=== PATIENT | female | born 1980 | race Caucasian/White ===

== ENCOUNTER 2023-05-19 18:49 | Emergency (ER) | payer MEDICAID, SELFPAY ==
[2023-05-19 18:58] VITALS: BP 104/52; BP 113/70; PULSE 90; PULSE 98; RESP 18; TEMP 37.2; O2SAT 94; O2SAT 97; BMI 34.1
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
--- OUTSIDE RECORDS SUMMARY | 2023-05-19 19:58 | XMS_ITS | Continuity of Care Document ---
Author Name Unknown Organization [facility] Address [address] [address]- Care Team Providers Care New Autos Delivery Driver Name Role Phone Valarie Cheung MD Primary Care Physician [place] [facility] [place] [facility] [address] [address]- Attending Physician: Valarie Cheung MD Admitting Physician: Valarie Cheung MD Referring Physician: Valarie Cheung MD Allergies, Adverse Reactions, Alerts Substance Reaction Severity Status Cipro Active Medications No Known Medications Vital Signs Most recent to oldest [Reference Range]: 1 Height 175 cm (03/12/21 2:15 PM) Weight 62 kg (03/12/21 2:15 PM) Oxygen Saturation [94-100 %] 98 % (03/12/21 2:15 PM) Pulse Rate [55-90 bpm] 111 bpm *H* (03/12/21 2:15 PM) Body Mass Index [18.5-24.99] 20.24 (03/12/21 2:15 PM) Blood Pressure [90-138/55-84 mm Hg] 102/ 70mm Hg (03/12/21 2:15 PM) Blood pressure sites Arm, left (03/12/21 2:15 PM) Weight Obtained Via Standing scale (03/12/21 2:15 PM)
--- OUTSIDE RECORDS SUMMARY | 2023-05-19 19:58 | XMS_ITS | Continuity of Care Document ---
Author Name Unknown Organization [facility] Address [address] [place] [address]- Care Team Providers Care Medical Insurance Clerk Name Role Phone Valarie Cheung MD Primary Care Physician Encounter [facility] [place] Date(s): 09/27/21 - 10/04/21 [facility] [address] [place] [address]- Encounter Diagnosis Migraine(Discharge Diagnosis) - 09/27/21 Attending Physician: Gil Garcia Referring Physician: Not on Staff, Referring MD Allergies, Adverse Reactions, Alerts Substance Reaction Severity Status Cipro Active Medications SUMAtriptan 100 mg oral tablet 1 tablet = 100 mg, By Mouth, Daily, PRN for migraine headache, may repeat dose after 2 hours up to a maximum of 2, # 9 tablet, 0 Refills, Acute 10/11/21 10:57:00 EST, 09/27/21 10:57:00 EST, Tablet, [id number], Partial fill upon patient requ... Start Date: 09/27/21 Stop Date: 10/11/21 Status: Ordered Problem List Diagnosis Diagnosis Type Effective Dates Health Status Clini scottie Service Informant Migraine Discharge Diagnosis 09/27/21
--- OUTSIDE RECORDS SUMMARY | 2023-05-19 19:58 | XMS_ITS | Continuity of Care Document ---
Author Name Unknown Organization [facility] Address [address] [place] [id number]- Care Team Providers Care Technical Services Specialist Name Role Phone Valarie Cheung MD Primary Care Physician Encounter [facility] [place] Date(s): 04/22/21 - 05/22/21 [facility] [address] [address] [place] Allergies, Adverse Reactions, Alerts Substance Reaction Severity Status Cipro Active
--- OUTSIDE RECORDS SUMMARY | 2023-05-19 19:58 | XMS_ITS | Continuity of Care Document ---
Author Name Unknown Organization [facility] Address [address] [place] [address]- Care Team Providers Care Automatic Thread Winder Name Role Phone Valarie Cheung MD Primary Care Physician [phone] Encounter [facility] [place] Date(s): 03/07/21 - 04/06/21 [facility] [address] [place] [address]- Attending Physician: AdmtrKathleen Admitting Physician: Admtr, Ar8 Referring Physician: Admtr, Ar8 Allergies, Adverse Reactions, Alerts Substance Reaction Severity Status Cipro Active
--- OUTSIDE RECORDS SUMMARY | 2023-05-19 19:58 | XMS_ITS | Continuity of Care Document ---
Author Name Unknown Organization [facility] Address [address] [phone]- Care Team Providers Care Spray Worker Name Role Phone Valarie Cheung MD Primary Care Physician [place] [facility] [place] 05/19/21 [facility] [address] [address]- Attending Physician: Lana Santoyo MD Admitting Physician: Lana Santoyo MD Referring Physician: Valarie Cheung MD Allergies, Adverse Reactions, Alerts Substance Reaction Severity Status Cipro Active
--- OUTSIDE RECORDS SUMMARY | 2023-05-19 19:58 | XMS_ITS | Continuity of Care Document ---
Author Name Unknown Organization [facility] Address [address] [address]- Care Team Providers Care Distribution Center Administrator Name Role Phone Valarie Cheung MD Primary Care Physician Encounter [facility] Date(s): 04/09/21 - 05/09/21 [facility] [address] [address]- [place] Allergies, Adverse Reactions, Alerts Substance Reaction Severity Status Cipro Active
--- OUTSIDE RECORDS SUMMARY | 2023-05-19 19:58 | XMS_ITS | Continuity of Care Document ---
Author Name Unknown Organization [facility] Address [address] [place] [id number]- Care Team Providers Care Wharf Attendant Name Role Phone Valarie Cheung MD Primary Care Physician [place] [facility] [place](s[place] 04/03/21 - 04/10/21 [place] [id number] [address]- Attending Physician: Laan Santoyo MD Admitting Physician: Lana Santoyo MD Referring Physician: Lana Santoyo MD Allergies, Adverse Reactions, Alerts Substance Reaction Severity Status Cipro Active
--- OUTSIDE RECORDS SUMMARY | 2023-05-19 19:59 | XMS_ITS | Continuity of Care Document ---
Author Name Unknown Organization [facility] Address [address] [id number]- Care Team Providers Care Microbiology Lab Analyst Name Role Phone Valarie Cheung MD Primary Care Physician Encounter [facility] [place] Date(s): 04/03/21 - 05/03/21 [place] [id number] [address]- Attending Physician: Admtr, Ar8 Admitting Physician: Admtr, Ar8 Referring Physician: Admtr, Ar8 Allergies, Adverse Reactions, Alerts Substance Reaction Severity Status Cipro Active
--- OUTSIDE RECORDS SUMMARY | 2023-05-19 19:59 | XMS_ITS | Continuity of Care Document ---
Author Name Unknown Organization [facility] Address [address] [id number]- Care Team Providers Care Compensation Manager Name Role Phone Valarie Cheung MD Primary Care Physician [phone] Encounter [facility] [place] Date(s): 05/12/21 - 06/11/21 [place] [id number], [place] [address]- Attending Physician: Admtr, Ar8 Admitting Physician: Admtr, Ar8 Referring Physician: Admtr, Ar8 Allergies, Adverse Reactions, Alerts Substance Reaction Severity Status Cipro Active
--- OUTSIDE RECORDS SUMMARY | 2023-05-19 19:59 | XMS_ITS | Continuity of Care Document ---
Author Name Unknown Organization [facility] Address [address] [place] [address]- Care Team Providers Care Mortician Supplies Sales Representative Name Role Phone Valarie Cheung MD Primary Care Physician [place] [facility] [place]): [place] - 10/27/21 [facility] [address] [place] [address]- Attending Physician: Admtr, Ar8 Admitting Physician: Admtr, Ar8 Referring Physician: Admtr, Ar8 Allergies, Adverse Reactions, Alerts Substance Reaction Severity Status Cipro Active
[2023-05-19] MEDS: Erythromycin Base 0.5% Oph Oin 1 GM TUBE 1 CM EYE-LEFT (20:13)
[2023-05-19] MEDS: Diphth,Pertus(ACell),Tet Adult 0.5 ML SYRINGE IM (20:13)
[2023-05-19] MEDS: Bacitracin Oint 0.9 GM PACKET 4 APPL TOPICAL (20:13)
[2023-05-19 20:34] LABS: MANUAL DIFF FLAG NO
[2023-05-19 20:42] LABS: Basophils Absolute Auto 0.1 X10*3/uL (0.0-0.2); Basophils Percent Auto 0.6 % (0-2); Eosinophils Absolute Auto 0.2 X10*3/uL (0.0-0.4); Eosinophils Percent Auto 1.6 % (0-4); Hematocrit 34.4 % (37.0-47.0); Hemoglobin 11.8 g/dl (12.0-16.0); Imm Gran Abs Auto 0.06 X10*3/uL (0.00-0.03); Imm Gran Pct Auto 0.6 % (0.0-0.4); Lymphocytes Absolute Auto 1.5 X10*3/uL (1.2-4.9); Lymphocytes Percent Auto 15.5 % (20-40); Mean Corpuscular HGB Conc 34.3 g/dl (31.0-35.0); Mean Corpuscular Hemoglobin 32.2 pg (27.0-33.0); Mean Platelet Volume 10.7 fL (9.4-12.3); Monocytes Absolute Auto 0.9 X10*3/uL (0.1-1.2); Monocytes Percent Auto 8.7 % (2-11); Neutrophils Absolute Auto 7.1 x10*3/uL (2.0-8.3); Platelet Count 239 X10*3/uL (160-400); Red Blood Count 3.66 X10*6/uL (4.20-5.50); Red Cell Distribution Width 13.2 % (11.0-16.0); White Blood Count 9.8 X10*3/uL (4.8-10.8)
[2023-05-19 20:50] LABS: Lactic Acid 1.2 mmol/L (0.5-2.0)
[2023-05-19 21:03] LABS: Alanine Aminotransferase 24 U/L (0-31); Albumin Level 3.5 g/dL (3.5-5.0); Alkaline Phosphatase 79 U/L (39-117); Anion Gap 12 (12-20); Aspartate Amino Transferase 16 U/L (5-31); Bilirubin Direct 0.1 mg/dL (0.0-0.5); Blood Urea Nitrogen 16 mg/dL (9-16); Calcium 9.2 mg/dL (8.4-10.2); Carbon Dioxide 27 mmol/L (22-29); Chloride 102 mmol/L (96-108); Creatinine Clr Calc Pharmacy 134.6; Estimated Glomerular Filt Rate > 60; Glucose Random 105 mg/dL (60-115); Potassium 4.1 mmol/L (3.3-5.1); Sodium 137 mmol/L (135-145); Total Protein 6.1 g/dL (6.5-8.0)
[2023-05-19 21:07] LABS: Bilirubin Total < 0.5 mg/dL (0.0-1.0)
== END 2023-05-19 22:21 | disposition home or self-care (01) ==
PROVIDERS: Emergency Provider Emergency Medicine; PCP Physician Assistant
DX: S00.81XA Abrasion of other part of head, initial encounter (principal); T22.242A Burn of second degree of left axilla, initial encounter; T20.26XA Burn of second degree of forehead and cheek, initial encounter; T31.0 Burns involving less than 10% of body surface; H10.9 Unspecified conjunctivitis; X08.8XXA Exposure to other specified smoke, fire and flames, initial encounter; Y93.9 Activity, unspecified; Y92.9 Unspecified place or not applicable; Y99.9 Unspecified external cause status; Z23 Encounter for immunization; Z79.899 Other long term (current) drug therapy
CPT/HCPCS: 16025; 36415; 80048; 80076; 83605; 85025; 87040; 90471; 90715; 99282; 99284

== ENCOUNTER 2024-06-14 07:08 | Emergency (ER) | payer OTHER, SELFPAY ==
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
[2024-06-14 07:30] VITALS: BP 127/83; PULSE 81; RESP 18; TEMP 36.9; O2SAT 94; BMI 40.7
[2024-06-14 07:33] VITALS: BP 127/83; PULSE 81; RESP 18; TEMP 36.9; O2SAT 94
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
--- OUTSIDE RECORDS SUMMARY | 2024-06-14 07:58 | XMS_ITS | Patient Health Record ---
Author Organization [facility] Address [address] [place], [place] [id number] Support Name Relationship Address Phone Rita Begum Emergency Contact [address] [place] [address] Charline Hernandez Guarantor Unknown Allergies Allergen (clinical drug ingredient) Drug/Non Drug Allergy documented on EMR Reaction Allergy Type Onset Date Status ciprofloxacin Cipro Unknown Drug Allergy Act negar penicillin rash Drug Allergy Active Reason For Referral No Information Medications Medication SIG (Take, Route, Frequency, Duration) Notes Start Date End Date Status Valium 10 mg 1 tab(s) orally 3 times a day for 30 days Active cyclobenzaprine 5 mg 1 tab(s) orally qid for 30 day(s) 4 times a day Active metoclopramide 5 mg 1 tab(s) orally 4 times a day (before meals and at bedtime) for 12 week(s) as needed Not-Taking Social History Tobacco Use: Social History Observation Description Date Details (start date - stop date) Never Smoker NA - NA Smoking: Question Answer Notes Are you a: Never Smoker Problems Problem Type SNOMED Code ICD Code Onset Dates Problem Status W/U Status Risk Notes Problem Vitamin D deficiency (38911632) Vitamin D deficiency, unspecified (E55.9) Active confirmed Problem Anxiety disorder (988857250) Anxiety disorder, unspecified (F41.9) Active confirmed Problem Cramp in lower leg associated with rest (002943638) Sleep related leg cramps (G47.62) Active confirmed Problem Atherosclerosis of renal artery (41937463) Atherosclerosis of renal artery (I70.1) Active confirmed Problem Fibromyalgia (531981359) Fibromyalgia (M79.7) Active confirmed Problem 

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
--- NOTE | 2024-06-14 10:27 | PHA.MEDREC ---
Addendum entered by Freda Sanabria RPh 06/14/24 13:07: Med rec was reviewed by [facility]. Original Note: Pharmacy Consult ? Medication Reconciliation Pharmacy has completed the medication reconciliation. Spoke to patient to confirm med list patient states she is not taking any antibiotics, she takes Vitamin D2 1,250 on Mondays, she is now on Bupropion 300 mg daily. Patient says she is still taking Duloxetine 20 mg, however last fill date was 04-06 for 30 days. Patient has not started started taking Wegovy 0.25 every week .
[2024-06-14 16:18] VITALS: BP 142/91; PULSE 83; RESP 16; TEMP 36.9; O2SAT 94
--- NOTE | 2024-06-14 17:12 | PC.NURSE ---
Pt seen by Case Management and ready for D/C. Pt in need of ambulance for transportation home--Stefan expected around 5:30-6P. Pt will be sent to overflow unit while awaiting transportation. RN report given to JI Potts.
[2024-06-14 17:47] VITALS: BP 142/91; PULSE 83; RESP 16; TEMP 36.9; O2SAT 94
== END 2024-06-14 17:47 | disposition home or self-care (01) ==
PROVIDERS: Emergency Provider Emergency Medicine; PCP Pediatrics
DX: R39.89 Other symptoms and signs involving the genitourinary system (principal); E11.9 Type 2 diabetes mellitus without complications; Z79.84 Long term (current) use of oral hypoglycemic drugs; Z79.899 Other long term (current) drug therapy; Z79.85 Long-term (current) use of injectable non-insulin antidiabetic drugs
CPT/HCPCS: 99283; 99284

== ENCOUNTER 2024-08-10 12:03 | Inpatient (IN) | payer OTHER, SELFPAY ==
--- NOTE | ~2024-08-10 | XR_ITS ---
EXAMINATION: XR CERVICAL SPINE CLINICAL INFORMATION: Neck pain COMPARISON: None available. TECHNIQUE: AP and lateral views FINDINGS: Examination is nondiagnostic base and the inability to position patient in lateral projection. AP view revealed no abnormal findings in the visualized cervical spine and soft tissues. XR/XR cervical spine 2V IMPRESSION: Nondiagnostic study Electronically signed by: Manish Buckner MD 08/11/2024 04:02 PM EST
--- NOTE | ~2024-08-10 | CT_ITS ---
EXAMINATION: CT ANGIOGRAM OF THE CHEST WITH AND WITHOUT CONTRAST (CT PULMONARY ANGIOGRAM FOR PE) CLINICAL INFORMATION: sob, new hypoxia COMPARISON: No pertinent prior studies are available for comparison. TECHNIQUE: Prior to contrast administration, noncontrast localization images were obtained. Subsequently, multidetector volumetric imaging was performed from the thoracic inlet to the pubic symphysis through the chest, abdomen, and pelvis following the administration of 85 mL Omnipaque 350 intravenous contrast. No contrast reaction reported Sagittal, coronal, and MIP oblique sagittal (through the chest only) reformatted images were obtained on the CT workstation, uploaded to PACS, and reviewed. This CT examination was performed using dose optimization techniques as appropriate, variously including the following: *Automated exposure control *Adjustment of mA and/or kV according to patient size (this includes techniques or standardized protocols for targeted exams where dose is matched to indication/reason for exam; i.e. extremities or head) *Use of iterative reconstruction technique Total exam dose-length product: 869 mGy-cm FINDINGS: QUALITY OF STUDY/CONTRAST BOLUS: Markedly suboptimal. Attenuation of the pulmonary arteries 60 Hounsfield units. Over 250 Hounsfield units would be considered diagnostic. PULMONARY ARTERIES: There are no central pulmonary emboli detected. The presence or absence of pulmonary emboli beyond this cannot be commented upon with any degree of accuracy. There is a hypoattenuating area in the right lower lobe pulmonary artery that could represent an embolus (see brar image) but based upon this exam I cannot state this with any degree of certainty. Would recommend a repeat study. CORONARY ARTERY CALCIUM: None THORACIC AORTA: No aneurysm. LUNG: No focal consolidation, nodules or masses. Left basilar atelectasis is seen. PLEURA: No pleural effusion or pneumothorax. MEDIASTINUM: Normal heart size. No pericardial effusion. No hilar or mediastinal lymphadenopathy. No evidence of septal bowing or right heart strain. CHEST WALL/AXILLA: No axillary or internal mammary lymphadenopathy. OSSEOUS STRUCTURES: No acute or suspicious osseous abnormality. VISUALIZED ABDOMEN: The liver is markedly enlarged and low attenuation consistent with hepatic steatosis. The spleen is enlarged at 14 cm in greatest length. The visualized pancreas, adrenal glands and kidneys are unremarkable. CT/CT chest w IV con IMPRESSION: 1. Markedly suboptimal study. No central pulmonary emboli are seen. The presence or absence of pulmonary emboli beyond this cannot be commented upon with any degree of certainty. There is a question of a defect in a right lower lobe vessel. I would highly recommend a repeat study or VQ scan. 2. Incidental note made of enlarged fatty liver and splenomegaly. 3. VTE: indeterminate. Fleischner guidelines were followed. Electronically signed by: Vidal Mcdaniel MD 08/10/2024 08:48 PM [facility]
--- NOTE | ~2024-08-10 | XR_ITS ---
EXAMINATION: XR CHEST CLINICAL INFORMATION: Shortness of breath. COMPARISON: None available. TECHNIQUE: Frontal view of the chest was obtained. FINDINGS: Rotated patient positioning limits evaluation. No large, confluent airspace consolidation. No pleural effusion or pneumothorax. Limited evaluation of the cardiomediastinal silhouette. No acute osseous abnormality. XR/XR chest 1V IMPRESSION: Rotated patient positioning limits evaluation. No large, confluent airspace consolidation. Electronically signed by: Celestine Michele MD 08/10/2024 05:51 PM [facility]
[2024-08-10 12:21] VITALS: BP 100/84; BP 119/74; PULSE 88; RESP 16; TEMP 36.7; O2SAT 95; O2SAT 98; BMI 42.2
--- NOTE | 2024-08-10 12:25 | ECG_ITS ---
Test Reason : SOB Blood Pressure : / mmHG Vent. Rate : 083 BPM Atrial Rate : 083 BPM P-R Int : 170 ms QRS Dur : 080 ms QT Int : 362 ms P-R-T Axes : 024 012 -11 degrees QTc Int : 425 ms Normal sinus rhythm Normal ECG No previous ECGs available Referred By: Generic ED Physician Electronically Signed By:Lit Velez
[2024-08-10 13:30] LABS: MANUAL DIFF FLAG NO
[2024-08-10 13:32] LABS: Basophils Absolute Auto 0.1 X10*3/uL (0.0-0.2); Basophils Percent Auto 0.9 % (0-2); Eosinophils Absolute Auto 0.2 X10*3/uL (0.0-0.4); Eosinophils Percent Auto 2.6 % (0-4); Hemoglobin 13.7 g/dl (12.0-16.0); Imm Gran Abs Auto 0.07 X10*3/uL (0.00-0.03); Imm Gran Pct Auto 0.8 % (0.0-0.4); Lymphocytes Absolute Auto 1.4 X10*3/uL (1.2-4.9); Lymphocytes Percent Auto 15.5 % (20-40); Mean Corpuscular HGB Conc 32.6 g/dl (31.0-35.0); Mean Corpuscular Hemoglobin 30.4 pg (27.0-33.0); Mean Corpuscular Volume 93.3 fL (80.0-98.0); Mean Platelet Volume 11.3 fL (9.4-12.3); Monocytes Absolute Auto 0.7 X10*3/uL (0.1-1.2); Monocytes Percent Auto 8.2 % (2-11); Neutrophils Absolute Auto 6.4 x10*3/uL (2.0-8.3); Platelet Count 208 X10*3/uL (160-400); Red Cell Distribution Width 15.3 % (11.0-16.0); White Blood Count 8.9 X10*3/uL (4.8-10.8)
[2024-08-10 13:47] LABS: Alanine Aminotransferase 54 U/L (0-31); Albumin Level 4.1 g/dL (3.5-5.0); Alkaline Phosphatase 127 U/L (39-117); Anion Gap 13 (12-20); Aspartate Amino Transferase 67 U/L (5-31); Bilirubin Total 0.4 mg/dL (0.0-1.0); Blood Urea Nitrogen 10 mg/dL (9-16); Calcium 9.2 mg/dL (8.4-10.2); Carbon Dioxide 30 mmol/L (22-29); Chloride 99 mmol/L (96-108); Creatinine Clr Calc Pharmacy 117.4; Estimated Glomerular Filt Rate > 60; Glucose Random 183 mg/dL (60-115); Potassium 4.1 mmol/L (3.3-5.1); Sodium 138 mmol/L (135-145); Total Protein 7.1 g/dL (6.5-8.0)
[2024-08-10 14:56] VITALS: BP 111/78; PULSE 83; RESP 19; TEMP 36.7; O2SAT 93
[2024-08-10 16:29] LABS: Ethanol < 10 mg/dL
[2024-08-10 16:39] LABS: HCG Quantitative < 2 mIU/mL
[2024-08-10 17:28] VITALS: BP 178/73; PULSE 78; RESP 17; TEMP 36.9; O2SAT 95
[2024-08-10 17:37] LABS: D Dimer High Sensitivity < 150 NG/ML
[2024-08-10 18:03] LABS: Influenza A PCR NEGATIVE (Negative); Influenza B PCR NEGATIVE (Negative); Resp Syncy Virus RNA Qual PCR NEGATIVE (Negative); SARS COV2 PCR INHOUSE NEGATIVE (Negative)
--- NOTE | 2024-08-10 18:42 | PC.NURSE ---
patient straight cathed, tolerated well. patient has 600 cc yellow urine output
[2024-08-10 18:46] LABS: Appearance Urine Clear; Color Urine Yellow; Glucose Urine UA 250 mg/dL (Negative); Leukocyte Esterase Urine Negative (Negative); Nitrite Urine Negative (Negative); PH 5.5 (5.0-9.0); Specific Gravity - Urine 1.025 (1.005-1.025); Urine Blood Negative (Negative); Urine Ketones Negative (Negative); Urine Protein Trace mg/dL (Neg-Trace)
[2024-08-10 19:00] LABS: Amphetamine Screen Urine Not Detected (Not Detect); Barbiturates, Urine Not Detected (Not Detect); Benzodiazepines Screen Urine POSITIVE (Not Detect); Buprenorphine Scr Not Detected (Not Detect); Cannabinoid Screen Urine POSITIVE (Not Detect); Cocaine Screen Urine Not Detected (Not Detect); Fentanyl, urine Not Detected (Not Detect); Methadone Screen, Urine Not Detected (Not Detect); Opiate Screen Urine Not Detected (Not Detect); Oxycodone Screen Urine Not Detected (Not Detect); Phencyclidine Screen Urine Not Detected (Not Detect)
[2024-08-10 19:12] LABS: B Type Natriuretic Peptide 23 pg/mL (<100)
--- NOTE | 2024-08-10 19:23 | ED.GENADULT ---
HPI - General Adult General Chief complaint: Altered Mental Status Stated complaint: fam sts off ,recurr mouth inf,conf x2d,95% 2lpm Time Seen by Provider: 08/10/24 14:38 Source: patient Limitations: no limitations History of Present Illness ED Provider: Stefani Calderon PA-C HPI narrative: 44 y/o F with hx of morbid obesity, GERD, chronic illness, PTSD, somatoform disorder, borderline personality disorder, migraines, DM2, bedbound presents with confusion x 2 days. Per the patient's PCI, the patient seems ?foggy? from her baseline. Apparently the patient has not been sleeping well over the past few days secondary to ?stress?. Denies recent cough or cold symptoms, fever, chest pain. Denies new unilateral calf pain or swelling. Denies hemoptysis. Related Data Home Medications ?Medication ?Instructions ?Recorded ?Confirmed baclofen 20 mg tablet 20 mg PO QID 06/14/24 06/14/24 bupropion HCl 300 mg 24 hr tablet, 300 mg PO DAILY 06/14/24 06/14/24 extended release calcium carbonate 600 mg PO BID PRN indigestion 06/14/24 06/14/24 clonazepam 0.5 mg tablet 0.5 mg PO BID 06/14/24 06/14/24 duloxetine 20 mg capsule,delayed 60 mg PO DAILY 06/14/24 06/14/24 release ergocalciferol (vitamin D2) 1,250 1,250 mcg PO MO 06/14/24 06/14/24 mcg (50,000 unit) capsule famotidine 10 mg tablet (Pepcid AC) 10 mg PO DAILY PRN Acid Reflux 06/14/24 06/14/24 gabapentin 600 mg tablet 600 mg PO QID 06/14/24 06/14/24 magnesium citrate 83.3 mg chewable 83.3 mg PO DAILY 06/14/24 06/14/24 tablet metformin 500 mg tablet,extended 500 mg PO BID 06/14/24 06/14/24 release 24 hr multivitamin with minerals-folic 1 tab PO DAILY 06/14/24 06/14/24 acid 200 mcg chewable tablet (Multivitamin Gummies) olanzapine 20 mg tablet 20 mg PO BEDTIME 06/14/24 06/14/24 pantoprazole 40 mg tablet,delayed 40 mg PO DAILY@0630 06/14/24 06/14/24 release propranolol 20 mg tablet 20 mg PO QID 06/14/24 06/14/24 semaglutide (weight loss) 0.25 0.25 mg subcut QWEEK 06/14/24 mg/0.5 mL subcutaneous pen injector (Wegovy) sumatriptan succinate 100 mg tablet 100 mg PO NEEDED migraine 06/14/24 06/14/24 Allergies Allergy/AdvReac Type Severity Reaction Status Date / Time Penicillins Allergy Swelling Verified 08/10/24 12:24 Review of Systems Review of Systems: Yes all other systems are reviewed and are negative Constitutional: Constitutional: Denies fatigue and Denies fever(s) Cardiovascular: Cardiovascular: Denies chest pain and Denies dyspnea Respiratory: Respiratory: Denies cough, Denies dyspnea and Denies wheezing Gastrointestinal: Gastrointestinal: Denies abdominal pain, Denies nausea and Denies vomiting Endocrine: Endocrine: Denies fatigue Allergic/Immunologic: Allergic/Immunologic: Denies wheezing PMFSH Past Medical History Attestation statement: The following information was validated with the patient. Medical History (Updated 08/10/24 @ 20:02 by BRENDA Cottrell) Somatoform disorder Migraines Depression Borderline personality disorder DM2 (diabetes mellitus, type 2) PTSD (post-traumatic stress disorder) Bedbound Social History Social History (Updated 06/14/24 @ 07:21 by Destinee Hernandez DO) Patient Tobacco Use Status: Never used Tobacco Advance Directives: No Advance Directives Information Provided: Yes Do you have a plan to hurt others: No Plan Physical Exam ED Vital Signs: Vital Signs - 24 hr 08/10/24 12:21 08/10/24 14:56 08/10/24 17:28 Temperature 98.1 F 98.1 F 98.4 F Pulse Rate 88 83 78 Respiratory Rate 16 19 17 Blood Pressure 119/74 111/78 178/73 H Pulse Oximetry 98 93 95 Oxygen Delivery Method Nasal Cannula Nasal Cannula Nasal Cannula Oxygen Flow Rate 2 2 BMI result Body Mass Index 42.2 Const Other: Alert, appears older than stated age, lying flat in bed Orientation/consciousness: oriented to person, oriented to place and patient oriented x3 Resp Other: Lungs clear to auscultation, poor inspiratory effort noted Cardio Other: Normal peripheral perfusion Skin Other: Warm dry no rash Neuro Other: Can not give me the complete accurate date General: oriented to person, oriented to place, patient oriented x3, no focal motor deficits and CN's II-XI intact bilaterally Psych Other: Calm cooperative Medications Administered Discontinued Medications Generic Name Dose Route Start Last Admin Trade Name Tyson PRN Reason Stop Dose Admin Iohexol 85 ml 08/10/24 19:42 08/10/24 19:42 Iohexol 350 Mg/Ml 100 Ml Infus..Btl IV 08/10/24 19:43 85 ml ONCE ONE Administration Medical Decision Making Medical Decision Making MDM Narrative: 44 y/o F with hx of morbid obesity, GERD, chronic illness, PTSD, somatoform disorder, borderline personality disorder, migraines, DM2, bedbound presents with confusion x 2 days. Per the patient's PCI, the patient seems ?foggy? from her baseline. Apparently the patient has not been sleeping well over the past few days secondary to ?stress?. Denies recent cough or cold symptoms, fever, chest pain. Denies new unilateral calf pain or swelling. Denies hemoptysis Problem: Morbid obesity, psychiatric illness, diabetes, bed-bound History: Per patient and caregiver I have considered the following differential diagnoses: Anoxic brain injury, UTI, pneumonia, PE, new heart failure Plan: The patient is somewhat confused, it is subtle, she can not give me a complete accurate date. Who knows how long she has been hypoxic for, we will add an ABG. Given her habitus and the fact that she is bed-bound, I am concerned for PE, we will add a D-dimer. This could be new heart failure, however she is lying flat comfortably, speaking in full sentences, not complaining of orthopnea, she is not overtly hypertensive. We will add troponin and BNP, and a chest x-ray. The new hypoxic the could be viral related, we will add a viral panel, however she has not had recent cough or cold symptoms and is afebrile. Thus far, screening labs, and an EKG were obtained. I have independently reviewed the following tests: Labs: No leukocytosis, not anemic, no electrolyte abnormality, troponin negative, BNP 23, viral panel negative, D-dimer less than 150 EKG: Normal sinus rhythm, rate 83, no ischemic changes no ectopy Chest x-ray: XR/XR chest 1V IMPRESSION: Rotated patient positioning limits evaluation. No large, confluent airspace consolidation. Electronically signed by: Celestine Michele MD 08/10/2024 05:51 PM [facility] Workstation: [id number] the chest x-rays of no value, obtaining a CT of the chest with IV contrast. CT chest: Lab Data 08/10/24 13:18 08/10/24 13:18 Labs: Lab Results 08/10/24 08/10/24 08/10/24 Range/Units 13:18 16:09 17:13 WBC 8.9 (4.8-10.8) X10*3/uL RBC 4.50 D (4.20-5.50) X10*6/uL Hgb 13.7 (12.0-16.0) g/dl Hct 42.0 D (37.0-47.0) % MCV 93.3 (80.0-98.0) fL MCH 30.4 (27.0-33.0) pg MCHC 32.6 (31.0-35.0) g/dl RDW 15.3 (11.0-16.0) % Plt Count 208 (160-400) X10*3/uL MPV 11.3 (9.4-12.3) fL Immature Gran % (Auto) 0.8 H (0.0-0.4) % Neut % (Auto) 72.0 (45-73) % Lymph % (Auto) 15.5 L (20-40) % [place] % (Auto) 8.2 (2-11) % Eos % (Auto) 2.6 (0-4) % Baso % (Auto) 0.9 (0-2) % Lymph # (Auto) 1.4 (1.2-4.9) X10*3/uL [place] # (Auto) 0.7 (0.1-1.2) X10*3/uL Eos # (Auto) 0.2 (0.0-0.4) X10*3/uL Baso # (Auto) 0.1 (0.0-0.2) X10*3/uL Abs Immat Gran (auto) 0.07 H (0.00-0.03) X10*3/uL Absolute Neuts (auto) 6.4 (2.0-8.3) x10*3/uL Absolute Nucleated RBC 0.000 (0.0-0.012) X10*3/uL Nucleated RBC % (auto) 0.0 (0.0-0.2) /100WBC D-Dimer High Sensitivty < 150 NG/ML Sodium 138 (135-145) mmol/L Potassium 4.1 (3.3-5.1) mmol/L Chloride 99 (96-108) mmol/L Carbon Dioxide 30 H (22-29) mmol/L Anion Gap 13 (12-20) BUN 10 (9-16) mg/dL Creatinine 0.82 (0.5-1.4) mg/dL Estim Creat Clear Calc 117.4 Estimated GFR > 60 Random Glucose 183 H (60-115) mg/dL Calcium 9.2 (8.4-10.2) mg/dL Total Bilirubin 0.4 (0.0-1.0) mg/dL AST 67 H (5-31) U/L ALT 54 H (0-31) U/L Alkaline Phosphatase 127 H (39-117) U/L Troponin I High Sens (<3.5-17.0) ng/L B-Natriuretic Peptide (<100) pg/mL Total Protein 7.1 (6.5-8.0) g/dL Albumin 4.1 (3.5-5.0) g/dL Beta HCG, Quant < 2 mIU/mL Urine Color Urine Appearance Urine pH (5.0-9.0) Ur Specific [place] (1.005-1.025) Urine Protein (Neg-Trace) mg/dL Urine Glucose (UA) (Negative) mg/dL Urine Ketones (Negative) mg/dL Urine Blood (Negative) Urine Nitrite (Negative) Ur Leukocyte Esterase (Negative) Urine Opiates Screen (Not Detect) Ur Buprenorphine Scrn (Not Detect) ng/mL Ur Oxycodone Screen (Not Detect) ng/mL Urine Methadone Screen (Not Detect) ng/mL Urine Fentanyl Screen (Not Detect) Ur Barbiturates Screen (Not Detect) Ur Phencyclidine Scrn (Not Detect) Ur Amphetamines Screen (Not Detect) U Benzodiazepines Scrn (Not Detect) Urine Cocaine Screen (Not Detect) U Marijuana (THC) Screen (Not Detect) Ethyl Alcohol < 10 mg/dL Influenza Type A (PCR) NEGATIVE (Negative) Influenza Type B (PCR) NEGATIVE (Negative) RSV RNA Qual (PCR) NEGATIVE (Negative) SARS-CoV-2 RNA (RT-PCR) NEGATIVE (Negative) 08/10/24 Range/Units 18:35 WBC (4.8-10.8) X10*3/uL RBC (4.20-5.50) X10*6/uL Hgb (12.0-16.0) g/dl Hct (37.0-47.0) % MCV (80.0-98.0) fL MCH (27.0-33.0) pg MCHC (31.0-35.0) g/dl RDW (11.0-16.0) % Plt Count (160-400) X10*3/uL MPV (9.4-12.3) fL Immature Gran % (Auto) (0.0-0.4) % Neut % (Auto) (45-73) % Lymph % (Auto) (20-40) % [place] % (Auto) (2-11) % Eos % (Auto) (0-4) % Baso % (Auto) (0-2) % Lymph # (Auto) (1.2-4.9) X10*3/uL [place] # (Auto) (0.1-1.2) X10*3/uL Eos # (Auto) (0.0-0.4) X10*3/uL Baso # (Auto) (0.0-0.2) X10*3/uL Abs Immat Gran (auto) (0.00-0.03) X10*3/uL Absolute Neuts (auto) (2.0-8.3) x10*3/uL Absolute Nucleated RBC (0.0-0.012) X10*3/uL Nucleated RBC % (auto) (0.0-0.2) /100WBC D-Dimer High Sensitivty NG/ML Sodium (135-145) mmol/L Potassium (3.3-5.1) mmol/L Chloride (96-108) mmol/L Carbon Dioxide (22-29) mmol/L Anion Gap (12-20) BUN (9-16) mg/dL Creatinine (0.5-1.4) mg/dL Estim Creat Clear Calc Estimated GFR Random Glucose (60-115) mg/dL Calcium (8.4-10.2) mg/dL Total Bilirubin (0.0-1.0) mg/dL AST (5-31) U/L ALT (0-31) U/L Alkaline Phosphatase (39-117) U/L Troponin I High Sens < 2.7 (<3.5-17.0) ng/L B-Natriuretic Peptide 23 (<100) pg/mL Total Protein (6.5-8.0) g/dL Albumin (3.5-5.0) g/dL Beta HCG, Quant mIU/mL Urine Color Yellow Urine Appearance Clear Urine pH 5.5 (5.0-9.0) Ur Specific [place] 1.025 (1.005-1.025) Urine Protein Trace (Neg-Trace) mg/dL Urine Glucose (UA) 250 H (Negative) mg/dL Urine Ketones Negative (Negative) mg/dL Urine Blood Negative (Negative) Urine Nitrite Negative (Negative) Ur Leukocyte Esterase Negative (Negative) Urine Opiates Screen Not Detected (Not Detect) Ur Buprenorphine Scrn Not Detected (Not Detect) ng/mL Ur Oxycodone Screen Not Detected (Not Detect) ng/mL Urine Methadone Screen Not Detected (Not Detect) ng/mL Urine Fentanyl Screen Not Detected (Not Detect) Ur Barbiturates Screen Not Detected (Not Detect) Ur Phencyclidine Scrn Not Detected (Not Detect) Ur Amphetamines Screen Not Detected (Not Detect) U Benzodiazepines Scrn POSITIVE H (Not Detect) Urine Cocaine Screen Not Detected (Not Detect) U Marijuana (THC) Screen POSITIVE H (Not Detect) Ethyl Alcohol mg/dL Influenza Type A (PCR) (Negative) Influenza Type B (PCR) (Negative) RSV RNA Qual (PCR) (Negative) SARS-CoV-2 RNA (RT-PCR) (Negative) Discharge Plan Discharge Clinical Impression: Confusion, Hypoxia Patient Disposition: Admitted As Inpatient Prescriptions: No Action gabapentin 600 mg tablet 600 mg PO QID sumatriptan succinate 100 mg tablet 100 mg PO NEEDED clonazepam 0.5 mg tablet 0.5 mg PO BID baclofen 20 mg tablet 20 mg PO QID calcium carbonate 600 mg calcium (1,500 mg) tablet 600 mg PO BID PRN (Reason: indigestion) pantoprazole 40 mg tablet,delayed release (DR/EC) 40 mg PO DAILY@0630 ergocalciferol (vitamin D2) 1,250 mcg (50,000 unit) capsule 1,250 mcg PO MO propranolol 20 mg tablet 20 mg PO QID metformin 500 mg tablet extended release 24 hr 500 mg PO BID olanzapine 20 mg tablet 20 mg PO BEDTIME bupropion HCl 300 mg tablet extended release 24 hr 300 mg PO DAILY Wegovy 0.25 mg/0.5 mL pen injector 0.25 mg subcut QWEEK duloxetine 20 mg capsule,delayed release(DR/EC) 60 mg PO DAILY famotidine [Pepcid AC] 10 mg Tablet 10 mg PO DAILY PRN (Reason: Acid Reflux) multivit with min-folic acid [Multivitamin Gummies] 200 mcg Tablet,Chewable 1 tab PO DAILY magnesium citrate 83.3 mg Tablet,Chewable 83.3 mg PO DAILY Print Language: Gambian
[2024-08-10 19:39] LABS: Troponin-I High Sensitivity < 2.7 ng/L (<3.5-17.0)
[2024-08-10] MEDS: iohexoL 350 MG/ML 100 ML INFUS..BTL 85 ML IV (19:42)
--- NOTE | 2024-08-10 20:16 | PHA.MEDREC ---
Addendum entered by Freda Sanabria RPh 08/10/24 20:55: Med rec was reviewed by [facility]. Original Note: Pharmacy Consult ? Medication Reconciliation Pharmacy has completed the medication reconciliation. Spoke with patient and patient family friend at bedside and patient mostly was able to confirm the name of her medications but confirming dosing of some of her meds the patient was confused about. She confirmed she is taking her Duloxetine 20mg tab and states it was recently changed but couldn't remember how it is taken now and stated I think its 4 times a day and the person at pt beside confirmed that it had recently changed but was not sure to what, but since the change the patient is taking it how it is written now, they were not sure if it is BID like we have in claims or QID like the patient says. Since the person at bedside confirmed the patient is taking it as written per the new directions I confirmed 1 tab BID as written the first time 07/06/24. The patient also confirmed she is now taking Metformin 500mg tabs but could not remember if she was taking it BID or once daily, patient was very confused when we got to this medication. I asked if there was someone at home we might be able to call and confirm, patient stated there are so many people helping me with my medications right now, it will be hard to find the person taking care of certain medications . The patient was able to confirm the rest of her medications and how she takes them. She confirmed her Vitamin D2 and Wegovy once a week on Wednesday and she confirmed she took them both this past Wednesday. She confirmed she took her medications this morning before coming in.
[2024-08-10 20:24] VITALS: O2SAT 95
[2024-08-10 20:33] LABS: ABG Refer to POC result
[2024-08-10 20:34] LABS: ABG Base Excess 5.2 mmol/L; ABG HCO3 31 mmol/L (22-26); ABG pCO2 53 mmHg (32-45); ABG pH 7.37 (7.35-7.45); ABG pO2 93 mmHg (83-108)
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
[2024-08-10] MEDS: Enoxaparin Sodium 120 MG/0.8 ML SYRINGE SUBCUT (21:57)
--- NOTE | 2024-08-10 22:08 | PC.NURSE ---
medicated per nov and notified JI Regalado
--- NOTE | 2024-08-10 22:20 | PC.NURSE ---
pt given drink snack and crispin kentrell per request. eating while laying down. pt states this is how she always does it. pt educated on aspiration risk
[2024-08-10] MEDS: Baclofen 20 MG TABLET PO (22:59)
[2024-08-10] MEDS: DULoxetine HCl 20 MG CAPSULE.DR PO (22:59)
[2024-08-10] MEDS: Multivitamin TABLET 2 TAB PO (22:59)
[2024-08-10] MEDS: OLANZapine 10 MG TABLET 20 MG PO (22:59)
[2024-08-10] MEDS: Gabapentin 600 MG TABLET PO (22:59)
[2024-08-10] MEDS: clonazePAM 0.5 MG TABLET PO (22:59)
[2024-08-10] MEDS: Propranolol HCL 10 MG TABLET PO (22:59)
[2024-08-10 23:33] VITALS: BP 117/75; PULSE 84; RESP 20; TEMP 36.8; O2SAT 94
[2024-08-11 00:29] VITALS: BMI 41.5
[2024-08-11 00:34] VITALS: BP 113/71; PULSE 85; RESP 18; TEMP 36.4; O2SAT 94
[2024-08-11] MEDS: 0.9 % Sodium Chloride Flush 3 ML SYRINGE IVFLUSH ×4 (00:52→21:07)
--- NOTE | 2024-08-11 01:06 | PC.NURSE ---
Airloss bed ordered but pt refused.
[2024-08-11 04:00] VITALS: BP 121/59; PULSE 86; RESP 18; TEMP 36.6; O2SAT 92
[2024-08-11 07:28] LABS: Basophils Absolute Auto 0.1 X10*3/uL (0.0-0.2); Eosinophils Absolute Auto 0.2 X10*3/uL (0.0-0.4); Eosinophils Percent Auto 3.1 % (0-4); Hematocrit 40.2 % (37.0-47.0); Hemoglobin 12.9 g/dl (12.0-16.0); Imm Gran Abs Auto 0.04 X10*3/uL (0.00-0.03); Imm Gran Pct Auto 0.6 % (0.0-0.4); Lymphocytes Absolute Auto 1.9 X10*3/uL (1.2-4.9); Lymphocytes Percent Auto 26.2 % (20-40); MANUAL DIFF FLAG NO; Mean Corpuscular HGB Conc 32.1 g/dl (31.0-35.0); Mean Corpuscular Hemoglobin 30.1 pg (27.0-33.0); Mean Corpuscular Volume 93.9 fL (80.0-98.0); Mean Platelet Volume 11.9 fL (9.4-12.3); Monocytes Absolute Auto 0.6 X10*3/uL (0.1-1.2); Monocytes Percent Auto 8.1 % (2-11); Neutrophils Absolute Auto 4.4 x10*3/uL (2.0-8.3); Platelet Count 205 X10*3/uL (160-400); Red Blood Count 4.28 X10*6/uL (4.20-5.50); Red Cell Distribution Width 15.4 % (11.0-16.0); White Blood Count 7.1 X10*3/uL (4.8-10.8)
[2024-08-11 07:42] VITALS: BP 118/69; PULSE 92; RESP 18; TEMP 36.4; O2SAT 93
[2024-08-11 07:58] LABS: Anion Gap 14 (12-20); Blood Urea Nitrogen 10 mg/dL (9-16); Calcium 9.5 mg/dL (8.4-10.2); Carbon Dioxide 28 mmol/L (22-29); Chloride 98 mmol/L (96-108); Creatinine Clr Calc Pharmacy 125.4; Estimated Glomerular Filt Rate > 60; Glucose Random 172 mg/dL (60-115); Potassium 3.6 mmol/L (3.3-5.1); Sodium 136 mmol/L (135-145)
[2024-08-11] MEDS: Propranolol HCL 10 MG TABLET PO ×3 (08:04→21:08)
[2024-08-11] MEDS: Gabapentin 600 MG TABLET PO ×4 (08:04→21:08)
[2024-08-11] MEDS: Baclofen 20 MG TABLET PO ×2 (08:04→13:22)
[2024-08-11] MEDS: DULoxetine HCl 20 MG CAPSULE.DR PO ×2 (08:04→21:08)
[2024-08-11] MEDS: buPROPion HCl XL 300 MG TAB.ER.24H PO (08:04)
[2024-08-11] MEDS: clonazePAM 0.5 MG TABLET PO ×2 (08:12→21:08)
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
--- NOTE | 2024-08-11 14:56 | HO.PM.IMPN ---
Subjective Subjective Date of Service: 08/11/24 Interval History: seen and evaluated feels better, no more confusion No reported hypoxia no other events Review of Systems Review of Systems: Yes all other systems are reviewed and are negative Physical Exam Vital Signs: Vital Signs: Last Vital Signs Temp 97.5 F 08/11/24 07:42 Pulse 92 08/11/24 07:42 Resp 18 08/11/24 07:42 BP 118/69 08/11/24 07:42 Pulse Ox 93 08/11/24 07:42 O2 Del Method Room Air 08/11/24 07:42 O2 Flow Rate 2 08/10/24 17:28 Oxygen Flow Rate 2 08/10/24 12:21 BMI result Body Mass Index 41.5 Const: Other: Constitutional : Awake, interactive, morbidly obese, not in distress Neck : Normal inspection, Supple Cardiovascular : RRR, no JVP, no lower extremity edema Respiratory : good bilateral air entry, no crackles, wheezes or rhonchi Gastrointestinal: soft, lax, Normal bowel sounds, Non tender Skin : Warm, Dry Neurological : Alert & oriented x3, No focal deficit Objective Data Active Medications Acetaminophen (Acetaminophen 325 Mg Tablet) 650 mg PO Q6H PRN PRN Reason: Pain, Mild (Pain Scale 1-3), fever or headache Baclofen (Baclofen 20 Mg Tablet) 20 mg PO QID [facility] Last Admin: 08/11/24 13:22 Dose: 20 mg Documented By: SAMANTA Bupropion HCl (Bupropion Hcl Xl 300 Mg Tab.Er.24h) 300 mg PO DAILY [facility] Last Admin: 08/11/24 08:04 Dose: 300 mg Documented By: PAPI Calcium Carbonate (Calcium Carbonate 750 Mg Tab.Chew) 750 mg PO Q4H PRN PRN Reason: Heartburn Clonazepam (Clonazepam 0.5 Mg Tablet) 0.5 mg PO BID [facility] Last Admin: 08/11/24 08:12 Dose: 0.5 mg Documented By: PAPI Duloxetine HCl (Duloxetine Hcl 20 Mg Capsule.Dr) 20 mg PO BID [facility] Last Admin: 08/11/24 08:04 Dose: 20 mg Documented By: PAPI Ergocalciferol (Ergocalciferol (Vitamin D2) 1,250 Mcg Capsule) 1,250 mcg PO MO [facility] Gabapentin (Gabapentin 600 Mg Tablet) 600 mg PO QID [facility] Last Admin: 08/11/24 13:22 Dose: 600 mg Documented By: SAMANTA Insulin Human Lispro (Insulin Lispro 100 Unit/Ml 3 Ml Vial) 0 unit SUBCUT QIDACHS [facility]; Protocol Magnesium Hydroxide (Milk Of Magnesia 30 Ml Oral.Susp) 30 ml PO DAILY PRN PRN Reason: Constipation Melatonin (Melatonin 3 Mg Tablet) 6 mg PO BEDTIME PRN PRN Reason: Insomnia Multivitamins/Vitamin C (Multivitamin Tablet) 2 tab PO BEDTIME [facility] Last Admin: 08/10/24 22:59 Dose: 2 tab Documented By: TERE Olanzapine (Olanzapine 10 Mg Tablet) 20 mg PO BEDTIME [facility] Last Admin: 08/10/24 22:59 Dose: 20 mg Documented By: TERE Omeprazole (Omeprazole 20 Mg Capsule.Dr) 20 mg PO DAILY@0630 [facility] Last Admin: 08/11/24 05:55 Dose: Not Given Documented By: JOSE Non-Admin Reason: Patient Refused Ondansetron HCl (Ondansetron Hcl 4 Mg/2 Ml Vial) 4 mg IVPUSH Q8H PRN PRN Reason: Nausea and Vomiting Propranolol HCl (Propranolol Hcl 10 Mg Tablet) 10 mg PO TID [facility]; Protocol Last Admin: 08/11/24 08:04 Dose: 10 mg Documented By: PAPI Sodium Chloride (0.9 % Sodium Chloride Flush 3 Ml Syringe) 3 ml IVFLUSH QSHIFT [facility] Last Admin: 08/11/24 08:04 Dose: 3 ml Documented By: PAPI Sumatriptan Succinate (Sumatriptan Succinate 100 Mg Tablet) 100 mg PO Q24H PRN PRN Reason: Migraine Headache Labs 08/11/24 05:44 08/11/24 05:44 Labs: Laboratory Results - last 24 hr 08/10/24 08/10/24 08/10/24 16:09 17:13 18:35 MCV MCH MCHC RDW Plt Count MPV Immature Gran % (Auto) Neut % (Auto) Lymph % (Auto) [place] % (Auto) Eos % (Auto) Baso % (Auto) Lymph # (Auto) [place] # (Auto) Eos # (Auto) Baso # (Auto) Abs Immat Gran (auto) Absolute Neuts (auto) Absolute Nucleated RBC Nucleated RBC % (auto) D-Dimer High Sensitivty < 150 O2 Saturation ABG pH at Pt Temp ABG pCO2 at Pt Temp ABG pO2 at Pt Temp ABG HCO3 ABG Base Excess (Actual) Anion Gap Estim Creat Clear Calc Estimated GFR Random Glucose Calcium Troponin I High Sens < 2.7 B-Natriuretic Peptide 23 Beta HCG, Quant < 2 Urine Color Yellow Urine Appearance Clear Urine pH 5.5 Ur Specific [place] 1.025 Urine Protein Trace Urine Glucose (UA) 250 H Urine Ketones Negative Urine Blood Negative Urine Nitrite Negative Ur Leukocyte Esterase Negative Urine Opiates Screen Not Detected Ur Buprenorphine Scrn Not Detected Ur Oxycodone Screen Not Detected Urine Methadone Screen Not Detected Urine Fentanyl Screen Not Detected Ur Barbiturates Screen Not Detected Ur Phencyclidine Scrn Not Detected Ur Amphetamines Screen Not Detected U Benzodiazepines Scrn POSITIVE H Urine Cocaine Screen Not Detected U Marijuana (THC) Screen POSITIVE H Ethyl Alcohol < 10 Influenza Type A (PCR) NEGATIVE Influenza Type B (PCR) NEGATIVE RSV RNA Qual (PCR) NEGATIVE SARS-CoV-2 RNA (RT-PCR) NEGATIVE 08/10/24 08/11/24 20:29 05:44 MCV 93.9 MCH 30.1 MCHC 32.1 RDW 15.4 Plt Count 205 MPV 11.9 Immature Gran % (Auto) 0.6 H Neut % (Auto) 61.0 Lymph % (Auto) 26.2 [place] % (Auto) 8.1 Eos % (Auto) 3.1 Baso % (Auto) 1.0 Lymph # (Auto) 1.9 [place] # (Auto) 0.6 Eos # (Auto) 0.2 Baso # (Auto) 0.1 Abs Immat Gran (auto) 0.04 H Absolute Neuts (auto) 4.4 Absolute Nucleated RBC 0.000 Nucleated RBC % (auto) 0.0 D-Dimer High Sensitivty O2 Saturation 97.0 ABG pH at Pt Temp 7.37 ABG pCO2 at Pt Temp 53 H ABG pO2 at Pt Temp 93 ABG HCO3 31 H ABG Base Excess (Actual) 5.2 Anion Gap 14 Estim Creat Clear Calc 125.4 Estimated GFR > 60 Random Glucose 172 H Calcium 9.5 Troponin I High Sens B-Natriuretic Peptide Beta HCG, Quant Urine Color Urine Appearance Urine pH Ur Specific [place] Urine Protein Urine Glucose (UA) Urine Ketones Urine Blood Urine Nitrite Ur Leukocyte Esterase Urine Opiates Screen Ur Buprenorphine Scrn Ur Oxycodone Screen Urine Methadone Screen Urine Fentanyl Screen Ur Barbiturates Screen Ur Phencyclidine Scrn Ur Amphetamines Screen U Benzodiazepines Scrn Urine Cocaine Screen U Marijuana (THC) Screen Ethyl Alcohol Influenza Type A (PCR) Influenza Type B (PCR) RSV RNA Qual (PCR) SARS-CoV-2 RNA (RT-PCR) Assessment and Plan (1) Hypoxia: Status: Acute (2) Confusion: Status: Acute (3) Physical deconditioning: Status: Acute (4) Morbid obesity: Status: Acute Plan Pt is a 44-year-old female with a PMH significant for?HTN, [id number]-[id number] type 2 diabetes, peripheral neuropathy, migraines, GERD, morbid obesity, somatoform disorder, PTSD, borderline personality disorder, and chronically bed-bound who presents to the ED with?confusion and hypoxia. Pt will be admitted to the hospital for treatment and further evaluation of acute encephalopathy and acute hypoxia of unclear etiology: Obesity hypoventilation syndrome vs pulmonary embolism. EPisode of Hypoxia likely related to OHS vs OSBALDO CXR, BNP, troponin, CTA of chest negative along w negative D-dimer Monitor respiratory status to do overnight sleep study Acute Toxic encephalopathy likely related to polypharmacy, THC abuse, CO2 retention? agrees to quit THC products to get psychiatry to evaluate her medications Transaminitis CT of chest incidentally noted enlarged fatty liver with splenomegaly Follow up outpatient, likely fatty liver physical deconditioning PT eval Peripheral neuropathy Continue gabapentin Omm-pfblpap-tucdamnik type 2 diabetes Hold metformin Sliding-scale insulin, diabetic diet HTN Continue propranolol Migraines Continue sumatriptan GERD Continue PPI Full Code DVT Prophylaxis: Lovenox Pt will require a hospitalization overnight for evaluation of hypoxia pending sleep study, waiting Psychiatry evaluation Quality Stroke Does the patient have a stroke diagnosis?: No VTE Prior VTE?: No VTE Risk Level:: Medical - moderate - high VTE Device Contraindication: Treatment Not Indicated VTE Drug Contraindication: N/A - Med Ordered
[2024-08-11 15:19] VITALS: BP 121/73; PULSE 98; RESP 20; TEMP 36.6; O2SAT 92
[2024-08-11 16:07] LABS: Glucose, Whole Blood 361 mg/dL (60-115)
[2024-08-11] MEDS: Insulin Lispro 100 UNIT/ML 3 ML VIAL SUBCUT ×2 (16:53→21:08)
--- NOTE | 2024-08-11 16:54 | P.CNPS_ITS ---
History of Present Illness Date of Service: 08/11/2024 Chief Complaint: AMS Reason for Consult: psychosis Requesting physician: Beronica Powers Discussed with referring provider: Yes Sources of Information: patient interviewed, chart reviewed and crisis/core team assessment reviewed HPI Narrative: Ms. Hernandez is a 44 year-old woman admitted fo hypoxia. She has been reporting episodes where she sees change of scenery which she describes as someone pulling out curtain with a landscape like in a movie theater. She reports this landscape sometimes can look like a fire station, other times like other familiar places. She reports she has some awareness that what she is seeing others can't see. She also reports awareness that she is not in a fire station or the place in the curtain. She reports this has been going on for some months. She reports is not distressing. She denies any associated distortion of the thought or delusional content. She denies changes in her vision (significant changes in vision causing near blindness). In terms of history of psychosis, pt denies prior psychosis. She is on olanzapine which pt reports has been prescribed by her PCP. [facility] Medical History Somatoform disorder Migraines Depression Borderline personality disorder DM2 (diabetes mellitus, type 2) PTSD (post-traumatic stress disorder) Bedbound Diagnostics Vital Signs (24Hr): Vital Signs - 24 hr 08/10/24 17:28 08/10/24 23:33 08/11/24 00:34 Temperature 98.4 F 98.2 F 97.5 F Pulse Rate 78 84 85 Respiratory Rate 17 20 18 Blood Pressure 178/73 H 117/75 113/71 Pulse Oximetry 95 94 94 Oxygen Delivery Method Nasal Cannula Room Air Room Air Oxygen Flow Rate 2 08/11/24 04:00 08/11/24 07:42 08/11/24 15:19 Temperature 97.9 F 97.5 F 97.9 F Pulse Rate 86 92 98 Respiratory Rate 18 18 20 Blood Pressure 121/59 L 118/69 121/73 Pulse Oximetry 92 93 92 Oxygen Delivery Method Room Air Room Air Room Air Oxygen Flow Rate BMI result Body Mass Index 41.5 Labs 08/11/24 05:44 08/11/24 05:44 Labs: Laboratory Results - last 48 hr 08/10/24 08/10/24 08/10/24 13:18 16:09 17:13 WBC 8.9 RBC 4.50 D Hgb 13.7 Hct 42.0 D MCV 93.3 MCH 30.4 MCHC 32.6 RDW 15.3 Plt Count 208 MPV 11.3 Immature Gran % (Auto) 0.8 H Neut % (Auto) 72.0 Lymph % (Auto) 15.5 L [place] % (Auto) 8.2 Eos % (Auto) 2.6 Baso % (Auto) 0.9 Lymph # (Auto) 1.4 [place] # (Auto) 0.7 Eos # (Auto) 0.2 Baso # (Auto) 0.1 Abs Immat Gran (auto) 0.07 H Absolute Neuts (auto) 6.4 Absolute Nucleated RBC 0.000 Nucleated RBC % (auto) 0.0 D-Dimer High Sensitivty < 150 O2 Saturation ABG pH at Pt Temp ABG pCO2 at Pt Temp ABG pO2 at Pt Temp ABG HCO3 ABG Base Excess (Actual) Sodium 138 Potassium 4.1 Chloride 99 Carbon Dioxide 30 H Anion Gap 13 BUN 10 Creatinine 0.82 Estim Creat Clear Calc 117.4 Estimated GFR > 60 POC Glucose Random Glucose 183 H Calcium 9.2 Total Bilirubin 0.4 AST 67 H ALT 54 H Alkaline Phosphatase 127 H Troponin I High Sens B-Natriuretic Peptide Total Protein 7.1 Albumin 4.1 Beta HCG, Quant < 2 Urine Color Urine Appearance Urine pH Ur Specific [place] Urine Protein Urine Glucose (UA) Urine Ketones Urine Blood Urine Nitrite Ur Leukocyte Esterase Urine Opiates Screen Ur Buprenorphine Scrn Ur Oxycodone Screen Urine Methadone Screen Urine Fentanyl Screen Ur Barbiturates Screen Ur Phencyclidine Scrn Ur Amphetamines Screen U Benzodiazepines Scrn Urine Cocaine Screen U Marijuana (THC) Screen Ethyl Alcohol < 10 Influenza Type A (PCR) NEGATIVE Influenza Type B (PCR) NEGATIVE RSV RNA Qual (PCR) NEGATIVE SARS-CoV-2 RNA (RT-PCR) NEGATIVE 08/10/24 08/10/24 08/11/24 18:35 20:29 05:44 WBC 7.1 RBC 4.28 Hgb 12.9 Hct 40.2 MCV 93.9 MCH 30.1 MCHC 32.1 RDW 15.4 Plt Count 205 MPV 11.9 Immature Gran % (Auto) 0.6 H Neut % (Auto) 61.0 Lymph % (Auto) 26.2 [place] % (Auto) 8.1 Eos % (Auto) 3.1 Baso % (Auto) 1.0 Lymph # (Auto) 1.9 [place] # (Auto) 0.6 Eos # (Auto) 0.2 Baso # (Auto) 0.1 Abs Immat Gran (auto) 0.04 H Absolute Neuts (auto) 4.4 Absolute Nucleated RBC 0.000 Nucleated RBC % (auto) 0.0 D-Dimer High Sensitivty O2 Saturation 97.0 ABG pH at Pt Temp 7.37 ABG pCO2 at Pt Temp 53 H ABG pO2 at Pt Temp 93 ABG HCO3 31 H ABG Base Excess (Actual) 5.2 Sodium 136 Potassium 3.6 Chloride 98 Carbon Dioxide 28 Anion Gap 14 BUN 10 Creatinine 0.76 Estim Creat Clear Calc 125.4 Estimated GFR > 60 POC Glucose Random Glucose 172 H Calcium 9.5 Total Bilirubin AST ALT Alkaline Phosphatase Troponin I High Sens < 2.7 B-Natriuretic Peptide 23 Total Protein Albumin Beta HCG, Quant Urine Color Yellow Urine Appearance Clear Urine pH 5.5 Ur Specific [place] 1.025 Urine Protein Trace Urine Glucose (UA) 250 H Urine Ketones Negative Urine Blood Negative Urine Nitrite Negative Ur Leukocyte Esterase Negative Urine Opiates Screen Not Detected Ur Buprenorphine Scrn Not Detected Ur Oxycodone Screen Not Detected Urine Methadone Screen Not Detected Urine Fentanyl Screen Not Detected Ur Barbiturates Screen Not Detected Ur Phencyclidine Scrn Not Detected Ur Amphetamines Screen Not Detected U Benzodiazepines Scrn POSITIVE H Urine Cocaine Screen Not Detected U Marijuana (THC) Screen POSITIVE H Ethyl Alcohol Influenza Type A (PCR) Influenza Type B (PCR) RSV RNA Qual (PCR) SARS-CoV-2 RNA (RT-PCR) 08/11/24 16:01 WBC RBC Hgb Hct MCV MCH MCHC RDW Plt Count MPV Immature Gran % (Auto) Neut % (Auto) Lymph % (Auto) [place] % (Auto) Eos % (Auto) Baso % (Auto) Lymph # (Auto) [place] # (Auto) Eos # (Auto) Baso # (Auto) Abs Immat Gran (auto) Absolute Neuts (auto) Absolute Nucleated RBC Nucleated RBC % (auto) D-Dimer High Sensitivty O2 Saturation ABG pH at Pt Temp ABG pCO2 at Pt Temp ABG pO2 at Pt Temp ABG HCO3 ABG Base Excess (Actual) Sodium Potassium Chloride Carbon Dioxide Anion Gap BUN Creatinine Estim Creat Clear Calc Estimated GFR POC Glucose 361 H* Random Glucose Calcium Total Bilirubin AST ALT Alkaline Phosphatase Troponin I High Sens B-Natriuretic Peptide Total Protein Albumin Beta HCG, Quant Urine Color Urine Appearance Urine pH Ur Specific [place] Urine Protein Urine Glucose (UA) Urine Ketones Urine Blood Urine Nitrite Ur Leukocyte Esterase Urine Opiates Screen Ur Buprenorphine Scrn Ur Oxycodone Screen Urine Methadone Screen Urine Fentanyl Screen Ur Barbiturates Screen Ur Phencyclidine Scrn Ur Amphetamines Screen U Benzodiazepines Scrn Urine Cocaine Screen U Marijuana (THC) Screen Ethyl Alcohol Influenza Type A (PCR) Influenza Type B (PCR) RSV RNA Qual (PCR) SARS-CoV-2 RNA (RT-PCR) Imaging Radiology Impressions: ITS Impressions Chest X-Ray 08/10/24 16:18 IMPRESSION: Rotated patient positioning limits evaluation. No large, confluent airspace consolidation. Electronically signed by: Celestine Michele MD 08/10/2024 05:51 PM EST RP Chest CT 08/10/24 18:07 IMPRESSION: 1. Markedly suboptimal study. No central pulmonary emboli are seen. The presence or absence of pulmonary emboli beyond this cannot be commented upon with any degree of certainty. There is a question of a defect in a right lower lobe vessel. I would highly recommend a repeat study or VQ scan. 2. Incidental note made of enlarged fatty liver and splenomegaly. 3. VTE: indeterminate. Fleischner guidelines were followed. Electronically signed by: Vidal Mcdaniel MD 08/10/2024 08:48 PM EST RP Cervical Spine X-Ray 08/11/24 14:15 IMPRESSION: Nondiagnostic study Electronically signed by: Manish Buckner MD 08/11/2024 04:02 PM EST RP Mental Status Exam Mental Status Exam Narrative: Appearance: MO, in bed, in NAD Behavior: cooperative Psychomotor: no agitation or retardation noted Speech:clear, regular rate/rhythm/volume, spontaneous TP: mostly linear TC: feeling tired Mood: okay' Affect: somewhat constricted SI: denies HI: denies VH/AH: not sure I would call what she is seeing a hallucination, some description of it appears to be more illusion or distortion of her vision- given degree of awareness of what she is seeing, that others can't see, no associated delusional content nor distress related, not fully affecting her orientation. Delusions: none Insight/judgment: limited x 2. Memory/cog: alert, oriented to place, month and year but not to situation in that she is not able to tell this engineering writer why she was admitted medically (hypoxia). May benefit from MOCA Medications Medications Current Medications Acetaminophen (Acetaminophen 325 Mg Tablet) 650 mg PO Q6H PRN PRN Reason: Pain, Mild (Pain Scale 1-3), fever or headache Baclofen (Baclofen 20 Mg Tablet) 20 mg PO QID PRN PRN Reason: Muscle Spasm Bupropion HCl (Bupropion Hcl Xl 300 Mg Tab.Er.24h) 300 mg PO DAILY [facility] Last Admin: 08/11/24 08:04 Dose: 300 mg Calcium Carbonate (Calcium Carbonate 750 Mg Tab.Chew) 750 mg PO Q4H PRN PRN Reason: Heartburn Clonazepam (Clonazepam 0.5 Mg Tablet) 0.5 mg PO BID [facility] Last Admin: 08/11/24 08:12 Dose: 0.5 mg Duloxetine HCl (Duloxetine Hcl 20 Mg Capsule.Dr) 20 mg PO BID [facility] Last Admin: 08/11/24 08:04 Dose: 20 mg Enoxaparin Sodium (Enoxaparin Sodium 40 Mg/0.4 Ml Syringe) 40 mg SUBCUT Q24H [facility] Ergocalciferol (Ergocalciferol (Vitamin D2) 1,250 Mcg Capsule) 1,250 mcg PO MO ANÍBAL Gabapentin (Gabapentin 600 Mg Tablet) 600 mg PO QID [facility] Last Admin: 08/11/24 16:48 Dose: 600 mg Insulin Human Lispro (Insulin Lispro 100 Unit/Ml 3 Ml Vial) 0 unit SUBCUT QIDACHS [facility]; Protocol Magnesium Hydroxide (Milk Of Magnesia 30 Ml Oral.Susp) 30 ml PO DAILY PRN PRN Reason: Constipation Melatonin (Melatonin 3 Mg Tablet) 6 mg PO BEDTIME PRN PRN Reason: Insomnia Multivitamins/Vitamin C (Multivitamin Tablet) 2 tab PO BEDTIME [facility] Last Admin: 08/10/24 22:59 Dose: 2 tab Olanzapine (Olanzapine 10 Mg Tablet) 20 mg PO BEDTIME [facility] Last Admin: 08/10/24 22:59 Dose: 20 mg Omeprazole (Omeprazole 20 Mg Capsule.Dr) 20 mg PO DAILY@0630 [facility] Last Admin: 08/11/24 05:55 Dose: Not Given Ondansetron HCl (Ondansetron Hcl 4 Mg/2 Ml Vial) 4 mg IVPUSH Q8H PRN PRN Reason: Nausea and Vomiting Propranolol HCl (Propranolol Hcl 10 Mg Tablet) 10 mg PO TID [facility]; Protocol Last Admin: 08/11/24 15:51 Dose: 10 mg Sodium Chloride (0.9 % Sodium Chloride Flush 3 Ml Syringe) 3 ml IVFLUSH QSHIFT [facility] Last Admin: 08/11/24 15:51 Dose: 3 ml Sumatriptan Succinate (Sumatriptan Succinate 100 Mg Tablet) 100 mg PO Q24H PRN PRN Reason: Migraine Headache Allergies Allergies Allergy/AdvReac Type Severity Reaction Status Date / Time Penicillins Allergy Swelling Verified 08/10/24 12:24 Assessment & Plan Assessment & Plan (1) Psychosis: Status: Acute Code(s): F29 - Unspecified psychosis not due to a substance or known physiological condition Plan Ms. Hernandez is a 44 year-old woman admitted due to hypoxia. there has been some concern in terms of pt seeing change in scenery like someone pulling a curtain at movie theater and showing places like fire station. She does have awareness that others can't see it, does not always affect her own orientation to place. No associated delusional content noted. Not certain this is psychiatric in nature. Other possibilities include changes in vision creating some degree of illusion. If pt not already assessed by ophthalmology may recommend her doing so. Otherwise, will defer for OP providers to follow up with pt. No medication changes recommended at this time. May also consider head CT, injuries to occipital lobe. Total time managing care of this patient today ____ minutes.
[2024-08-11 19:21] VITALS: BP 119/74; PULSE 89; RESP 20; TEMP 36.2; O2SAT 93
[2024-08-11 20:13] LABS: Glucose, Whole Blood 247 mg/dL (60-115)
[2024-08-11] MEDS: Melatonin 3 MG TABLET 6 MG PO (21:08)
[2024-08-11] MEDS: Multivitamin TABLET 2 TAB PO (21:08)
[2024-08-11] MEDS: Enoxaparin Sodium 40 MG/0.4 ML SYRINGE SUBCUT (21:08)
[2024-08-11] MEDS: OLANZapine 10 MG TABLET 20 MG PO (21:08)
[2024-08-11] MEDS: metFORMIN HCl ER 500 MG TAB.ER.24H PO (21:09)
[2024-08-12 03:50] VITALS: BP 127/78; PULSE 95; RESP 18; TEMP 36.4; O2SAT 94
[2024-08-12] MEDS: Baclofen 20 MG TABLET PO (04:01)
[2024-08-12 07:37] VITALS: BP 120/76; PULSE 87; RESP 18; TEMP 36.3; O2SAT 95
[2024-08-12 07:43] LABS: Glucose, Whole Blood 207 mg/dL (60-115)
[2024-08-12] MEDS: Insulin Lispro 100 UNIT/ML 3 ML VIAL SUBCUT ×2 (07:59→12:13)
[2024-08-12] MEDS: 0.9 % Sodium Chloride Flush 3 ML SYRINGE IVFLUSH (08:00)
[2024-08-12] MEDS: clonazePAM 0.5 MG TABLET PO (08:01)
[2024-08-12] MEDS: Gabapentin 600 MG TABLET PO ×2 (08:01→12:14)
[2024-08-12] MEDS: DULoxetine HCl 20 MG CAPSULE.DR PO (08:01)
[2024-08-12] MEDS: buPROPion HCl XL 300 MG TAB.ER.24H PO (08:01)
[2024-08-12] MEDS: Propranolol HCL 10 MG TABLET PO ×2 (08:01→15:32)
[2024-08-12] MEDS: Omeprazole 20 MG CAPSULE.DR PO (08:04)
[2024-08-12] MEDS: metFORMIN HCl ER 500 MG TAB.ER.24H PO (08:27)
[2024-08-12] MEDS: Acetaminophen 325 MG TABLET 650 MG PO (09:50)
--- NOTE | 2024-08-12 11:43 | P.F2F_ITS ---
Service Date Service Date: 08/12/24 Encounter Date of encounter: 08/12/24 Reasons for Services Signs and symptoms assessed: Physical deconditioning Reason for physical therapy: home safety and mobility and therapeutic exercises Homebound: Leaving the home is medically contraindicated at this time without the asist of a device and/or another person due th the listed conditions above and below. Reason homebound: unsteady gait / fall risk, leg weakness and unable to drive Certification: Based on the above findings, I certify that this patient is confined to the home and needs intermittent custodial care, physical therapy and/or speech therapy, or continues to need occupational therapy. The patient is under my care, and I have initiated the establishment of the plan of care. The patient will be followed by a physician who will periodically review the plan of care. Time Spent With Patient Time: Total time managing care of this patient today ____ minutes.
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
[2024-08-12 11:59] LABS: Glucose, Whole Blood 284 mg/dL (60-115)
[2024-08-12] MEDS: SUMAtriptan succinate 100 MG TABLET PO (12:13)
--- NOTE | 2024-08-12 13:19 | MHC.CM.PN ---
Addendum entered by Alejandra Calderon 08/12/24 14:32: BLS TRANSPORT BOOKED [facility]IA [facility] FOR 1600 HOURS Addendum entered by Alejandra Calderon 08/12/24 14:31: REPEAT PT EVAL ATTEMPTED, PT AGAIN DECLINES TO PARTICIPATE NO PT BEING RECOMMENDED AT THIS TIME PT WILL DC HOME WITH RESUMPTION OF 24/7 FAMILY DAY CARE PROVIDER CARE Original Note: PT WILL BE CLEARED TO DC TODAY, HOME PT WAS RECOMMENDED, HOWEVER CM HAS BEEN UNABLE TO SECURE ONE DUE TO PTS INSURANCE AND MENTAL HEALTH NEEDS [facility] WAS THE LAST VNA CONSIDERING, HOWEVER, THEY FEEL PT REQUIRES A VNA WITH MENTAL HEALTH PROVIDERS, HOWEVER THOSE VNAS HAVE ALREADY DECLINED REFERRAL PT WILL DC HOME WITH RESUMPTION OF HER 24/7 FAMILY DAY CARE PROVIDER CARE BLS TRANSPORT
[2024-08-12 15:33] VITALS: BP 135/79; PULSE 85; RESP 18; TEMP 36.3; O2SAT 92
== END 2024-08-12 16:41 | disposition home health service (06) | DRG 421 ==
LOC: HO.ED 20:02 → HO.EDOVER 21:26 → HO.S3 23:19
PROVIDERS: Physician Assistant Medical; Admitting Provider Student in an Organized Health Care Education/Training Program; Emergency Provider Student in an Organized Health Care Education/Training Program; PCP Pediatrics; Visit Provider Student in an Organized Health Care Education/Training Program
DX: E66.2 Morbid (severe) obesity with alveolar hypoventilation (principal); G92.8 Other toxic encephalopathy; E11.42 Type 2 diabetes mellitus with diabetic polyneuropathy; K76.0 Fatty (change of) liver, not elsewhere classified; F43.10 Post-traumatic stress disorder, unspecified; I10 Essential (primary) hypertension; K21.9 Gastro-esophageal reflux disease without esophagitis; G43.909 Migraine, unspecified, not intractable, without status migrainosus; F12.10 Cannabis abuse, uncomplicated; T50.915A Adverse effect of multiple unspecified drugs, medicaments and biological substances, initial encounter; Z68.41 Body mass index [BMI] 40.0-44.9, adult; Z71.3 Dietary counseling and surveillance; F60.3 Borderline personality disorder; Z20.822 Contact with and (suspected) exposure to COVID-19; Z74.01 Bed confinement status; Z87.891 Personal history of nicotine dependence; Z79.84 Long term (current) use of oral hypoglycemic drugs; Z79.899 Other long term (current) drug therapy
CPT/HCPCS: 0241U; 36415; 71045; 71260; 72040; 80048; 80053; 80307; 81003; 82803; 82947; 83880; 84484; 84702; 85025; 85379; 93005; 97162; 99285; J1650; Q9967

== ENCOUNTER → 2024-08-10 12:25 | Outpatient (BNV) | payer OTHER, SELFPAY | PROVIDERS: Admitting Provider Student in an Organized Health Care Education/Training Program; Emergency Provider Student in an Organized Health Care Education/Training Program; PCP Pediatrics; Visit Provider Internal Medicine Cardiovascular Disease | DX: R06.02 Shortness of breath (principal) | CPT/HCPCS: 93010 ==

== ENCOUNTER → 2024-08-10 21:21 | Outpatient (BNV) | payer OTHER, SELFPAY | PROVIDERS: Admitting Provider Student in an Organized Health Care Education/Training Program; Emergency Provider Student in an Organized Health Care Education/Training Program; PCP Pediatrics; Visit Provider Student in an Organized Health Care Education/Training Program | DX: R53.81 Other malaise (principal) | CPT/HCPCS: 99222; 99232; 99239; G0180 ==

== ENCOUNTER → 2024-08-10 21:21 | Outpatient (BNV) | payer OTHER, SELFPAY | PROVIDERS: Admitting Provider Student in an Organized Health Care Education/Training Program; Emergency Provider Student in an Organized Health Care Education/Training Program; PCP Pediatrics; Visit Provider Social Worker | DX: F29 Unspecified psychosis not due to a substance or known physiological condition (principal) | CPT/HCPCS: 99232 ==

== ENCOUNTER 2024-08-17 12:55 | Emergency (ER) | payer OTHER, SELFPAY ==
--- NOTE | ~2024-08-17 | XR_ITS ---
EXAMINATION: XR CHEST CLINICAL INFORMATION: hypoxia COMPARISON: 08/10/2024 chest x-ray and 08/14/2024 TECHNIQUE: Frontal view of the chest was obtained. FINDINGS: Evaluation is limited by the AP supine rotated position. Relative lucency of the left lung as compared to the wrist is unchanged in appearance and based on CT to be artifactual and related to positioning and technique. The visualized lungs are grossly clear. The cardiomediastinal silhouette is stable. XR/XR chest 1V IMPRESSION: No significant change since 08/10/2024 on this limited AP portable rotated radiograph. Electronically signed by: Mikey Jack MD 08/17/2024 06:43 PM [facility]
[2024-08-17 13:06] VITALS: BP 106/72; BP 130/86; PULSE 71; PULSE 78; RESP 14; TEMP 36.6; O2SAT 94; O2SAT 97; BMI 40.3
--- NOTE | 2024-08-17 13:07 | ECG_ITS ---
Test Reason : SOB Blood Pressure : / mmHG Vent. Rate : 075 BPM Atrial Rate : 075 BPM P-R Int : 174 ms QRS Dur : 074 ms QT Int : 370 ms P-R-T Axes : 027 010 -05 degrees QTc Int : 413 ms Normal sinus rhythm Normal ECG When compared with ECG of 10-AUG-2024 12:48, Nonspecific T wave abnormality now evident in Anterior leads Referred By: Destinee Hernandez Electronically Signed By:ARIEL GANN MD
--- NOTE | 2024-08-17 13:17 | ED_ITS ---
HPI - General Adult General Chief complaint: Dyspnea Stated complaint: LOW O2, NOT ON O2 AT BASELINE PER EMS Time Seen by Provider: 08/17/24 13:16 Source: patient, EMS, RN notes reviewed and old records reviewed Mode of arrival: EMS Limitations: no limitations History of Present Illness ED Provider: Morelia Moses PA-C HPI narrative: 44 yo bed-bound female (4.5 years) with a history of DM 2, HTN, GERD, migraines, morbid obesity, somatoform disorder, PTSD, borderline personality disorder who presents to the ER from her PCP office for evaluation of asymptomatic hypoxia. Patient was recently admitted to the hospital 08/10-08/12 for encephalopathy related to polypharmacy, episodes of hypoxia that were likely related to OSBALDO verses OHS. She had a negative CTA of the chest, negative D-dimer. She remained on room air during her admission and was discharged home. She was at her PCP office today for follow up after admission and they found her to be hypoxic to 87% on RA. She was placed on 2L NC when she didnt improve with deep breaths. SpO2 97% on 2L. She denies any associated SOB or chest pain. No lightheadedness or dizziness. She has been having burning at the end of urination since having a catheter while in the hospital. No abdominal pain, N/V/D or fevers. She reports she is supposed to have a sleep study but when they tried she did not tolerate it. complaint: hypoxia Onset (ago): unknown Relieving factors: none Exacerbating factors: none Associated symptoms: denies other symptoms Treatments prior to arrival: other (oxygen) Related Data Home Medications ?Medication ?Instructions ?Recorded ?Confirmed baclofen 20 mg tablet 20 mg PO QID 06/14/24 08/17/24 bupropion HCl 300 mg 24 hr tablet, 300 mg PO DAILY 06/14/24 08/17/24 extended release calcium carbonate 600 mg PO BID PRN indigestion 06/14/24 08/17/24 clonazepam 0.5 mg tablet 0.5 mg PO BID 06/14/24 08/17/24 duloxetine 20 mg capsule,delayed 20 mg PO BID 06/14/24 08/17/24 release ergocalciferol (vitamin D2) 1,250 1,250 mcg PO MO 06/14/24 08/17/24 mcg (50,000 unit) capsule gabapentin 600 mg tablet 600 mg PO QID 06/14/24 08/17/24 magnesium citrate 83.3 mg chewable 83.3 mg PO DAILY 06/14/24 08/17/24 tablet metformin 500 mg tablet,extended 500 mg PO BID 06/14/24 08/17/24 release 24 hr multivitamin with minerals-folic 2 tab PO BEDTIME 06/14/24 08/17/24 acid 200 mcg chewable tablet (Multivitamin Gummies) olanzapine 20 mg tablet 20 mg PO BEDTIME 06/14/24 08/17/24 pantoprazole 40 mg tablet,delayed 40 mg PO DAILY@0630 06/14/24 08/17/24 release propranolol 20 mg tablet 10 mg PO TID 06/14/24 08/17/24 semaglutide (weight loss) 0.25 0.25 mg subcut MO 06/14/24 08/17/24 mg/0.5 mL subcutaneous pen injector (Wegovy) sumatriptan succinate 100 mg tablet 100 mg PO NEEDED migraine 06/14/24 08/17/24 Previous Rx's ?Medication ?Instructions ?Recorded cefuroxime axetil 250 mg tablet 250 mg PO BID 7 days #14 tabs 08/17/24 Allergies Allergy/AdvReac Type Severity Reaction Status Date / Time Penicillins Allergy Swelling Verified 08/17/24 13:10 Review of Systems Review of Systems: Yes all other systems are reviewed and are negative FOR[facility]LY [facility] Past Medical History Medical History Somatoform disorder Migraines Depression Borderline personality disorder DM2 (diabetes mellitus, type 2) PTSD (post-traumatic stress disorder) Bedbound Social History Social History Household Members: None Housing: House Do you presently have visiting nurse or other home services: Yes ([employer] 19/04.) Patient Tobacco Use Status: Former Tobacco user Tobacco use type: Cigarette Smoked in Last 30 Days: No Second Hand Smoke Exposure: No Advance Directives: No Advance Directives Information Provided: Yes Patient : No service: No Physical Exam ED Vital Signs: Vital Signs - 24 hr 08/17/24 13:06 08/17/24 13:59 Temperature 97.9 F 98.2 F Pulse Rate 78 74 Respiratory Rate 14 16 Blood Pressure 130/86 111/70 Pulse Oximetry 97 94 Oxygen Delivery Method Room Air Room Air BMI result Body Mass Index 40.3 Appearance: Alert. Oriented X3. No acute distress. Head: normocephalic, atraumatic. Eyes: Pupils equal, round and reactive to light. ENT: Pharynx normal. No tonsillar swelling or exudate. Neck: Normal inspection. Neck supple. CVS: Normal heart rate and rhythm. Pulses normal. Respiratory: No respiratory distress. Breath sounds normal. Abdomen: Soft, obese, and nontender. +BS x4 Skin: Skin warm and dry. Normal skin color. Normal skin turgor. No rashes. Extremities: No lower extremity edema. No joint swelling. Contracted LE Neuro/psych: Oriented X 3. CN II-XII intact. Normal speech and cognition. Equal strength in UE. Medications Administered Discontinued Medications Generic Name Dose Route Start Last Admin Trade Name Freq PRN Reason Stop Dose Admin Cefuroxime Axetil 250 mg 08/17/24 15:18 08/17/24 15:25 Cefuroxime Axetil 250 Mg Tablet PO 08/17/24 15:19 250 mg ONCE ONE Administration Medical Decision Making Medical Decision Making MDM Narrative: 44 yo female presenting with asymptomatic hypoxia. Recently admitted for the same with unremarkable workup. Did not tolerate sleep study per her report. Not on home O2 and not on NIV at home. Her PCP ordered home O2 for her today but it will take a while to set it up. Spo2 87-95% in the ER. no SOB. may need to be admitted to obtain home O2. case d/w family independence case manager. Resp therapy evaluated the patient at the bedside. home oxygen being arranged. given recent hypoxia workup patient does not require this again - high suspicion for OHS along with OSBALDO and restrictive lung disease would benefit from formal sleep study and likely nocturnal NIV. comfortable with discharge home and outpatient follow up UA + will treat with po ceftin Differential Diagnosis Differential Diagnoses: The differential diagnosis associated with the presentation includes OSBALDO, OHS, restrictive lung disease, low suspicion for PE or any acute pulmonary process Admission/Observation Consideration of admission/observation: Escalation of care including admission/observation considered Lab Data [facility] Lab Attestation statement: I reviewed the patient's lab results. Labs: Lab Results 08/17/24 Range/Units 14:34 Urine Color Yellow Urine Appearance Cloudy Urine pH 6.5 (5.0-9.0) Ur Specific Mcwilliams 1.020 (1.005-1.025) Urine Protein 30 (1+) H (Neg-Trace) mg/dL Urine Glucose (UA) Negative (Negative) mg/dL Urine Ketones Negative (Negative) mg/dL Urine Blood Negative (Negative) Urine Nitrite Negative (Negative) Ur Leukocyte Esterase Moderate (2+) H (Negative) Urine RBC 0-2 (0-2) /HPF Urine WBC >50 H (0-5) /HPF Ur Squamous Epith Cells 6-10 (0-2) /HPF Urine Bacteria 4+ (None Seen) Hyaline Casts 0-2 (0-2) /LPF Independent Interpretation I performed an independent interpretation of an: Plain X-Ray Radiology Impression Discussion of test interpretation with radiology: I have reviewed the radiologist's reading. Independent Historian Clinical information obtained from an independent historian. History obtained from or confirmed by: EMS and Other (CHINESE INSTRUCTOR) External Record Review External record reviewed: Inpatient record, Prior outpatient labs and Prior outpatient radiology Tests considered The following testing was considered but not selected: repeat CTA considered - low suspicion for PE Prescription Management I considered prescription management with: Antibiotic and Other (O2) Chronic Conditions Patient?s care impacted by: Other (obesity) Critical Care Time Critical Care Time Critical Care Time: No Discharge Plan Discharge Clinical Impression: Hypoxia Patient Disposition: Home, Self-Care Instructions: Hypoxia (ED) Additional Instructions: you have acute hypoxia. you require supplemental oxygen. wear 2L via nasal cannula at all times for now recommend an outpatient sleep study as you would most likely benefit from CPAP for sleep apnea. you can follow up with Pulmonary to help arrange a sleep study as well you have a urinary tract infection Take the prescribed antibiotics as directed, complete the entire course and do not miss any doses next dose is due tomorrow morning follow up with your PCP as soon as possible Prescriptions: New cefuroxime axetil 250 mg tablet 250 mg PO BID 7 Days Qty: 14 0RF No Action gabapentin 600 mg tablet 600 mg PO QID sumatriptan succinate 100 mg tablet 100 mg PO NEEDED clonazepam 0.5 mg tablet 0.5 mg PO BID baclofen 20 mg tablet 20 mg PO QID calcium carbonate 600 mg calcium (1,500 mg) tablet 600 mg PO BID PRN (Reason: indigestion) pantoprazole 40 mg tablet,delayed release (DR/EC) 40 mg PO DAILY@0630 ergocalciferol (vitamin D2) 1,250 mcg (50,000 unit) capsule 1,250 mcg PO MO propranolol 20 mg tablet 10 mg PO TID metformin 500 mg tablet extended release 24 hr 500 mg PO BID olanzapine 20 mg tablet 20 mg PO BEDTIME bupropion HCl 300 mg tablet extended release 24 hr 300 mg PO DAILY Wegovy 0.25 mg/0.5 mL pen injector 0.25 mg subcut MO duloxetine 20 mg capsule,delayed release(DR/EC) 20 mg PO BID multivit with min-folic acid [Multivitamin Gummies] 200 mcg Tablet,Chewable 2 tab PO BEDTIME magnesium citrate 83.3 mg Tablet,Chewable 83.3 mg PO DAILY Referrals: [facility] [place] Pulmonology Services [Provider Group] Print Language: Sami
[2024-08-17 13:59] VITALS: BP 111/70; PULSE 74; RESP 16; TEMP 36.8; O2SAT 94
--- NOTE | 2024-08-17 14:12 | MHC.CM.ED ---
Received consult for assessment of d/c needs: pt recently d/c'd from [facility] on 08/12. Pt went to follow up at PCP today and had periods of low O2. Per pt and WINERY WORKER accompanying her, PCP said she would start the Home O2 process but that pt should go to the ED for evaluation of hypoxia and home O2. Pt has 24/7 WINERY WORKER care at home, is bedbound and transports via BLS. Discussed with ED provider who notes pt was experiencing intermittent drops in O2 sats into the 80's but recovered quickly. Per provider, pt could not tolerate a home sleep study in the past. Referred ED provider to [facility] Respiratory for assistance with home O2 evaluation. ED CM will follow for assistance if needed.
[2024-08-17 14:44] LABS: Appearance Urine Cloudy; Color Urine Yellow; Glucose Urine UA Negative (Negative); Leukocyte Esterase Urine Moderate (2+) (Negative); Nitrite Urine Negative (Negative); PH 6.5 (5.0-9.0); UMIC TRIGGER UACC YES; Urine Blood Negative (Negative); Urine Ketones Negative (Negative); Urine Protein 30 (1+) mg/dL (Neg-Trace)
[2024-08-17 14:49] LABS: Bacteria Urine 4+ (None Seen); Hyaline Casts Urine 0-2 /LPF (0-2); RBC Urine 0-2 /HPF (0-2); UACC Culture Trigger YES; WBC Urine >50 /HPF (0-5)
[2024-08-17] MEDS: cefuroxime axetiL 250 MG TABLET PO (15:25)
--- NOTE | 2024-08-17 15:25 | PC.NURSE ---
pt medicated per MAR
--- NOTE | 2024-08-17 15:32 | PC.NURSE ---
pt medicated per MAR
[2024-08-17 15:57] VITALS: PULSE 70; O2SAT 85; O2SAT 87; O2SAT 94
--- NOTE | 2024-08-17 16:01 | PHA.MEDREC ---
Addendum entered by Jil Scherer RPh 08/17/24 16:08: reviewed by [facility]. Original Note: Pharmacy Consult ? Medication Reconciliation Pharmacy has completed the medication reconciliation. Spoke with patient and she confirmed no changed has been made to her medications since her discharge from 08/12, I utilized discharge packet to confirm med rec. She confirmed she is taking the Wegovy 0.25 mg/0.5 mL injection and Vitamin D2 tab once a week on Mondays and took it this past Tuesday 08/14. Patient confirmed she took her morning medications this morning.
--- NOTE | 2024-08-17 16:23 | MHC.CM.ED ---
Per provider, Shyanne GUTIERREZ, RT has arranged [employer] for home oxygen. Will deliver tomorrow in the morning. Pt will discharge home with oxygen tank. RT in agreement. CM suggested patient be discharged in the am, when oxygen at home. Per provider, this in not an acute problem. Pt does not meet criteria for admission -per hospitalist. Pt will be discharged home.
[2024-08-17 16:24] VITALS: BP 138/84; PULSE 78; RESP 16; TEMP 36.6; O2SAT 95
[2024-08-17] MEDS: Ondansetron ODT 4 MG TAB.RAPDIS TRANSLINGU (19:36)
--- NOTE | 2024-08-17 19:37 | PC.NURSE ---
pt medicated with zofran for dry heaving
[2024-08-17 20:24] VITALS: BP 138/84; PULSE 78; RESP 16; TEMP 36.6; O2SAT 95
== END 2024-08-17 20:26 | disposition home or self-care (01) ==
PROVIDERS: Physician Assistant; Emergency Provider Emergency Medicine
DX: R09.02 Hypoxemia (principal); R06.02 Shortness of breath; R30.0 Dysuria; E11.9 Type 2 diabetes mellitus without complications; I10 Essential (primary) hypertension; Z87.891 Personal history of nicotine dependence; Z79.899 Other long term (current) drug therapy; Z79.84 Long term (current) use of oral hypoglycemic drugs
CPT/HCPCS: 71045; 81001; 87086; 93005; 99284

== ENCOUNTER → 2024-08-17 13:07 | Outpatient (BNV) | payer OTHER, SELFPAY | PROVIDERS: Emergency Provider Emergency Medicine; Visit Provider Internal Medicine Cardiovascular Disease | DX: R06.02 Shortness of breath (principal) | CPT/HCPCS: 93010 ==

== ENCOUNTER 2024-10-01 07:36 | Emergency (ER) | payer OTHER, SELFPAY ==
--- NOTE | ~2024-10-01 | CT_ITS ---
CLINICAL HISTORY: fall and facial trauma CT maxillofacial without contrast Comparison: None Findings: No acute fractures. Temporomandibular joints are intact. Paranasal sinuses and mastoid air cells clear. Orbital contents within normal limits. Visualized intracranial contents are within normal limits. No foreign bodies. IMPRESSION: Unremarkable maxillofacial CT. This document has been electronically signed by: Mikey Bernard MD on 10/01/2024 10:30:13
--- NOTE | ~2024-10-01 | CT_ITS ---
CLINICAL HISTORY: fall CT head without contrast Comparison: None Findings: No intra-axial mass, midline shift, hydrocephalus, or acute hemorrhage. No significant atrophy-like change or white matter disease. There is no sinus or mastoid fluid. The orbits are within normal limits. No skull fracture. IMPRESSION: 1. No acute intracranial findings This document has been electronically signed by: Mikey Bernard MD on 10/01/2024 10:30:15
--- NOTE | ~2024-10-01 | CT_ITS ---
CLINICAL HISTORY: fall CT cervical spine without contrast Comparison: None Findings: Normal vertebral body alignment. No significant degenerative change. No acute fractures or dislocations. No acute findings on limited view of the intracranial contents. Soft tissues of the neck are normal. No consolidation or effusion at the lung apices. IMPRESSION: No acute findings. This document has been electronically signed by: Mikey Bernard MD on 10/01/2024 10:30:12
[2024-10-01 07:50] VITALS: BP 119/72; BP 119/77; PULSE 80; PULSE 84; RESP 16; TEMP 36.6; O2SAT 97; BMI 38.7
[2024-10-01 07:59] VITALS: BP 119/77; PULSE 80; RESP 16; TEMP 36.6; O2SAT 97
--- NOTE | 2024-10-01 08:47 | ED.FALL ---
HPI - Fall General Chief Complaint: Fall Stated Complaint: FALL H/X PARALYZED AND BED BOUND -THINNERS PER EMS Time Seen by Provider: 10/01/24 08:18 Source: patient, EMS and RN notes reviewed Mode of arrival: EMS Limitations: no limitations History of Present Illness ED Provider: DR. Bennett HPI Narrative: 44-year-old female with PMH significant for HTN, dm, peripheral neuropathy, migraine, GERD, morbid obesity, somatoform disorder, PTSD, borderline personality, chronically bed-bound came in by ambulance for evaluation after she fell from a bed landing on her face, no LOC, no headache, not using anticoagulation. Related Data Home Medications ?Medication ?Instructions ?Recorded ?Confirmed baclofen 20 mg tablet 20 mg PO QID 06/14/24 08/17/24 bupropion HCl 300 mg 24 hr tablet, 300 mg PO DAILY 06/14/24 08/17/24 extended release calcium carbonate 600 mg PO BID PRN indigestion 06/14/24 08/17/24 clonazepam 0.5 mg tablet 0.5 mg PO BID 06/14/24 08/17/24 duloxetine 20 mg capsule,delayed 20 mg PO BID 06/14/24 08/17/24 release ergocalciferol (vitamin D2) 1,250 1,250 mcg PO MO 06/14/24 08/17/24 mcg (50,000 unit) capsule gabapentin 600 mg tablet 600 mg PO QID 06/14/24 08/17/24 magnesium citrate 83.3 mg chewable 83.3 mg PO DAILY 06/14/24 08/17/24 tablet metformin 500 mg tablet,extended 500 mg PO BID 06/14/24 08/17/24 release 24 hr multivitamin with minerals-folic 2 tab PO BEDTIME 06/14/24 08/17/24 acid 200 mcg chewable tablet (Multivitamin Gummies) olanzapine 20 mg tablet 20 mg PO BEDTIME 06/14/24 08/17/24 pantoprazole 40 mg tablet,delayed 40 mg PO DAILY@0630 06/14/24 08/17/24 release propranolol 20 mg tablet 10 mg PO TID 06/14/24 08/17/24 semaglutide (weight loss) 0.25 0.25 mg subcut MO 06/14/24 08/17/24 mg/0.5 mL subcutaneous pen injector (Wegovy) sumatriptan succinate 100 mg tablet 100 mg PO NEEDED migraine 06/14/24 08/17/24 Previous Rx's ?Medication ?Instructions ?Recorded cefuroxime axetil 250 mg tablet 250 mg PO BID 7 days #14 tabs 08/17/24 Allergies Allergy/AdvReac Type Severity Reaction Status Date / Time Penicillins Allergy Swelling Verified 10/01/24 07:55 Review of Systems Review of Systems: All other systems are reviewed and are negative Constitutional: Reports as per HPI and Reports no additional constitutional complaints Eyes: Reports as per HPI and Reports no additional eye complaints Reports system reviewed and no additional complaints, except as documented Cardiovascular: Reports as per HPI and Reports no additional cardiovascular complaints Respiratory: Reports as per HPI and Reports no additional respiratory complaints Gastrointestinal: Reports as per HPI and Reports no additional gastrointestinal complaints Genitourinary: Reports no additional female genitourinary complaints Musculoskeletal: Reports no additional musculoskeletal complaints Skin/Breast: Reports system reviewed and no additional complaints, except as docu Psychiatric: Reports no additional psychiatric complaints Endocrine: Reports no additional endocrine complaints Hematologic/Lymphatic: Reports no additional hematologic/lymphatic complaints Allergic/Immunologic: Reports no additional allergic/immunologic complaints Reports system reviewed and no additional complaints, except as documented and Reports Abnormal speech present [facility] Past Medical History Medical History Somatoform disorder Migraines Depression Borderline personality disorder DM2 (diabetes mellitus, type 2) PTSD (post-traumatic stress disorder) Bedbound Social History Social History Household Members: None Housing: House Do you presently have visiting nurse or other home services: Yes ([facility] services 19/04.) Patient Tobacco Use Status: Former Tobacco user Tobacco use type: Cigarette Smoked in Last 30 Days: No Second Hand Smoke Exposure: No Use of substances other than those prescribed or required for medical reasons: No Advance Directives: No Advance Directives Information Provided: No service: No Physical Exam Vital Signs: Vital Signs: Last Vital Signs Temp 97.9 F 10/01/24 07:59 Pulse 80 10/01/24 07:59 Resp 16 10/01/24 07:59 BP 119/77 10/01/24 07:59 Pulse Ox 97 10/01/24 07:59 O2 Del Method Nasal Cannula 10/01/24 07:50 Oxygen Flow Rate 2 10/01/24 07:50 BMI result Body Mass Index 38.7 Vital signs have been reviewed and appear to be correct. Blood pressure elevated. Heart rate normal. Respiratory rate normal. Temperature normal. Oxygen saturation normal. Appearance: Alert. Oriented X3. No acute distress. Head: Normal external exam. Normocephalic. Atraumatic. No Girno signs noted. No raccoon eyes noted Eyes: PERRLA. EOMI. Conjunctiva and sclera normal. Eyelids normal. ENT: TM's Normal. Pharynx normal. Uvula midline. Moist mucous membranes. No trismus noted. No drooling noted. No muffled voice noted. Neck: Normal inspection. Neck supple. FROM. No adenopathy. Thyroid Normal. No meningeal signs. No neck mass noted. CVS: Normal heart rate and rhythm. Heart sound normal. No murmurs noted. Pulses normal throughout. Respiratory: No respiratory distress. Painless inspiration. Breath sounds normal. No wheezes/rales/rhonchi noted. Chest nontender. No accessory muscle usage noted or decreased air movement noted. Abdomen: Soft and nontender. Bowel sounds normal in all 4 quadrants. No distention noted. No organomegaly noted. No visible injury noted. Back: No CVA tenderness. Full range of motion noted. Skin: Skin warm and dry. Normal skin color. Normal skin turgor. No rashes/lesions/lacerations noted. Extremities: No lower extremity edema. Extremities exhibit normal range of motion. Left shoulder tenderness, full range of motion, no deformity. Neuro: Oriented X 3. Cranial nerve exam: II-XII are grossly intact No motor deficit. No sensory deficit. Reflexes normal. Course Reevaluation(s) Reevaluation #1: S/p mechanical fall from bed, GCS of 15, neuro exam is at baseline, unremarkable head/facial/C-spine CT. Left shoulder x-ray shows no acute pathology. Time: 10:38 Medical Decision Making Differential Diagnosis Differential Diagnoses: The differential diagnosis associated with the presentation includes (Intracranial bleed, cervical spine injury, facial fracture, left shoulder fracture, chest injury, abdominal injury.) Admission/Observation Consideration of admission/observation: Escalation of care including admission/observation considered Independent Interpretation I performed an independent interpretation of an: CT Scan (Head/face/C-spine: No acute traumatic injury.) Radiology Impression Discussion of test interpretation with radiology: I have reviewed the radiologist's reading. Discharge Plan Discharge Clinical Impression: Accidental fall, Closed head injury, Contusion of left shoulder Patient Disposition: Home, Self-Care Instructions: Head Injury (ED) Prescriptions: No Action gabapentin 600 mg tablet 600 mg PO QID sumatriptan succinate 100 mg tablet 100 mg PO NEEDED clonazepam 0.5 mg tablet 0.5 mg PO BID baclofen 20 mg tablet 20 mg PO QID calcium carbonate 600 mg calcium (1,500 mg) tablet 600 mg PO BID PRN (Reason: indigestion) pantoprazole 40 mg tablet,delayed release (DR/EC) 40 mg PO DAILY@0630 ergocalciferol (vitamin D2) 1,250 mcg (50,000 unit) capsule 1,250 mcg PO MO propranolol 20 mg tablet 10 mg PO TID metformin 500 mg tablet extended release 24 hr 500 mg PO BID olanzapine 20 mg tablet 20 mg PO BEDTIME bupropion HCl 300 mg tablet extended release 24 hr 300 mg PO DAILY Wegovy 0.25 mg/0.5 mL pen injector 0.25 mg subcut MO duloxetine 20 mg capsule,delayed release(DR/EC) 20 mg PO BID multivit with min-folic acid [Multivitamin Gummies] 200 mcg Tablet,Chewable 2 tab PO BEDTIME magnesium citrate 83.3 mg Tablet,Chewable 83.3 mg PO DAILY cefuroxime axetil 250 mg tablet 250 mg PO BID 7 Days Qty: 14 0RF Referrals: Maisha Rowland MD [Primary Care Provider] - Print Language: Yakut
[2024-10-01 10:45] VITALS: BP 99/64; PULSE 86; RESP 21; TEMP 36.8; O2SAT 95
[2024-10-01 10:48] VITALS: BP 99/64; PULSE 86; RESP 21; TEMP 36.8; O2SAT 95
--- NOTE | 2024-10-01 12:09 | PC.NURSE ---
pt bedbound at baseline with significant weakness throughout body and all four extremities. pt up for d/c awaiting EMS transport at 12:30 to bring her home
== END 2024-10-01 12:30 | disposition home or self-care (01) ==
PROVIDERS: Emergency Provider Emergency Medicine; PCP Pediatrics
DX: S40.012A Contusion of left shoulder, initial encounter (principal); S09.90XA Unspecified injury of head, initial encounter; R51.9 Headache, unspecified; M54.2 Cervicalgia; W06.XXXA Fall from bed, initial encounter; Y93.89 Activity, other specified; Y92.89 Other specified places as the place of occurrence of the external cause; Y99.8 Other external cause status; I10 Essential (primary) hypertension; E11.9 Type 2 diabetes mellitus without complications; Z79.84 Long term (current) use of oral hypoglycemic drugs; Z79.3 Long term (current) use of hormonal contraceptives; Z79.899 Other long term (current) drug therapy
CPT/HCPCS: 70450; 70486; 72125; 99284

== ENCOUNTER → 2024-10-01 08:45 | Outpatient (BNV) | payer OTHER, SELFPAY | PROVIDERS: Emergency Provider Emergency Medicine; PCP Pediatrics; Visit Provider Specialist | DX: S09.90XA Unspecified injury of head, initial encounter (principal); W06.XXXA Fall from bed, initial encounter | CPT/HCPCS: 70450; 70486; 72125 ==

== ENCOUNTER 2024-11-08 12:59 | Outpatient (AMB) | payer OTHER, SELFPAY ==
[2024-11-08 13:09] VITALS: BP 110/72; PULSE 71; O2SAT 98
--- NOTE | 2024-11-08 13:09 | A.OFFVIS_ITS ---
Vital Signs 11/08/24 13:09 Height 5 ft 9 in BMI Reason not done Patient refused/unable BP 110/72 Blood Pressure Location Lt radial Position Sitting Pulse 71 Pulse Source Pulse Oximeter Pulse Oximetry (%) 98 Oxygen Delivery Method Nasal Cannula Oxygen Flow Rate 2 Intake Visit Reasons: Hypoxia Intake Note: pt is here as a new patient, for er follow up, mostly on oxygen 24 hours a day, she does have a cough with some production sometimes without. [employer] Compliance Coordinator Required: No Allergies Penicillins Allergy (Verified 11/08/24 14:01) Swelling Medication List - Last Reconciled 11/08/24 by Priya Uribe MD baclofen 20 mg PO QID bupropion HCl XL 300 mg PO DAILY calcium carbonate 600 mg PO BID PRN clonazepam 0.5 mg PO BID duloxetine 20 mg PO BID ergocalciferol (vitamin D2) 1,250 mcg PO MO gabapentin 600 mg PO QID magnesium citrate 83.3 mg PO DAILY metformin ER 500 mg PO BID multivit with min-folic acid 200 mcg (Multivitamin Gummies) 2 tabs PO BEDTIME olanzapine 20 mg PO BEDTIME pantoprazole 40 mg PO DAILY@0630 propranolol 10 mg PO TID semaglutide (weight loss) (Wegovy) 1 mg subcut 2XW sumatriptan succinate 100 mg PO NEEDED Do you need a note to return to daycare/school/sports/work: No HPI HPI Hypoxia: Details: THIS 44 YEARS OLD FEMALE, A CASE OF MORBID OBESITY, POSSIBLE OSBALDO/ OHS, BED BOUND FOR THE LAST 4-5 YEARS, WITH MULTIPLE MEDICAL PROBLEMS INCLUDING DIABETES MELLITUS, PERIPHERAL NEUROPATHY, PARAPARESIS, INABILITY TO GET OUT OF BED AND WALK, BORDERLINE PERSONALITY DISORDER, HYPERTENSION, GERD AND SOME MED TO FORM DISORDER. I NOTICED THAT SHE WAS IN [facility] DUE TO ENCEPHALOPATHY CAUSED BY POLYPHARMACY. SHE WAS NOTED TO HAVE FEATURES OF OSBALDO/OHS, SHE COULD NOT HAVE SLEEP STUDY DONE, WHICH WAS PLANNED TO BE OUTPATIENT. HER O2 SATS WERE ABOVE 90% MOST OF THE TIME AND SO SHE WAS NOT SENT HOME ON OXYGEN. SUBSEQUENTLY SHE HAD AN ER VISIT IN JULY 2024 AFTER , SHE WAS FOUND TO BE HYPOXEMIC IN HER PCPS OFFICE. IN THE EMERGENCY ROOM SHE WAS CHECKED, THOROUGHLY CTA OF THE CHEST WAS NEGATIVE FOR PULMONARY EMBOLISM OR PNEUMONIA, SHE WAS STARTED ON OXYGEN THERAPY AT 2 L/MINUTE AND HOME O2 WAS ARRANGED. THE PATIENT STATES THAT SHE DOES USE OXYGEN 2 L/MINUTE 24 HOURS A DAY. EXCEPT THAT DURING THE DAYTIME SHE MAY TAKE HERSELF OFF OXYGEN FOR ABOUT 1-2 HOURS AT A TIME. THIS WAS CONFIRMED BY THE ORE MINER BLASTING WHO TAKES CARE OF HER. AT HOME SHE HAS [employer] COVERAGE IS 24 HOURS A DAY. SHE DENIES COUGH OR WHEEZING OR SHORTNESS. OF BREATH AT REST SHE IS MOSTLY BED CONFINED, AND HAS NOT BEEN ABLE TO GET OUT OF THE BED. SHE IS GOING TO BE STARTED ON PHYSICAL THERAPY PROGRAM. THE PATIENT CLAIMS THAT SHE DOES USE O2 2 L/MINUTE AT NIGHT. WHILE IN THE HOSPITAL A SLEEP STUDY WAS ATTEMPTED BUT SHE COULD NOT SLEEP. SHE IS BROUGHT IN TO SEE ME TODAY FOR PULMONARY EVALUATION, AND TO MAKE ARRANGEMENT FOR POLYSOMNOGRAM STUDY IN THE SLEEP LAB, FOR ONGOING TREATMENT. HOWEVER AFTER CONVERSATION WITH THE PATIENT I FEEL THAT IT WILL BE DIFFICULT FOR HER TO HAVE THE SLEEP STUDY AT THIS TIME. I AM CHECKING PCO2 LEVEL TO SEE IF SHE HAS ONGOING HYPOVENTILATION DISORDER. [facility] Medical History Hypoventilation associated with obesity syndrome Restrictive lung disease Somatoform disorder Migraines Depression Borderline personality disorder DM2 (diabetes mellitus, type 2) PTSD (post-traumatic stress disorder) Bedbound Social History Household Members: None Housing: House Do you presently have visiting nurse or other home services: Yes ([employer] services 19/04.) Patient Tobacco Use Status: Former Tobacco user Tobacco use type: Cigarette Second Hand Smoke Exposure: No service: No Review of Systems Const All systems reviewed & are unremarkable except as noted in HPI and below Eyes Reports no additional complaints ENT Reports no additional complaints (THE PATIENT HAS NARROW OROPHARYNX), Denies nasal congestion and Denies nasal discharge Card Denies chest pain and Denies irregular heart rhythm Resp Reports as per HPI GI Reports no additional complaints Reports no additional complaints Musc Reports abnormal gait (PATIENT IS NON AMBULATORY, DUE TO PERIPHERAL NEUROPATHY), Reports myalgias and Reports muscle weakness Skin/Breast Reports system reviewed and no additional complaints, except as documented Neuro Reports abnormal gait (PATIENT IS NON AMBULATORY, DUE TO PERIPHERAL NEUROPATHY) Psych Reports no additional complaints Endo Reports no additional complaints Physical Exam Vital Signs: Last Vital Signs Pulse 71 11/08/24 13:09 BP 110/72 02/12/25 13:09 Pulse Ox 98 11/08/24 13:09 Oxygen Delivery Method Nasal Cannula 11/08/24 13:09 Oxygen Flow Rate 2 11/08/24 13:09 THIS PATIENT IS GROSSLY OBESE, CONFINED TO THE BED, .NON AMBULATORY Const General: comfortable, no acute distress, alert and awake Orientation/consciousness: patient oriented x3 HEENT Head: Yes normal to inspection General nose exam: No nasal polyps present and No nasal discharge present Face and sinus: Yes sinuses nontender Mouth: oropharynx abnormals (OROPHARYNX IS NARROW AND CROWDED MALLAMPATI SCALE 3) Throat: Yes posterior oropharynx normal Eyes General: appearance normal, both eyes and all related structures Neck Other: NECK IS GROSSLY OBESE Neck: Yes normal visual inspection, Yes no lymphadenopathy, Yes trachea midline and Yes no JVD Thyroid: Thyroid normal Chest Chest palpation & inspection: normal inspection of the chest, normal palpation of entire chest wall and no tenderness Resp Other: PERCUSSION NOTE IS NOT PERCEPTIBLE. BREATH SOUNDS ARE VERY DISTANT, . ESPECIALLY OVER THE BASILAR AREAS NO WHEEZES RHONCHI OR CREPITATIONS ARE HEARD. Cardio Palpation: normal PMI Rate: regular rate Rhythm: regular rhythm Heart sounds: no gallops and no murmurs GI Palpation (GI): Soft to palpation, nontender, No hepatosplenomegaly present, no masses and Other GI palpation findings present (ABDOMEN GROSSLY OBESE AND PROTUBERANT) Auscultation: normal bowel sounds Back/Spine/Pelvis Other: CAN NOT BE EXAMINED Skin General skin exam: no rashes or lesions noted Neuro Other: PATIENT HAS GENERALIZED WEAKNESS OF LOWER EXTREMITIES, DUE TO PERIPHERAL NEUROPATHY. PATIENT IS BED CONFINED AND NON AMBULATORY General: patient oriented x3 Extrem General: Yes normal to inspection, Yes no clubbing, cyanosis or edema, Yes no calf tenderness and Yes edema (NO DEFINITE PITTING EDEMA IS NOTED) Psych Appearance: grossly normal Speech and movement: Normal speech and movement present Assessment & Plan Assessment & Plan (1) Morbid obesity: Comment: PATIENT COULD NOT BE WEIGHED BUT SHE IS GROSSLY OBESE. Code(s): E66.01 - Morbid (severe) obesity due to excess calories Category: Medical Plan: PRACTICALLY SHE IS NOT CANDIDATE TO LOSE MUCH WEIGHT AT THIS TIME. (2) Restrictive lung disease: Comment: BECAUSE OF MORBID OBESITY SHE IS EXPECTED TO HAVE SIGNIFICANT RESTRICTIVE PULMONARY DISORDER Code(s): J98.4 - Other disorders of lung Category: Medical Plan: NOT ABLE TO DO PULMONARY FUNCTION TEST AT THIS TIME. ADVISED TO DO DEEP BREATHING EXERCISES 2 TO 3 TIMES A DAY (3) Hypoventilation associated with obesity syndrome: Comment: BECAUSE OF MORBID OBESITY AND BEING CONFINED TO BED SHE IS EXPECTED TO HAVE OBESITY RELATED HYPOVENTILATION SYNDROME. VENOUS BLOOD GASES TO BE CHECKED, Code(s): E66.2 - Morbid (severe) obesity with alveolar hypoventilation Category: Medical Plan: IF SHE IS A CO2 RETAINER THEN WILL MAKE ARRANGEMENT FOR HER TO HAVE BIPAP , VENTILATORY SUPPORT AT HOME. OTHER BELLA SHE NEEDS A SLEEP STUDY, , WHICH MAY BE DONE AT HOME. IN THE MEANTIME SHE IS USING O2 2 L/MINUTE CONTINUOUSLY. SHE IS ADVISED TO CONTINUE USING THIS AT NIGHT AND ALSO P.R.N. DURING. THE DAYTIME (4) Bedbound: Comment: BECAUSE OF MORBID OBESITY AND ALSO WEAKNESS OF LOWER EXTREMITIES SHE REMAINS BED CONFINED. Code(s): Z74.01 - Bed confinement status Category: Medical Plan: I TALKED TO THE PATIENT AND ALSO TO HER ORE MINER BLASTING, THAT ATTEMPT SHOULD BE MADE TO GET HER OUT OF BED AND SIT IN THE RECLINER DURING THE DAYTIME, . FOR MANY HOURS POSSIBLE Orders: Orders Venous Blood Gas Today E66.01 - Morbid (severe) obesity due to excess calories, E66.2 - Morbid (severe) obesity with alveolar hypoventilation, J98.4 - Other disorders of lung, Z74.01 - Bed confinement status Medications: Discontinued cefuroxime axetil Discontinued Reason: Patient Completed Course 250 mg PO BID 7 days 14 tabs 0RF Coding Level of Care Code New Pt Level 4 (77664) Diagnoses Morbid obesity E66.01 Restrictive lung disease J98.4 Hypoventilation associated with obesity syndrome E66.2 Bedbound Z74.01
--- OUTSIDE RECORDS SUMMARY | 2024-11-08 14:19 | XMS_ITS | Patient Health Record ---
Author Organization [facility] Address [address] [place], [place] [id number] Support Name Relationship Address Phone Rita Begum Emergency Contact [address] [place] [address] Charline Hernandez Guarantor Unknown Allergies Allergen (clinical [...] bedtime) for 12 week(s) as needed Not-Taking Problems Problem Type SNOMED Code ICD Code Onset Dates Problem Status W/U Status Risk Notes Problem Vitamin D deficiency (36453521) Vitamin D deficiency, unspecified (E55.9) Active confirmed Problem Anxiety disorder (288247967) Anxiety disorder, unspecified (F41.9) Active confirmed Problem Cramp in lower leg associated with rest (113506354) Sleep related leg cramps (G47.62) Active confirmed Problem Atherosclerosis of renal artery (06776286) Atherosclerosis of renal artery (I70.1) Active confirmed Problem Fibromyalgia (782993333) Fibromyalgia (M79.7) Active confirmed Problem 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
--- OUTSIDE RECORDS SUMMARY | 2024-11-08 14:19 | XMS_ITS | Patient Health Record ---
Author Organization [facility] Address [address] [place] [address] [address] [place] [address] Support Name Relationship Address Phone Charline Hernandez Guarantor Unknown Allergies Allergen (clinical drug ingredient) Drug/Non Drug Allergy documented on EMR Reaction Allergy Type Onset Date Status penicillin V Penicillin V Potassium Unknown Drug Allergy Active Reason For Referral No Information Medications Medication SIG (Take, Route, Frequency, Duration) Notes Start Date End Date Status Valium 5 MG 1 tablet as needed O rally TID PRN for 14 days 08/10/2019 Active Valium 5 MG 1/2 tab po PRN Twice a day for 30 days 07/27/2019 Active Social History Tobacco Use: Social History Observation Description Date Details (start date - stop date) Never Smoker NA - NA Alcohol Screen Form C Question Answer Notes Did you have a drink containing alcohol in the p ast year? 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) Active confirmed Plan Of Treatment Pending Test Test Name Order Date Potassium, Serum 05/24/2018 Magnesium, Serum 08/10/2019 Fibrinogen Activity 04/21/2019 Aldolase 04/21/2019 TSH 04/21/2019 TSH 05/17/2018 TSH 08/10/2019 Sedimentation Rate-Westergren 05/17/2018 ELIAS Comprehensive Panel 08/10/2019 ELIAS Comprehensive Panel 04/21/2019 Hepatitis BsAb 08/10/2019 Hepatitis BsAb 04/21/2019 Hepatitis BsAg 04/21/2019 Hepatitis BsAg 08/10/2019 Chem-Comprehensive 05/17/2018 Chem-Comprehensive 08/10/2019 Chem-Comprehensive 04/21/2019 Chem-Comprehensive 12/09/2018 TSH 12/09/2018 HEPATITIS C AB 04/21/2019 HEPATITIS C AB 08/10/2019 CPK Creatine Kinase,Total,Serum 04/21/20 19 *CBC With Differential/Platelet 12/10/19 19 *CBC With Differential/Platelet 04/21/20 19 PT and PTT 04/21/2019 Lyme Ab/Western Blot Reflex 12/09/2018 Lyme Ab/Western Blot Reflex 04/21/2019 Lyme Ab/Western Blot Reflex 08/10/2019 CBC (INCLUDES DIFF/PLT) 08/10/2019 Insurance Providers Payer Name Payer Address Payer Phone Subscriber Number Group Number Insured Name Patient Relationship to Insured Coverage Start Date Coverage End Date [facility] [address] [place], [place] [phone] [id number] Charline Osorio Self - patient is the insured Medical (General) History Medical History History ICD Code hx of muscle stiffness and joint stiffne ss of undetermined cause Surgical History Surgery Date(Month/Year) jaw surgery 2003 Hospitalization History Reason Date(Month/Year) stiffness, in hospital several times for this 06/2019
--- OUTSIDE RECORDS SUMMARY | 2024-11-08 14:20 | XMS_ITS | Patient Health Record ---
Author Organization [facility] Network Address [address] Floor 1 [place] [address] Care Team Providers Care Coiled Tubing Operator Name Role Phone ClovistravisBeronica Primary Care Provider B[place] denis HANCOCKLINDSEY Unavailable [phone] Allergies Allergen (clinical drug ingredient) Drug/Non Drug Allergy documented on EMR Reaction Allergy Type Onset Date Status ciprofloxacin Ciprofloxacin Unknown Drug Allergy Active Penicillin Unknown Drug Allergy Active Reason For Referral No Information Medications Medication SIG (Take, Route, Frequency, Duration) Notes Start Date End Date Status Reglan PRN Active diazePAM Muscle relaxant Active Advil prn Active Simethicone Active Excedrin PM Not-Taki ng Gabapentin 600 mg Active Pepto-Bismol Not-Moose ing Propranolol HCl Acti ve Tums Not-Taking Savella Active Pepcid Not-Taking Baclofen 10 MG/5ML as directed Intrathecal 20 mg Active Mylanta Not-Taking Cyclobenzaprine HCl Muscle relaxant Not-Taking Carafate 1 GM 1 tablet on an empty stomach Orally QID for 30 day(s) 10/03/2021 Active Ondansetron [address] 1 TABLET UNDER TONGUE EVERY 4-6HR NEEDED FOR NAUSEA QID for 30 days Active Pantoprazole Sodium 40 MG TAKE 1 TABLET BY MOUTH TWICE DAILY for 30 Active Problems Problem Type SNOMED Code ICD Code Onset Dates Problem Status W/U Status Risk Notes Problem Gastroesophageal reflux disease (572282349) GERD (K21.9) Active confirmed Plan Of Treatment Pending Test Test Name Order Date CREATININE 02/11/2021 HELICOBACTER PYLORI AG, EIA, STOOL 02/11 Insurance Providers Payer Name Payer Address Payer Phone Subscriber Number Group Number Insured Name Patient Relationship to Insured Coverage Start Date Coverage End Date [facility] [address] [place] [address] [id number] nikita Charline rogers Self - patient is the insured [facility] DIRECT PLAN [address] 

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
== END 2024-11-08 13:59 | disposition home or self-care (01) ==
PROVIDERS: PCP Pediatrics; Visit Provider Internal Medicine
DX: J98.4 Other disorders of lung (principal); E66.2 Morbid (severe) obesity with alveolar hypoventilation; Z74.01 Bed confinement status
CPT/HCPCS: 99204

== ENCOUNTER → 2024-11-08 12:59 | Outpatient (BNVA) | payer OTHER, SELFPAY | PROVIDERS: PCP Pediatrics; Visit Provider Internal Medicine | DX: J98.4 Other disorders of lung (principal); E66.01 Morbid (severe) obesity due to excess calories; E66.2 Morbid (severe) obesity with alveolar hypoventilation; Z74.01 Bed confinement status | CPT/HCPCS: 99202 ==

== ENCOUNTER 2024-11-08 14:00 | Outpatient (REF) | payer OTHER, SELFPAY ==
[2024-11-08 14:17] LABS: Venous Blood Gas Refer to POC result
[2024-11-08 14:23] LABS: VBG Base Excess 7.1 mmol/L; VBG HCO3 30 mmol/L (22-26); VBG pCO2 39 mmHg; VBG pO2 163 mmHg
== END 2024-11-08 14:01 | disposition home or self-care (01) ==
LOC: HO.LAB 14:00
PROVIDERS: PCP Pediatrics; Visit Provider Internal Medicine
DX: E66.2 Morbid (severe) obesity with alveolar hypoventilation (principal); J98.4 Other disorders of lung; Z74.01 Bed confinement status
CPT/HCPCS: 36415; 82803

== ENCOUNTER 2024-12-26 10:10 | Outpatient (AMB) | payer OTHER, SELFPAY ==
--- NOTE | 2024-12-26 10:49 | A.OFFVIS_ITS ---
Vital Signs 12/26/24 10:54 Pulse 80 Pulse Source Pulse Oximeter Pulse Oximetry (%) 97 Oxygen Delivery Method Nasal Cannula Oxygen Flow Rate 2 Intake Visit Reasons: Dyspnea Mender Knit Goods Required: No Poultry Process Worker: Poultry Process Worker offered & declined Accompanied by: command and control officer Allergies Penicillins Allergy (Verified 12/26/24 10:56) Swelling Medication List - Last Reconciled 12/26/24 by Liz Josue LPN baclofen 20 mg PO QID bupropion HCl XL 300 mg PO DAILY calcium carbonate 600 mg PO BID PRN clonazepam 0.5 mg PO BID duloxetine 20 mg PO BID ergocalciferol (vitamin D2) 1,250 mcg PO MO gabapentin 600 mg PO QID magnesium citrate 83.3 mg PO DAILY metformin ER 500 mg PO BID multivit with min-folic acid 200 mcg (Multivitamin Gummies) 2 tabs PO BEDTIME olanzapine 20 mg PO BEDTIME pantoprazole 40 mg PO DAILY@0630 propranolol 10 mg PO TID semaglutide (weight loss) (Wegovy) 1 mg subcut 2XW sumatriptan succinate 100 mg PO NEEDED tirzepatide (weight loss) (Zepbound) 2.5 mg subcut QWEEK HPI HPI Dyspnea: Details: Charline is a pleasant 44 year old female, former 25 pack year smoker, with underlying HTN, DMII, peripheral neuropathy, migraine, GERD, morbid obesity, somatoform disorder, PTSD, borderline personality, and chronically bed-bound came in by ambulance. She is on a stretcher and accompanied by SENIOR DEVOPS ENGINEER. She was initially referred by PCP for pulmonary evaluation and had established with Dr. Uribe however requested female provider. He had sent for venous blood gases which did not reveal significant CO2 retention. Unknown weight, as patient has not been weighed in quite some time. Appears morbidly obese. Previously on Ozempic, now on Zepbound with suboptimal effect. She was seen inpatient at [facility] and displayed symptoms suggestive of OSBALDO/OHS. She was also found to be hypoxic on July 2024 admission and has been using 2L supplemental oxygen continuously except 1-2 hours per day. She notes checking oxygen saturation at home, lowest 84% when using supplemental oxygen. She notes this occurs intermittently with minimal movement. CTA 08/20 negative for CTA however recommendations made for repeat CTA due to suboptimal study. She has been bedbound, mostly in a supine/lateral position rarely sitting upright. Reviewed prior records which document this back to 2021 in which she had a prolonged hospital stay at [facility]. Per report patient has been bedbound for many weeks secondary to weakness from gastritis causing her to have decreased PO intake and failure to thrive. At that time diagnosed with underlying somatoform disorder. She has multiple SENIOR DEVOPS ENGINEER who provide 24 hour care. She has been working closely with private pay PT one hour per week, awaiting insurance coverage for increased hours. At this time, she denies respiratory symptoms at baseline. She does endorse occasional cough which she attributes to recent cold and notes symptoms have been improving. She denies prior h/o asthma/COPD. Unable to perform PFT. She denies prior occupational exposures. She denies any pertinent family history. [facility] Medical History Hypoventilation associated with obesity syndrome Restrictive lung disease Somatoform disorder Migraines Depression Borderline personality disorder DM2 (diabetes mellitus, type 2) PTSD (post-traumatic stress disorder) Bedbound Social History (Updated 12/26/24 @ 11:00 by Liz Josue LPN) Household Members: None Housing: House Do you presently have visiting nurse or other home services: Yes (rn cardiac cath services 19/04.) Patient Tobacco Use Status: Former Tobacco user Tobacco use type: Cigarette Cigarette Packs Per Day: 1.0 Years Smoked: 25 years Second Hand Smoke Exposure: No service: No Review of Systems Const Denies chills, Reports daytime sleepiness, Denies excessive sweating, Reports fatigue, Denies fever(s), Reports lethargy, Denies night sweats and Reports weakness Eyes Denies dry eyes, Denies irritation and Denies itchy eyes ENT Reports Normal hearing present, Denies nasal congestion, Denies nasal discharge, Denies post nasal drip and Denies sore throat Card Denies chest pain, Denies chest pain at rest, Denies chest pain with activity, Denies claudication, Denies leg edema, Denies dyspnea, Denies dyspnea on exertion, Denies orthopnea and Denies paroxysmal nocturnal dyspnea Resp Denies chest congestion, Denies excessive phlegm production, Denies pain on inspiration, Denies pain with cough, Denies dyspnea, Denies dyspnea on exertion, Denies stridor and Denies wheezing Musc Denies myalgias Neuro Reports Normal hearing present and Reports weakness Endo Denies excessive sweating and Reports fatigue Freddie/Lymph Denies lymphadenopathy Aller/Immun Denies itchy eyes, Denies seasonal rhinorrhea and Denies wheezing Physical Exam Vital Signs: Last Vital Signs Pulse 80 12/26/24 10:54 Pulse Ox 97 12/26/24 10:54 Oxygen Delivery Method Nasal Cannula 12/26/24 10:54 Oxygen Flow Rate 2 12/26/24 10:54 Const Other: confined to stretcher in lateral position, obese abdomen General: cooperative, no acute distress and alert Nutritional Appearance: obese Orientation/consciousness: patient oriented x3 Limitations: physical limitations HEENT Head: Yes normal to inspection, Yes normocephalic and Yes atraumatic Ears: hearing grossly normal bilaterally and external ears normal Eyes Eyelids: Yes eyelids normal Sclerae: sclerae normal EOM: EOMs intact bilaterally Chest Chest palpation & inspection: normal inspection of the chest Resp Effort & Inspection: normal respiratory effort, able to speak in complete sentences, no audible wheezes, no cough, no stridor, not tachypneic, no tripod positioning and no use of accessory muscles Auscultation: diminished lung sounds Cardio Jugular venous distension: no JVD Rate: regular rate Rhythm: regular rhythm Skin Other: warm, dry General skin exam: no rashes or lesions noted Neuro General: patient oriented x3 Cranial nerves: Yes Normal hearing present Cognition (Neuro): normal cognition Extrem Other: contracted BLE General: Yes normal to inspection, Yes no clubbing, cyanosis or edema and Yes no pedal edema Psych Appearance: grossly normal and well kempt Speech and movement: Normal speech and movement present and Clear speech present Affect: normal affect Attitude: cooperative Thought process: Normal thought process present Thought content: Normal thought content present Results Reviewed Results Reviewed: [address] [address] [address] Scan Report Signed Patient: Charline Hernandez MR#: [id number] : 1980 Acct:[id number] Age/Sex: 44 / F ADM Date: 08/10/24 Loc: HO.ED Attending Dr: Ordering Physician: Stefani Calderon Date of Service: 08/10/24 Procedure(s): CT chest w IV con Accession Number(s): [id number] cc: Maisha Rowland MD; Stefani Calderon~ EXAMINATION: CT ANGIOGRAM OF THE CHEST WITH AND WITHOUT CONTRAST (CT PULMONARY ANGIOGRAM FOR PE) CLINICAL INFORMATION: sob, new hypoxia COMPARISON: No pertinent prior studies are available for comparison. TECHNIQUE: Prior to contrast administration, noncontrast localization images were obtained. Subsequently, multidetector volumetric imaging was performed from the thoracic inlet to the pubic symphysis through the chest, abdomen, and pelvis following the administration of 85 mL Omnipaque 350 intravenous contrast. No contrast reaction reported Sagittal, coronal, and MIP oblique sagittal (through the chest only) reformatted images were obtained on the CT workstation, uploaded to PACS, and reviewed. This CT examination was performed using dose optimization techniques as appropriate, variously including the following: *Automated exposure control *Adjustment of mA and/or kV according to patient size (this includes techniques or standardized protocols for targeted exams where dose is matched to indication/reason for exam; i.e. extremities or head) *Use of iterative reconstruction technique Total exam dose-length product: 869 mGy-cm FINDINGS: QUALITY OF STUDY/CONTRAST BOLUS: Markedly suboptimal. Attenuation of the pulmonary arteries 60 Hounsfield units. Over 250 Hounsfield units would be considered diagnostic. PULMONARY ARTERIES: There are no central pulmonary emboli detected. The presence or absence of pulmonary emboli beyond this cannot be commented upon with any degree of accuracy. There is a hypoattenuating area in the right lower lobe pulmonary artery that could represent an embolus (see brar image) but based upon this exam I cannot state this with any degree of certainty. Would recommend a repeat study. CORONARY ARTERY CALCIUM: None THORACIC AORTA: No aneurysm. LUNG: No focal consolidation, nodules or masses. Left basilar atelectasis is seen. PLEURA: No pleural effusion or pneumothorax. MEDIASTINUM: Normal heart size. No pericardial effusion. No hilar or mediastinal lymphadenopathy. No evidence of septal bowing or right heart strain. CHEST WALL/AXILLA: No axillary or internal mammary lymphadenopathy. OSSEOUS STRUCTURES: No acute or suspicious osseous abnormality. VISUALIZED ABDOMEN: The liver is markedly enlarged and low attenuation consistent with hepatic steatosis. The spleen is enlarged at 14 cm in greatest length. The visualized pancreas, adrenal glands and kidneys are unremarkable. CT/CT chest w IV con IMPRESSION: 1. Markedly suboptimal study. No central pulmonary emboli are seen. The presence or absence of pulmonary emboli beyond this cannot be commented upon with any degree of certainty. There is a question of a defect in a right lower lobe vessel. I would highly recommend a repeat study or VQ scan. 2. Incidental note made of enlarged fatty liver and splenomegaly. 3. VTE: indeterminate. Fleischner guidelines were followed. Electronically signed by: Vidal Mcdaniel MD 08/10/2024 08:48 PM EST Dictated By: Vidal Mcdaniel MD Signed By: <Electronically signed by Vidal Mcdaniel MD in OV> 08/10/242047 DD/ 06 TD/TT: 08/10/241941 Soup Person: ERLINDA Assessment & Plan Assessment & Plan (1) Restrictive lung disease: Code(s): J98.4 - Other disorders of lung Category: Medical (2) Morbid obesity: Code(s): E66.01 - Morbid (severe) obesity due to excess calories Category: Medical (3) Physical deconditioning: Code(s): R53.81 - Other malaise Category: Medical (4) Bedbound: Comment: BECAUSE OF MORBID OBESITY AND ALSO WEAKNESS OF LOWER EXTREMITIES SHE REMAINS BED CONFINED. Code(s): Z74.01 - Bed confinement status Category: Medical (5) Daytime somnolence: Code(s): R40.0 - Somnolence Category: Medical (6) Hypoxia: Code(s): R09.02 - Hypoxemia Category: Medical Plan Charline presents for pulmonary evaluation for hypoxia and question on OHS. Recent VBG did not reveal significant CO2 retention. Will send for home sleep study and may possibly need in lab titration study which may be difficult to arrange. Will also send for echo to assess for any cardiac component contributing to hypoxia. Will consider CT in the future. Discussed importance of weight loss as well as working with PT more frequently to be able to maintain an upright position for longer than the reported few minutes per day. All questions were answered and patient is in agreement of plan. Will follow up to review results or sooner if needed. Medications: New tirzepatide (weight loss) (Zepbound) for 4 weeks 2.5 mg subcut QWEEK Coding Level of Care Code Est Pt Level 4 (58008) Complex EM visit Add On G2211 Diagnoses Restrictive lung disease J98.4 Morbid obesity E66.01 Physical deconditioning R53.81 Bedbound Z74.01 Daytime somnolence R40.0 Hypoxia R09.02
[2024-12-26 10:54] VITALS: PULSE 80; O2SAT 97
--- OUTSIDE RECORDS SUMMARY | 2024-12-26 11:52 | XMS_ITS | Data Portability ---
Author Organization [place] - .[facility], [facility] Address [address] [place] [address] Care Team Providers Care Corn Grinder Name Role Phone RICK SCHILLING Neurologist [place] [...] not yet done to test her for Fauquier's disease and for stiff person syndrome although [...] to obtain a consultation at the [facility]. In the interim until she is [...] Medication Orders clonazepam 1 mg tablet [address] [place] [address], [address] [place] [address], [address], 13:59:30 Patient TargetsNo targets recorded. Patient InstructionsNo instructions recorded. Reason for Referral None Reported. 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 Medical Equipment None Reported. Allergies Allergen ID Allergen Name Allergen Category Reaction Reaction Severity Criticality Documentation Date Start Date Code Code System Note Provider Name and Address Organization Details Recorded Time 640082 Product containin g penicilli n (product) medicatio n Not available Not available Not available 09/11/2019 61806 8001 SNOMED Erika Pink [place], [place] - .[facility] 9 13:25:23 Medications Name Sig Start Date [...] 90 mm[Hg] Erika MENENDEZ - .[facility] 09/11/2019 13:27:47 Social History Question Answer Notes LastModified by Organizat ion Details LastModified Time Tobacco Smoking Status Never Smoker SHON Stewart - .[facility] 09/11/2019 13:25:31 RISK LEVEL - Segmentation Level [...] N Osteoporosis/Osteopenia N Anemia N Heart Attack (MT) N Ulcers N Diabetes N Bleeding Disorder [...] SNOMED-CT Code Diagnosis ICD10 Code Diagnosis Note [id number] Rick Schilling MD [facility] [address] [facility],[address] [place] [address] 09/11/2019 13:13:48 09/11/2019 14:02:30 Akathisia 119410697 G25.71 Psychologi c conversion disorder 43103732 F44.9 Health Concerns Section Related Observation LastModified by Organization Detai ls LastModified Time None Recorded Concern Status LastModified by Organization Details LastModified Time None Recorded Advance Directives Directive None Recorded Payers Encounter Date Sequence Insurance Name Policy Number Policy Hunter Covered Member ID Hunter Member ID Guarantor Name 09/11/2019 1 [place]: [facility] [place] - [place] - [place] [employer] (EPO) [id number] Charline Hernandez [id number] Charline Hernandez Notes Date Note Type Note [...] complete. The patient was then hospitalized at [facility] after she had consulted with a autonomic neurologist in [facility] would advise her to go to [...] became completely dysfunctional Rick Schilling MD [address] [place], [address], [facility] - .[facility] 09/11/2019 14:34:35 OBGyn Episode No OBEpisode recorded.
--- OUTSIDE RECORDS SUMMARY | 2024-12-26 11:52 | XMS_ITS | Patient Health Record ---
Author Organization [facility] Address [address] [facility] [place], [place] [id number] Support Name Relationship Address Phone Rita Begum Emergency Contact [address] [place] [address] Charline Hernandez Guarantor Unknown [phone] Allergies Allergen (clinical drug ingredient) Drug/Non Drug [...] Status Risk Notes Problem Vitamin D deficiency (53068776) Vitamin D deficiency, unspecified (E55.9) Active confirmed Problem Anxiety disorder (780979551) Anxiety disorder, unspecified (F41.9) Active confirmed Problem Cramp in lower leg associated with rest (526968252) Sleep related leg cramps (G47.62) Active confirmed Problem Atherosclerosis of renal artery (80639182) Atherosclerosis of renal artery (I70.1) Active confirmed Problem Fibromyalgia (093857137) Fibromyalgia (M79.7) Active confirmed Problem 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
--- OUTSIDE RECORDS SUMMARY | 2024-12-26 11:53 | XMS_ITS | Patient Health Record ---
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 Problem 71255644 Polymyalgia rheumatica syndrome (M35.3) Active confirmed Problem 868673707 Akathisia (G25.71) Active confirmed Plan Of Treatment Pending Test Test Name Order Date Potassium, Serum 05/24/2018 Magnesium, Serum 08/10/2019 Fibrinogen Activity 04/21/2019 Aldolase 04/21/2019 TSH 08/10/2019 TSH 04/21/2019 TSH 05/17/2018 Sedimentation Rate-Westergren 05/17/2018 ELIAS Comprehensive Panel 04/21/2019 ELIAS Comprehensive Panel 08/10/2019 Hepatitis BsAb 08/10/2019 Hepatitis BsAb 04/21/2019 Hepatitis BsAg 04/21/2019 Hepatitis BsAg 08/10/2019 Chem-Comprehensive 05/17/2018 Chem-Comprehensive 12/09/2018 Chem-Comprehensive 04/21/2019 Chem-Comprehensive 08/10/2019 TSH 12/09/2018 HEPATITIS C AB 04/21/2019 HEPATITIS C AB 08/10/2019 CPK Creatine Kinase,Total,Serum 04/21/20 19 *CBC With Differential/Platelet 04/21/20 19 *CBC With Differential/Platelet 12/10/19 19 PT and PTT 04/21/2019 Lyme Ab/Western Blot Reflex 12/09/2018 Lyme Ab/Western Blot Reflex 04/21/2019 Lyme Ab/Western Blot Reflex 08/10/2019 CBC (INCLUDES DIFF/PLT) 08/10/2019 Insurance Providers Payer Name Payer Address Payer Phone Subscriber Number Group Number Insured Name Patient Relationship to Insured Coverage Start Date Coverage End Date [facility] [address] [place], [place] [id number] Charline Osorio Self - patient is the insured Medical (General) History Medical History History ICD Code hx of muscle stiffness and joint stiffne ss of undetermined cause Surgical History Surgery Date(Month/Year) jaw surgery 2003 Hospitalization History Reason Date(Month/Year) stiffness, in hospital several times for this 06/2019
--- OUTSIDE RECORDS SUMMARY | 2024-12-26 11:53 | XMS_ITS | Data Portability ---
Author Organization [place] - [facility] Address [address] [place] [address] Care Team Providers Care Warp Bleaching Vat Tender Name Role Phone AMOR ROSARIO Primary Care Provider Assessment Encounter Date Assessment Date Assessment LastModified by Organization Details LastModified Time 07/04/2022 07/04/2022 INCOMPLETE DO NOT BILL RESCHEDULED [email or web address] Not available 07/04/2022 11:54:31 07/06/2022 07/06/2022 Overview/History : 42 YO F new to and new to provider She is being seen today as her MACHINE RIGGER aides and family are very concerned about patient well being. Addn patient is concerned as well as she has been unable to drink, eat, stand, get to bathroom, dress herself. She has 24/ MACHINE RIGGER care. Was recently in hospital, [facility], and was there for 17 days. Sister states that she was seen by psych while she was there. Was deemed competent by psych according to sister. Patient herself is now very anxious and knows she needs hospital care d/t all of her symptoms. She is anxious to go. In addn lights cause her migraines and she has severe neck and back pain w/ any movement or if people get too close w/o warning her . The patient was scheduled to be seen 2 days ago but wasn't ready that day so she was resheduled for today so she could prepare mentally . She can only drink a few sips of water in a day se states and she cannot eat food. She has had a pill of doxycyline stuck in her throat for 14 days and this has made it so she cannot take her pills. All of this has been ongoing for more than 2-3 weeks. We have been called in to help convince patient to seek hospital level care. Exam: Patient refuses examination or any sort of physical assessment. Addn she is laying in the position in a dark room under a blanket. She will not allow us to turn the lights on for they give her a headache. This makes physical exam impossible as she refuses all aspects. She does allow us to put O2 monitor on her and O2 is 97% and Hr is 125 bpm. PATIENT REFUSES EXAM SHE IS AFRAID IT WILL CAUSE HER INTENSE PAIN DDx considered, but not limited to: VAST AND NEEDS MORE ASSESSMENT; I SUSPECT ALOT PF PSYCH ISSUES IN THIS PATIENT A MAJOR CAUSE OF HER ISSUES Work up/Results: N/a -- > going to hospital needs stat more in depth workup Plan/Discussion: Failure to Thrive: -She is w/ tachycardia which could mean dehydration or a lot of other processes that I cannot evaluate since patient is refusing exam at this time d/t her anxiety. -movie editor and family )as well as pt herself) understands she needs hospital level care and that she is unsafe to stay at home -She is unable to dres herself, get out of bed, she reports intense pain, and she cannot eat or drink. She also poops and pees on a towel on the floor next to her bed. -SIGNIFICANT TIME spent talking patient into taking ambulance to hospital which she eventually fully agrees to and takes. -She is handed off to [facility] who knows her and she gets in the ambulance to go with them -Her college close friend chika is going to meet her at the hopsital to help her anxiety and she is going to [facility] whom I did call expect to I called and updated pt sister as pt would like us to do that and the patient, her movie editor, and pt herself thanks us for our visit today. Pt is on agreement and verbalizes understanding with the above plans at this time. Pt has no other questions or concerns at this time. All questiosn are answered to the best of my ability. Pt thanks us for our visit today. In order to obtain further information and compare any laboratory results/values, I have accessed patient records on the [employer]. This information was pertinent in my medical decision making today. [email or web address] Not available 07/06/2022 18:04:08 Plan of Treatment Reminders Order Date Submit Date Provider Last Modified By Organization Details Last Modified Time Details Appointments None record ed. Lab None record ed. Referral None record ed. Procedures None record ed. Surgeries None record ed. Imaging None record ed. Medication Orders None record ed. Patient TargetsNo targets recorded. Patient InstructionsNo instructions recorded. Reason for Referral None Reported. Medical Equipment None Reported. Allergies Allergen ID Allergen Name Allergen Category Reaction Reaction Severity Criticality Documentation Date Start Date Code Code System Note Provider Name and Address Organization Details Recorded Time 490309 Product containin g penicilli n (product) medicatio n Not available Not available Not available 07/04/2022 95148 8001 SNOMED Ada Shah, WELDER EXPERIMENTAL [address], [place], [address], [place] [facility] 2 10:55:43 320032 Cipro medicatio n Not available Not available Not available 07/04/202279792 3 RxNorm Ada Shah, WELDER EXPERIMENTAL [address], [place], [address], [place] [facility] 2 10:55:47 Medications Name Sig Start Date Stop Date Status Note LastModified by Organization Details LastModified Time gabapentin 600 mg tablet TAKE 1 TABLET BY MOUTH 4 TIMES DAILY active Not Available Not Available No t Available benztropine 0.5 mg tablet TAKE 1 TABLET BY MOUTH TWICE A DAY active Not Available Not Available No t Available trazodone 50 mg tablet SWALLOW HALF A TABLET BY MOUTH 1 HOUR BEFORE BEDTIME.D O NOT DRIVE AFTER USE.DO NOT USE WITH ALCOHOL. 07/04 completed Not Available Not Available Not Available sumatriptan 100 mg tablet TAKE 1 TABLET BY MOUTH ONCE DAILY NEEDED FOR MIGRAINE , MAY REPEAT DOSE AFTER 2 HOURS ,MAX OF 2 TABLETS active Not Available Not Available No t Available sucralfate 100 mg/mL oral suspension TAKE 10 ML BY MOUTH THREE TIMES A DAY BEFORE MEALS AND AT BEDTIME active Not Available Not Available No t Available sucralfate 1 gram tablet TAKE 1 TABLET BY MOUTH FOUR TIMES A DAY ON EMPTY STOMACH FOR 90 DAYS active Not Available Not Available No t Available phenazopyri dine 200 mg tablet TAKE 1 TABLET BY MOUTH EVERY 8 HOURS FOR 2 DAYS active Not Available Not Available No t Available ondansetron HCl 4 mg tablet TAKE 1 TABLET BY MOUTH 3 TIMES A DAY active Not Available Not Available No t Available baclofen 20 mg tablet TAKE 1 TABLET BY MOUTH EVERY DAY 07/04 completed Not Available Not Available Not Available potassium chloride 20 mEq/15 mL oral liquid TAKE 7.5 ML BY MOUTH EVERY DAY active Not Available Not Available No t Available propranolol 10 mg tablet TAKE 1 TABLET BY MOUTH THREE TIMES A DAY active Not Available Not Available No t Available propranolol 40 mg tablet TAKE 1 TABLET BY MOUTH TWICE DAILY DIRECTED active Not Available Not Available No t Available amitriptyli ne 25 mg tablet SWALLOW 1 TABLET AT BEDTIME FOR MIGRAINE AND FOR SLEEP. 07/04 completed Not Available Not Available Not Available magnesium oxide 400 mg (241.3 mg magnesium) tablet TAKE 1 TABLET BY MOUTH TWICE A DAY FOR 14 DAYS active Not Available Not Available No t Available metoclopram tracey 5 mg tablet TAKE 1/2 TO 1 TABLET BY MOUTH TWICE A DAY NEEDED FOR NAUSEA 07/04 completed Not Available Not Available Not Available baclofen 10 mg tablet TAKE 1 TABLET BY MOUTH 4 TIMES DAILY active Not Available Not Available No t Available pantoprazol e 40 mg tablet,kristie yed release TAKE 1 TABLET BY MOUTH EVERY DAY active Not Available Not Available No t Available Banophen 25 mg capsule TAKE 1 CAPSULE BY MOUTH EVERYDAY AT BEDTIME active Not Available Not Available No t Available diazepam 10 mg tablet TAKE 3 TABLETS BY MOUTH NEEDED FOR ANXIETY, MAXIMUM 3 TABLETS A DAY active Not Available Not Available No t Available propranolol 20 mg tablet TAKE 1 TABLET BY MOUTH THREE TIMES A DAY active Not Available Not Available No t Available hydroxyzine HCl 10 mg tablet TAKE 1 TO 2 TABLETS BY MOUTH AT BEDTIME active Not Available Not Available No t Available ondansetron 4 mg disintegrat ing tablet DISSOLVE 1 TABLET IN MOUTH EVERY 4 HOURS NEEDED FOR NAUSEA AND VOMITING FOR 15 DAYS active Not Available Not Available No t Available dicyclomine 10 mg capsule TAKE 1 CAPSULE BY MOUTH FOUR TIMES A DAY active Not Available Not Available No t Available diazepam 5 mg tablet TAKE 1 TABLET NEEDED FOR ANXIETY, MAXIMUM 1 TABLET IN 1 DAY active Not Available Not Available No t Available metoclopram tracey 10 mg tablet 07/04 completed Not Available Not Available Not Available eletriptan 40 mg tablet TAKE 1 TABLET BY MOUTH ONCE DAILY FOR MIGRAINE HEADACHE. MAY REPEAT DOSE ONCE IN 2 HOURS active Not Available Not Available No t Available cyclobenzap rine 5 mg tablet TAKE 2 TABS EVERY MORNING,T MINERVA 1 TAB MID-DAY, & TAKE 2 TABS EVERY EVENING. DO NOT DRIVE. 07/04 completed Not Available Not Available Not Available mirtazapine 7.5 mg tablet TAKE 1 TABLET BY MOUTH ONCE A DAY AT BEDTIME active Not Available Not Available No t Available nitrofurant oin monohydrate /macrocryst als 100 mg capsule TAKE 1 CAPSULE BY MOUTH TWICE DAILY FOR 5 DAYS 07/04 completed Not Available Not Available Not Available duloxetine 20 mg capsule,del ayed release TAKE 1 CAPSULE BY MOUTH ONCE DAILY DIRECTED 07/04 completed Not Available Not Available Not Available duloxetine 30 mg capsule,del ayed release TAKE 1 CAPSULE BY MOUTH EVERY DAY active Not Available Not Available No t Available duloxetine 60 mg capsule,del ayed release TAKE 2 CAPSULES BY MOUTH EVERY DAY active Not Available Not Available No t Available magnesium oxide 500 mg capsule TAKE 1 CAPSULE BY MOUTH EVERY DAY active Not Available Not Available No t Available Savella 25 mg tablet TAKE 1 TABLET BY MOUTH TWICE DAILY 07/04 completed Not Available Not Available Not Available Savella 100 mg tablet TAKE 1 TABLET BY MOUTH TWICE A DAY active Not Available Not Available No t Available TRUEplus Glucose 3.75 gram chewable tablet CHEW 4 TABLETS EVERY DAY NEEDED FOR LOW BLOOD SUGAR active Not Available Not Available No t Available Vitals Date Recorded Respiratory rate Heart rate Body temperature Oxygen saturation Oxygen saturation in Arterial blood by Pulse oximetry Provider Name and Address Organization Details Last Updated DateTime 2 18 /min 115 /min 98.7 [degF] 97 % 97 % Not Available [facility] 2 11:19:11 Social History Question Answer Notes LastModified by Organization D etails LastModified Time Does This Patient Have A PCP? Yes [email or web address] Information not available 07/03/2022 Has The Patient Seen Their PCP In The Past 6 Months? Yes [email or web address] Information not available 07/03/2022 Sex: Unknown Functional Status None recorded. Mental Status None recorded. Family History Nothing Reported. Medical History Condition Response Coronary Artery Disease N Depression N COPD N Hypothyroidism N A-fib N Cancer N Stroke N High Cholesterol N Rheumatoid Arthritis N Kidney Disease N Parkinson's Disease N Diabetes N CHF N Dementia N Asthma N Pulmonary Embolism N Hypertension N Osteoporosis N Gynecological HistoryNo gynecological history recorded. Obstetrics History GPAL:G 0 P 0 0 0 0 Past Encounters Encounter ID Performer Location Encounter Start Date Encounter Closed Date Diagnosis/Indication Diagnosis SNOMED-CT Code Diagnosis ICD10 Code Diagnosis Note [id number] Ada Shah NP [facility] [address] [place] [address] 07/04/2022 10:50:21 07/04/2022 11:34:19 [id number] BRENDA Holder [facility] [address] [place] [address] 07/06/2022 16:25:21 07/07/2022 12:43:22 Tachycardia 8198364 R00.0 Adult fail ure to thrive syndrome 806059806 R62.7 Health Concerns Section Related Observation LastModified by Organization Detai ls LastModified Time None Recorded Concern Status LastModified by Organization Details LastModified Time None Recorded Advance Directives Directive None Recorded Payers Encounter Date Sequence Insurance Name Policy Number Policy Hunter Covered Member ID Hunter Member ID Guarantor Name 07/04/2022 1 [place] [facility] [id number] Charline Rothmaneduarda 07/06/2022 1 [place] [facility] Charline Hernandez [id number] Charline Hernandez Notes Date Note Type Note Provider Name and Address Organization Details Recorded Time 07/04/2022 text/html 42 yo f who presents for possible UTI and wanting blood work. Ada Shah NP [address], [place], [address], [place] [facility] 07/04/2022 11:54:43 07/06/2022 text/html 42 YO F new to [facility] and new to providerShe is being seen today as her MACHINE RIGGER aides and family are very concerned about patient well being. Addn patient is concerned as well as she has been unable to drink, eat, stand, get to bathroom, dress herself. She has 24/7 MACHINE RIGGER care. Was recently in hospital, [facility], and was there for 17 days. Sister states that she was seen by psych while she was there. Was deemed competent by psych according to sister. Patient herself is now very anxious and knows she needs hospital care d/t all of her symptoms. She is anxious to go. In addn lights cause her migraines and she has severe neck and back pain w/ any movement or if people get too close w/o warning her . The patient was scheduled to be seen 2 days ago but wasn't ready that day so she was resheduled for today so she could prepare mentally . She can only drink a few sips of water in a day se states and she cannot eat food. She has had a pill of doxycyline stuck in her throat for 14 days and this has made it so she cannot take her pills. All of this has been ongoing for more than 2-3 weeks. We have been called in to help convince patient to seek hospital level care. BRENDA Bolton [address] [place], [address], [place] [facility] 07/06/2022 18:04:19 OBGyn Episode No OBEpisode recorded.
--- OUTSIDE RECORDS SUMMARY | 2024-12-26 11:53 | XMS_ITS | Patient Health Record ---
Author Organization [facility] Address [address] [place] [address] Care Team Providers Care Officer Captain Name Role Phone ClovistravisBeronica Primary Care Provider Benton denis HANCOCKLINDSEY Unavailable [phone] Allergies Allergen (clinical drug ingredient) Drug/Non Drug [...] Status Risk Notes Problem Gastroesophageal reflux disease (496952213) GERD (K21.9) Active confirmed Plan Of Treatment Pending Test Test Name Order Date CREATININE 02/11/2021 HELICOBACTER PYLORI AG, EIA, STOOL 02/11 Insurance Providers Payer Name Payer Address Payer Phone Subscriber Number Group Number Insured Name Patient Relationship to Insured Coverage Start Date Coverage End Date [facility] [address] [place] [address] [id number] nikita Charline rogers Self - patient is the insured [facility] DIRECT PLAN [address] [place] [phone] [id number] nikita Charline rogers Self - patient is the insured Medical (General) History Medical History History ICD Code 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
== END 2024-12-26 11:58 | disposition home or self-care (01) ==
LOC: HO.HPSW 10:11
PROVIDERS: PCP Pediatrics; Visit Provider Nurse Practitioner Family
DX: J98.4 Other disorders of lung (principal); E66.01 Morbid (severe) obesity due to excess calories; R53.81 Other malaise; Z74.01 Bed confinement status; R40.0 Somnolence; R09.02 Hypoxemia
CPT/HCPCS: 99214; G2211

== ENCOUNTER → 2024-12-26 10:10 | Outpatient (BNVA) | payer OTHER, SELFPAY | PROVIDERS: PCP Pediatrics; Visit Provider Nurse Practitioner Family | DX: J98.4 Other disorders of lung (principal); E66.01 Morbid (severe) obesity due to excess calories; R53.81 Other malaise; R40.0 Somnolence; R09.02 Hypoxemia; Z74.01 Bed confinement status; Z87.891 Personal history of nicotine dependence | CPT/HCPCS: 99212 ==

== ENCOUNTER → 2025-02-01 12:38 | Outpatient (REF) | payer OTHER, SELFPAY ==
--- NOTE | 2025-02-01 12:46 | CA_ITS ---
Transthoracic Echocardiogram Patient (Last, First, Middle): Charline Hernandez, Gender: Female Date of : 1980 Age: 44 Procedure Date: 02/01/2025 Procedure Type: Transthoracic Echocardiogram Location: OP Height: 175.26 cm Weight: 99.79 kg BSA: 2.15 m2 Heart Rate: 63 bpm BP: 125 / 85 mmHg Hand Slitter: WILLOW/NIC Referring MD: Myrtle Combs AIR BRAKE MECHANIC Symptoms: R09.02 - Hypoxemia Study Quality: Technically Difficult/Fair ECG Rhythm: Sinus Conclusions: - The left ventricular systolic function is normal. The calculated ejection fraction is 56% by biplane method. - No obvious valvular pathology seen on this study. Findings Left Ventricle Normal left ventricular cavity size. There is normal left ventricular wall thickness. The left ventricular systolic function is normal. The calculated ejection fraction is 56% by biplane method. There is no evidence of regional wall motion abnormalities. Diastolic function is normal for age. Right Ventricle Normal right ventricular cavity size. There is low normal right ventricular systolic function. Atria Both atria are normal in size. Aortic Valve There is a normal trileaflet aortic valve. There is no aortic valve stenosis. There is no aortic valve regurgitation. Mitral Valve The mitral valve appears normal. There is no mitral valve regurgitation. There is no mitral valve stenosis. Pulmonic Valve The pulmonic valve is likely normal. Tricuspid Valve There is trace tricuspid valve regurgitation. There is no evidence of pulmonary hypertension. Great Vessels The asc aorta is normal in size. Venous The inferior vena cava is normal in size and collapses greater than 50% with inspiration. Pericardium/Pleural There is a trivial pericardial effusion. Prior Study Comparison No prior study available for comparison. Recommendations, Care & Conclusions No obvious valvular pathology seen on this study. Measurements 2D Linear Measurements IVSd: 0.79 0.6-0.9/0.6-1.0 cm LVIDd: 4.45 3.9-5.3/4.2-5.9 cm LVIDd Index: 2.07 2.4-3.2/2.2-3.1 cm/m2 LVIDs: 2.73 2.0-3.6 cm LVPWd: 0.78 0.7-1.1 cm LA Diam: 3.40 2.7-3.8/3.0-4.0 cm LAIDs Index: 1.58 1.5-2.3 cm/m2 LV Mass: 135.36 67-162/88-224 g LV Mass Index: 62.96 43-95/49-115 g/m2 LVOT Diam: 1.80 3.0+(-)1.3 cm 2D Systolic Function EF 4C: 55.50 >55% EF 2C: 55.80 >55% EF BiP: 55.90 >55% Mitral Valve MV Pk E: 0.86 MV PK A: 0.58 MV Decel Time: 299.00 E/A: 1.50 E'Lateral: 8.73 E'Medial: 6.39 E/E' Med: 13.50 E/E' Lat: 9.90 PHT: 88.00 MVA PHT: 2.50 Decel [place]: 2.88 Aortic Valve AoV Pk Kael: 1.81 AoV Mn Kael: 1.23 AoV VTI: 0.33 AoV Pk Grad: 13.00 Aov Mn Grad: 7.00 ZENY Cont.VTI: 2.03 LVOT LVOT Pk Kael: 1.29 LVOT Mn Kael: 0.94 LVOT VTI: 0.27 LVOT Pk Grad: 7.00 LVOT Mn Grad: 4.00 LVOT Diam: 1.80 LVOT Area: 2.54 Diastolic Function MV Pk E: 0.86 MV Pk A: 0.58 E/A: 1.50 E'Medial: 6.39 E/E' Med: 13.50 E' Laterial: 8.73 E/E' Lat: 9.90 Right Ventricle TAPSE (mm): 21.90 TVS' Kael: 8.55 Tricuspid Valve TR Pk Kael: 1.56 TR Pk Grad: 10.00 Great Vessels Aorta Sinus of Valsalva: 3.30 2.0-3.5 cm Ao Asc: 2.90 2.1-3.4 cm Pulmonary Valve PV Pk Kael: 1.05 Peak PV Grad: 4.00 Updated in Other Vendor System with Status of Final Keenan Nieves MD electronically signed on 02/02/2025 3:45:36 PM with status of Final
--- OUTSIDE RECORDS SUMMARY | 2025-02-01 13:44 | XMS_ITS | Data Portability ---
Author Organization [place] - .[facility], [facility] Address [address] [place] [address] Care Team Providers Care Construction And Maintenance Inspector Name Role Phone RICK SCHILLING Neurologist [place] [...] not yet done to test her for Jad's disease and for stiff person syndrome although [...] to obtain a consultation at the [facility]. In the interim until she is [...] Medication Orders clonazepam 1 mg tablet [address] [place] [address], [address] [place] [address], [address], 13:59:30 Patient TargetsNo targets recorded. Patient InstructionsNo instructions recorded. Reason for Referral None Reported. 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 Medical Equipment None Reported. Allergies Allergen ID Allergen Name Allergen Category Reaction Reaction Severity Criticality Documentation Date Start Date Code Code System Note Provider Name and Address Organization Details Recorded Time 576289 Product containin g penicilli n (product) medicatio n Not available Not available Not available 09/11/2019 03204 8001 SNOMED Erika Pink [place], [place] - .[facility] 9 13:25:23 Medications Name Sig Start Date [...] 132 mm[Hg] 90 mm[Hg] Erika MENENDEZ - .[facility] 09/11/2019 13:27:47 Social History Question Answer Notes LastModified by Organizat ion Details LastModified Time Tobacco Smoking Status Never Smoker HSON Stewart - .[facility] 09/11/2019 13:25:31 RISK LEVEL - Segmentation Level [...] N Osteoporosis/Osteopenia N Anemia N Heart Attack ([place]) N Ulcers N Diabetes N Bleeding Disorder [...] SNOMED-CT Code Diagnosis ICD10 Code Diagnosis Note [id number] Rick Schilling MD [facility] [address] [facility] [address] [place] [address] 09/11/2019 13:13:48 09/11/2019 14:02:30 Akathisia 946863269 G25.71 Psychologi c conversion disorder 03587381 F44.9 Health Concerns Section Related Observation LastModified by Organization Detai ls LastModified Time None Recorded Concern Status LastModified by Organization Details LastModified Time None Recorded Advance Directives Directive None Recorded Payers Insurance Date Sequence Insurance Name Policy Number Policy Hunter Covered Member ID Hunter Member ID Guarantor Name 09/12/2019 1 [place] [facility] [place] (EPO) [id number] Charline Hernandez [id number] Charline Hernandez Notes Date Note Type Note [...] had consulted with a autonomic neurologist in [facility] would advise her to go [...] became completely dysfunctional Rick Schilling MD [address] [place], [address], [facility] - .[facility] 09/11/2019 14:34:35 OBGyn Episode No OBEpisode recorded.
--- OUTSIDE RECORDS SUMMARY | 2025-02-01 13:44 | XMS_ITS | Patient Health Record ---
Author Organization [facility] Address [address] [place], [place] [id number] Support Name Relationship Address Phone Rita Begum Emergency Contact [address] [place] [address] Charline Hernandez Guarantor Unknown [phone] Allergies Allergen (clinical drug ingredient) Drug/Non Drug [...] Status Risk Notes Problem Vitamin D deficiency (85304689) Vitamin D deficiency, unspecified (E55.9) Active confirmed Problem Anxiety disorder (216939877) Anxiety disorder, unspecified (F41.9) Active confirmed Problem Cramp in lower leg associated with rest (081346925) Sleep related leg cramps (G47.62) Active confirmed Problem Atherosclerosis of renal artery (67186774) Atherosclerosis of renal artery (I70.1) Active confirmed Problem Fibromyalgia (182392192) Fibromyalgia (M79.7) Active confirmed Problem 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
--- OUTSIDE RECORDS SUMMARY | 2025-02-01 13:45 | XMS_ITS | Patient Health Record ---
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 [address] [place], [place] [id number] Charline Osorio Self - patient is the insured Medical (General) History Medical History History ICD Code hx of muscle stiffness and joint stiffne ss of undetermined cause Surgical History Surgery Date(Month/Year) jaw surgery 2003 Hospitalization History Reason Date(Month/Year) stiffness, in hospital several times for this 06/2019
--- OUTSIDE RECORDS SUMMARY | 2025-02-01 13:45 | XMS_ITS | Patient Health Record ---
Author Organization [facility] Network Address [address] [place] [address] Care Team Providers Care Insulation Nozzleman Name Role Phone ClovistravisBeronica Primary Care Provider Benton denis HANCOCKLINDSEY Unavailable [phone] Allergies Allergen (clinical drug ingredient) Drug/Non Drug [...] Problem Status W/U Status Risk Notes Problem GERD (K21.9) Active confirmed Plan Of Treatment Pending Test Test Name Order Date CREATININE 02/11/2021 [employer], EIA, STOOL 02/11 Insurance Providers Payer Name Payer Address Payer Phone Subscriber Number Group Number Insured Name Patient Relationship to Insured Coverage Start Date Coverage End Date [facility] [address] [place] [address] [id number] Charline Osorio Self - patient is the insured [facility] [employer] [address] [place] [address] [phone] [id number] Charline Osoroi Self - patient is the insured Medical (General) History Medical History History ICD Code 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
== END ==
LOC: HO.CARD 12:38
PROVIDERS: PCP Pediatrics; Visit Provider Nurse Practitioner Family
DX: R09.02 Hypoxemia (principal)
CPT/HCPCS: 93306

== ENCOUNTER → 2025-02-01 12:46 | Outpatient (BNV) | payer OTHER, SELFPAY | PROVIDERS: PCP Pediatrics; Visit Provider Internal Medicine | DX: J96.91 Respiratory failure, unspecified with hypoxia (principal) | CPT/HCPCS: 93306 ==

== ENCOUNTER 2025-02-06 10:16 | Outpatient (AMB) | payer OTHER, SELFPAY ==
--- NOTE | 2025-02-06 10:41 | MHC.OFFVIS ---
Vital Signs 02/06/25 10:42 Height 5 ft 9 in BMI Reason not done Patient refused/unable BP 96/54 L Blood Pressure Location Rt brachial Position Supine Pulse 65 Pulse Source Pulse Oximeter Pulse Oximetry (%) 93 Oxygen Delivery Method Nasal Cannula Oxygen Flow Rate 2 Intake Visit Reasons: Dyspnea Allergies Penicillins Allergy (Verified 02/06/25 10:45) Swelling HPI HPI Dyspnea: Details: Charline is a pleasant 44 year old female, former 25 pack year smoker, with underlying HTN, DMII, peripheral neuropathy, migraine, GERD, morbid obesity, somatoform disorder, PTSD, borderline personality, and chronically bed-bound came in by ambulance. Reviewed prior records which document nonambulatory status back to 2021 in which she had a prolonged hospital stay at [facility]. Per report patient has been bedbound for many weeks secondary to weakness from gastritis causing her to have decreased PO intake and failure to thrive. At that time diagnosed with underlying somatoform disorder, previously under the care of neuropsychiatry. She has multiple MENTAL HEALTH ASSOCIATE who provide 24 hour care. Today she arrives via stretcher and accompanied by MENTAL HEALTH ASSOCIATE, Natalie. She was initially referred by PCP for pulmonary evaluation and had established with Dr. Uribe however requested female provider. He had sent for venous blood gases which did not reveal significant CO2 retention. Unknown weight, as patient has not been weighed in quite some time. Appears morbidly obese. Previously on Ozempic, now on Zepbound with suboptimal effect. She was seen inpatient at [facility] and displayed symptoms suggestive of OSBALDO/OHS. At the last visit, sent for in lab PSG which is scheduled for 03/20/25. She also had new onset hypoxia on July 2024 admission and has been using 2-3L supplemental oxygen continuously except 1-2 hours per day. She notes checking oxygen saturation at home, MENTAL HEALTH ASSOCIATE noted since the last visit, lowest 69% slow to recover otherwise lowest in mid 80s. When this occurs MENTAL HEALTH ASSOCIATE increases supplemental oxygen to 3L titrating to <92% and describes associated visual hallucinations however patient on multiple medications with this potential side effect, not under the care of psychiatry at this time. She notes this occurs intermittently with minimal movement and at rest. CTA 08/20 negative for CTA however recommendations made for repeat CTA due to suboptimal study, which we agreed upon today as patient reports ongoing pink tinged sputum, denies wheezing, dyspnea or chest tightness/pain. She has been bedbound, mostly in a supine/lateral position rarely sitting upright with contracted BLE. She does have home PT once per week which she pays out of pocket, continues to await insurance covered PT. Today she presents to review echo, as there was question of potential pulmonary hypertension contributing to hypoxia. [facility] Medical History Hypoventilation associated with obesity syndrome Restrictive lung disease Somatoform disorder Migraines Depression Borderline personality disorder DM2 (diabetes mellitus, type 2) PTSD (post-traumatic stress disorder) Bedbound Social History Household Members: None Housing: House Do you presently have visiting nurse or other home services: Yes (supervisor reclamation services 19/04.) Patient Tobacco Use Status: Former Tobacco user Tobacco use type: Cigarette Cigarette Packs Per Day: 1.0 Years Smoked: 25 years Second Hand Smoke Exposure: No service: No Review of Systems Const Denies chills, Reports daytime sleepiness, Denies excessive sweating, Reports fatigue, Denies fever(s), Reports lethargy, Denies night sweats and Reports weakness Eyes Denies dry eyes, Denies irritation and Denies itchy eyes ENT Reports Normal hearing present, Denies nasal congestion, Denies nasal discharge, Denies post nasal drip and Denies sore throat Card Denies chest pain, Denies chest pain at rest, Denies chest pain with activity, Denies claudication, Denies leg edema, Denies dyspnea, Denies dyspnea on exertion, Denies orthopnea and Denies paroxysmal nocturnal dyspnea Resp Denies chest congestion, Denies excessive phlegm production, Denies pain on inspiration, Denies pain with cough, Denies dyspnea, Denies dyspnea on exertion, Denies stridor and Denies wheezing Musc Denies myalgias Neuro Reports Normal hearing present and Reports weakness Endo Denies excessive sweating and Reports fatigue Freddie/Lymph Denies lymphadenopathy Aller/Immun Denies itchy eyes, Denies seasonal rhinorrhea and Denies wheezing Physical Exam Vital Signs: Last Vital Signs Pulse 65 02/06/25 10:42 BP 96/54 L 02/06/25 10:42 Pulse Ox 93 02/06/25 10:42 Oxygen Delivery Method Nasal Cannula 02/06/25 10:42 Oxygen Flow Rate 2 02/06/25 10:42 Const Other: confined to stretcher in lateral position, obese abdomen General: cooperative, no acute distress and alert Nutritional Appearance: obese Orientation/consciousness: patient oriented x3 Limitations: physical limitations HEENT Head: Yes normal to inspection, Yes normocephalic and Yes atraumatic Ears: hearing grossly normal bilaterally and external ears normal Eyes Eyelids: Yes eyelids normal Sclerae: sclerae normal EOM: EOMs intact bilaterally Chest Chest palpation & inspection: normal inspection of the chest Resp Effort & Inspection: normal respiratory effort, able to speak in complete sentences, no audible wheezes, no cough, no stridor, not tachypneic, no tripod positioning and no use of accessory muscles Auscultation: diminished lung sounds Cardio Jugular venous distension: no JVD Rate: regular rate Rhythm: regular rhythm Skin Other: warm, dry General skin exam: no rashes or lesions noted Neuro General: patient oriented x3 Cranial nerves: Yes Normal hearing present Cognition (Neuro): normal cognition Extrem Other: contracted BLE General: Yes normal to inspection, Yes no clubbing, cyanosis or edema and Yes no pedal edema Psych Appearance: grossly normal and well kempt Speech and movement: Normal speech and movement present and Clear speech present Affect: normal affect Attitude: cooperative Thought process: Normal thought process present Thought content: Normal thought content present Assessment & Plan Assessment & Plan (1) Hypoxia: Code(s): R09.02 - Hypoxemia Category: Medical (2) Restrictive lung disease: Code(s): J98.4 - Other disorders of lung Category: Medical (3) Morbid obesity: Code(s): E66.01 - Morbid (severe) obesity due to excess calories Category: Medical (4) Physical deconditioning: Code(s): R53.81 - Other malaise Category: Medical (5) Bedbound: Comment: BECAUSE OF MORBID OBESITY AND ALSO WEAKNESS OF LOWER EXTREMITIES SHE REMAINS BED CONFINED. Code(s): Z74.01 - Bed confinement status Category: Medical (6) Daytime somnolence: Code(s): R40.0 - Somnolence Category: Medical Plan Charline and MENTAL HEALTH ASSOCIATE report significant fluctuations in oxygen saturation despite 2-3L supplemental oxygen and with minimal exertion. Will send for CTA to rule out PE. Discussed signs/symptoms that warrant emergent evaluation. Reviewed echo which revealed mild decrease in LVEF 55% with trace pericardial effusion. Will send for cardiology for further evaluation. Patient has upcoming in lab PSG scheduled next month to assess for OSBALDO. Discussed importance of weight loss as well as working with PT more frequently to be able to maintain an upright position for longer than the reported few minutes per day. All questions were answered and patient is in agreement of plan. Will follow up to review results or sooner if needed. Orders: Orders CT angio chest PE protocol Today R09.02 - Hypoxemia Referrals Cardiology Referral I31.39 - Other pericardial effusion (noninflammatory) Coding Level of Care Code Est Pt Level 4 (46022) Complex EM visit Add On G2211 Diagnoses Hypoxia R09.02 Restrictive lung disease J98.4 Morbid obesity E66.01 Physical deconditioning R53.81 Bedbound Z74.01 Daytime somnolence R40.0
[2025-02-06 10:42] VITALS: BP 96/54; PULSE 65; O2SAT 93
--- OUTSIDE RECORDS SUMMARY | 2025-02-06 11:22 | XMS_ITS | Data Portability ---
Author Organization [place] [facility] Address [address] [place] [address] Care Team Providers Care Tariff Compiling Clerk Name Role Phone AMOR ROSARIO Primary Care Provider Assessment Encounter Date Assessment Date Assessment LastModified by Organization Details LastModified Time 07/04/2022 07/04/2022 INCOMPLETE DO NOT BILL RESCHEDULED [email or web address] Not available 07/04/2022 11:54:31 07/06/2022 07/06/2022 Overview/History : 42 YO F new to and new to provider She is being seen today as her HYDRAULICS ENGINEER aides and family are very concerned about patient well being. Addn patient is concerned as well as she has been unable to drink, eat, stand, get to bathroom, dress herself. She has 24/ HYDRAULICS ENGINEER care. Was [place] [facility] was [place] 17 days. Sister [...] exam at this time d/t her anxiety. -patient services clerk and family )as well as pt herself) [...] and takes. -She is handed off to [facility] who knows her and she gets in the ambulance to go with them -Her college close friend chika is going to meet her at the hopsital to help her anxiety and she is going to [facility] whom I did call expect to I called and updated pt sister as pt would like us to do that and the patient, her patient services clerk, and pt herself thanks us for our [...] I have accessed patient records on the [email or web address]. This information was pertinent in my medical decision making today. [email or web address] Not available 07/06/2022 18:04:08 Plan of Treatment [...] Name and Address Organization Details Recorded Time [id number] Product containin g penicilli n (product) medicatio n Not available Not available Not available 07/04/2022 [id number] SNOMED Ada Shah, ABSTRACT MANAGER [address], [place], [address], [place] [facility] 10:55:43 [id number] Cipro medicatio n Not available Not available Not available 07/04/202254252 3 RxNorm Ada Shah, ABSTRACT MANAGER [address], [place], [address], [place] [facility] [...] History Nothing Reported. Medical History Condition Response Diabetes N Coronary Artery Disease N CHF N Parkinson's Disease N Cancer N Stroke N Dementia N Hypothyroidism N COPD N Asthma N Depression N High Cholesterol N Rheumatoid Arthritis N Pulmonary Embolism N Hypertension N A-fib N Osteoporosis N Kidney Disease N Gynecological HistoryNo gynecological history recorded. Obstetrics History GPAL:G 0 P 0 0 0 0 Past Encounters Encounter ID Performer Location Encounter Start Date Encounter Closed Date Diagnosis/Indication Diagnosis SNOMED-CT Code Diagnosis ICD10 Code Diagnosis Note [id number] Ada Shah NP [facility] [address] [place] [address] 07/04/2022 10:50:21 07/04/2022 11:34:19 [id number] BRENDA Holder [facility] [address] [place] [address] 07/06/2022 16:25:21 07/07/2022 12:43:22 [facility] 3114137 R00.0 Adult fail ure to thrive syndrome 463686811 R62.7 Health Concerns Section Related Observation LastModified by Organization Detai ls LastModified Time None Recorded Concern Status LastModified by Organization Details LastModified Time None Recorded Advance Directives Directive None Recorded Payers Insurance Date Sequence Insurance Name Policy Number Policy Hunter Covered Member ID Hunter Member ID Guarantor Name 07/10/2022 1 *SELF PAY* Charline Hernandez NEED [facility] ID Charline Rothmaneduarda 07/07/2022 1 [place] Charline Rothmaneduarda [id number] Charline Rothmaneduarda 07/03/2022 1 *SELF PAY* Charline Rothmaneduarda [id number] Charline Rothmaneduarda 07/21/2022 1 [place] Charline Rothmaneduarda [id number] Charline Rothmaneduarda 09/09/2022 1 [place] Charline Rothmaneduarda [id number] Charline Mary 07/22/2022 1 [facility] (MEDICAID REPLACEMENT - HMO) [id number] Charline Rothmaneduarda [id number] Charline Hernandez 07/07/2022 1 [facility] (MEDICAID REPLACEMENT - HMO) [id number] Charline Hernandez [id number] Charline Hernandez Notes Date Note Type Note Provider Name and Address Organization Details Recorded Time 07/04/2022 text/html 42 yo f who presents for possible UTI and wanting blood work. Ada Shah NP [address] [place], [address], [place] [facility] 07/04/2022 11:54:43 07/06/2022 text/html 42 YO F new to D H and new to providerShe is being seen today as her HYDRAULICS ENGINEER aides and family are very concerned about patient well being. Addn patient is concerned as well as she has been unable to drink, eat, stand, get to bathroom, dress herself. She has 24/7 HYDRAULICS ENGINEER care. Was recently in [place], [facility], and was there for 17 days. Sister [...] patient to seek hospital level care. BRENDA Bolton, [place], [address], [place] [facility] 07/06/2022 18:04:19 OBGyn Episode No OBEpisode recorded.
--- OUTSIDE RECORDS SUMMARY | 2025-02-06 11:22 | XMS_ITS | Patient Health Record ---
Author Organization [facility] Network Address [address] [facility] Floor 1 [place] [address] Care Team Providers Care Social Human Services Assistants Name Role Phone ClovistravisBeronica Primary Care Provider Benton denis HANCOCKLINDSEY Unavailable [phone] Allergies Allergen (clinical drug ingredient) Drug/Non Drug [...] Insured Coverage Start Date Coverage End Date [facility] [address] [place] [address] [id number] Charline Osorio Self - patient is the insured [facility] DIRECT PLAN [address] 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
--- OUTSIDE RECORDS SUMMARY | 2025-02-06 11:22 | XMS_ITS | Patient Health Record ---
Author Organization [facility] Address [address] [facility] [address] [place], [place] [id number] Support Name Relationship Address Phone Rita Begum Emergency Contact [address] [place] [address] Charline Hernandez Guarantor Unknown [phone] Allergies Allergen (clinical drug ingredient) Drug/Non Drug [...] Status Risk Notes Problem Vitamin D deficiency (39547833) Vitamin D deficiency, unspecified (E55.9) Active confirmed Problem Anxiety disorder (052259205) Anxiety disorder, unspecified (F41.9) Active confirmed Problem Cramp in lower leg associated with rest (760121286) Sleep related leg cramps (G47.62) Active confirmed Problem Atherosclerosis of renal artery (I70.1) Active confirmed Problem Fibromyalgia (614134008) Fibromyalgia (M79.7) Active confirmed Problem Sara-Danlos syndrome (disorder) (359050709) Sara-Danlos syndrome, 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
--- OUTSIDE RECORDS SUMMARY | 2025-02-06 11:22 | XMS_ITS | Patient Health Record ---
Author Organization 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 [address] [place], [place] [id number] Charline Osorio Self - patient is the insured Medical (General) History Medical History History ICD Code hx of muscle stiffness and joint stiffne ss of undetermined cause Surgical History Surgery Date(Month/Year) jaw surgery 2003 Hospitalization History Reason Date(Month/Year) stiffness, in hospital several times for this 06/2019
== END 2025-02-06 11:39 | disposition home or self-care (01) ==
LOC: HO.HPSW 10:17
PROVIDERS: PCP Pediatrics; Visit Provider Nurse Practitioner Family
DX: R09.02 Hypoxemia (principal); J98.4 Other disorders of lung; E66.01 Morbid (severe) obesity due to excess calories; R53.81 Other malaise; Z74.01 Bed confinement status; R40.0 Somnolence
CPT/HCPCS: 99214; G2211

== ENCOUNTER → 2025-02-06 10:16 | Outpatient (BNVA) | payer OTHER, SELFPAY | PROVIDERS: PCP Pediatrics; Visit Provider Nurse Practitioner Family | DX: J98.4 Other disorders of lung (principal); R09.02 Hypoxemia; R53.81 Other malaise; R40.0 Somnolence; E66.01 Morbid (severe) obesity due to excess calories; Z74.01 Bed confinement status | CPT/HCPCS: 99212 ==

== ENCOUNTER 2025-03-08 14:56 | Outpatient (REF) | payer OTHER, SELFPAY ==
--- NOTE | ~2025-03-08 | CT_ITS ---
CLINICAL HISTORY: R09.02 - Hypoxemia pt is paraplegic and contracted. Pt could not raise her arms no r hold her breath. The HU trigger could not read acurately due to artifact. CT angiography chest with contrast. 3D Postprocessing. Comparison: None Findings: Nondiagnostic study. Pulmonary arteries are not adequately opacified due to technical issues. Patient is unable to raise her arm or hold her breath and contrast triggering can not performed. Pulmonary artery is normal in caliber. Normal size heart. No pericardial effusion. Thoracic aorta is normal in caliber. The visualized thyroid and mediastinum are unremarkable. Subsegmental atelectasis in the left lower lobe. Lungs are otherwise clear. No pleural effusion or pneumothorax. Hepatic steatosis. Splenomegaly measuring 15.3 cm in the AP dimension. The bones are intact. IMPRESSION: 1. Nondiagnostic pulmonary CTA due to technical factors and inadequate contrast opacification of pulmonary arteries. 2. Subsegmental atelectasis in the left lower lobe otherwise no acute thoracic findings. 3. Splenomegaly. This document has been electronically signed by: Neva Salazar MD on 03/08/2025 18:05:57
[2025-03-08] MEDS: iohexoL 350 MG/ML 100 ML INFUS..BTL IV (17:02)
--- OUTSIDE RECORDS SUMMARY | 2025-03-08 17:37 | XMS_ITS | Patient Health Record ---
Author Organization [facility] Address [address] [facility] [address] [place], [place] [phone] Support Name Relationship Address Phone Rita Begum Emergency Contact [address] [place] [address] Charline Hernandez Guarantor Unknown Allergies Allergen (clinical [...] Status Risk Notes Problem Vitamin D deficiency (73201916) Vitamin D deficiency, unspecified (E55.9) Active confirmed Problem Anxiety disorder (344471580) Anxiety disorder, unspecified (F41.9) Active confirmed Problem Cramp in lower leg associated with rest (515888353) Sleep related leg cramps (G47.62) Active confirmed Problem Atherosclerosis of renal artery (02619422) Atherosclerosis of renal artery (I70.1) Active confirmed Problem Fibromyalgia (168835158) Fibromyalgia (M79.7) Active confirmed Problem Sara-Danlos syndrome (disorder) (710040495) Sara-Danlos syndrome, 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
== END 2025-03-08 14:57 | disposition home or self-care (01) ==
LOC: HO.CT 14:56
PROVIDERS: PCP Pediatrics; Visit Provider Nurse Practitioner Family
DX: R09.02 Hypoxemia (principal)
CPT/HCPCS: 71275; Q9967

== ENCOUNTER → 2025-03-08 15:02 | Outpatient (BNV) | payer OTHER, SELFPAY | PROVIDERS: PCP Pediatrics; Visit Provider Radiology Diagnostic Radiology | DX: J98.11 Atelectasis (principal) | CPT/HCPCS: 71275 ==

== ENCOUNTER 2025-03-12 14:24 | Emergency (ER) | payer OTHER, SELFPAY ==
[2025-03-12 14:34] VITALS: BP 109/61; BP 86/47; PULSE 63; PULSE 64; RESP 18; TEMP 36.7; O2SAT 97; BMI 37.8
[2025-03-12 14:59] LABS: MANUAL DIFF FLAG NO
[2025-03-12 15:06] LABS: Basophils Absolute Auto 0.1 X10*3/uL (0.0-0.2); Basophils Percent Auto 0.8 % (0-2); Eosinophils Absolute Auto 0.3 X10*3/uL (0.0-0.4); Eosinophils Percent Auto 3.6 % (0-4); Hematocrit 34.7 % (37.0-47.0); Hemoglobin 11.6 g/dl (12.0-16.0); Imm Gran Abs Auto 0.04 X10*3/uL (0.00-0.03); Imm Gran Pct Auto 0.5 % (0.0-0.4); Lymphocytes Absolute Auto 1.9 X10*3/uL (1.2-4.9); Lymphocytes Percent Auto 21.1 % (20-40); Mean Corpuscular HGB Conc 33.4 g/dl (31.0-35.0); Mean Corpuscular Hemoglobin 30.1 pg (27.0-33.0); Mean Corpuscular Volume 90.1 fL (80.0-98.0); Mean Platelet Volume 11.4 fL (9.4-12.3); Monocytes Absolute Auto 0.5 X10*3/uL (0.1-1.2); Monocytes Percent Auto 6.1 % (2-11); Neutrophils Percent Auto 67.9 % (45-73); Platelet Count 218 X10*3/uL (160-400); Red Blood Count 3.85 X10*6/uL (4.20-5.50); White Blood Count 8.9 X10*3/uL (4.8-10.8)
--- NOTE | 2025-03-12 15:14 | ED_ITS ---
HPI - General Adult General Chief complaint: General Medical Stated complaint: Pain w/uination,bed bound per ems Time Seen by Provider: 03/12/25 15:14 Source: patient Limitations: physical limitation (bed bound) History of Present Illness HPI narrative: 44-year-old female with a PMH significant for?pericardial effusion, restrictive lung disease, HTN, asn-xsrwpvy-ipgnssgou type 2 diabetes, peripheral neuropathy, migraines, GERD, morbid obesity, somatoform disorder, PTSD, borderline personality disorder, and chronically bed-bound who presents to the ED with concerns for retained tampon, suprapubic pain and burning on urination x 3 days. Denies fevers, chills, N/V/D. Per patient and SUPERINTENDENT OPERATIONS DIVISION at the bedside, pt. had tampon inserted last by staff, however they are not aware of the tampon ever being removed. They report having a recent exam for this at [facility] ED without findings. Patient states she would like more than just a pelvic exam to ensure there is no retained tampon, she is concerned for toxic shock syndrome. Related Data Home Medications ?Medication ?Instructions ?Recorded ?Confirmed baclofen 20 mg tablet 20 mg PO QID 06/14/24 12/26/24 bupropion HCl 300 mg 24 hr tablet, 300 mg PO DAILY 06/14/24 12/26/24 extended release calcium carbonate 600 mg PO BID PRN indigestion 06/14/24 12/26/24 clonazepam 0.5 mg tablet 0.5 mg PO BID 06/14/24 12/26/24 duloxetine 20 mg capsule,delayed 20 mg PO BID 06/14/24 12/26/24 release ergocalciferol (vitamin D2) 1,250 1,250 mcg PO MO 06/14/24 12/26/24 mcg (50,000 unit) capsule gabapentin 600 mg tablet 600 mg PO QID 06/14/24 12/26/24 magnesium citrate 83.3 mg chewable 83.3 mg PO DAILY 06/14/24 12/26/24 tablet metformin 500 mg tablet,extended 500 mg PO BID 06/14/24 12/26/24 release 24 hr multivitamin with minerals-folic 2 tab PO BEDTIME 06/14/24 12/26/24 acid 200 mcg chewable tablet (Multivitamin Gummies) olanzapine 20 mg tablet 20 mg PO BEDTIME 06/14/24 12/26/24 propranolol 20 mg tablet 10 mg PO TID 06/14/24 12/26/24 sumatriptan succinate 100 mg tablet 100 mg PO NEEDED migraine 06/14/24 12/26/24 tirzepatide (weight loss) 2.5 2.5 mg subcut QWEEK 12/26/24 12/26/24 mg/0.5 mL subcutaneous pen injector (Zepbound) Previous Rx's ?Medication ?Instructions ?Recorded nitrofurantoin 100 mg PO Q12H 5 days #10 caps 03/12/25 monohydrate/macrocrystals 100 mg capsule (Macrobid) phenazopyridine 200 mg tablet 200 mg PO TID PRN Burning with 03/12/25 (Pyridium) urination 3 days #9 tabs Allergies Allergy/AdvReac Type Severity Reaction Status Date / Time ciprofloxacin Allergy Swelling Verified 03/12/25 14:38 Penicillins Allergy Swelling Verified 03/12/25 14:37 Review of Systems 2 Review of Systems: Yes all other systems are reviewed and are negative [facility] Past Medical History [facility] Narrative: Social history: Denies smoking, alcohol use, drug use. 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.) Patient Tobacco Use Status: Former Tobacco user Tobacco use type: Cigarette Cigarette Packs Per Day: 1.0 Years Smoked: 25 years Second Hand Smoke Exposure: No Advance Directives: Yes Advance Directives Information Provided: Yes Advance Directives on File: No service: No Physical Exam ED Vital Signs: Vital Signs - 24 hr 03/12/25 14:34 Temperature 98.0 F Pulse Rate 63 Respiratory Rate 18 Blood Pressure 109/61 Pulse Oximetry 97 Oxygen Delivery Method Nasal Cannula BMI result Body Mass Index 37.8 Exam: General: Awake, alert in no distress Head: Normocephalic, atraumatic EENT: PERRL, Lids normal, sclera normal, conjunctiva normal, nose normal , ears normal, throat without erythema or exudates Neck: Supple, no adenopathy Lung: breath sounds symmetric, no wheezing, rales or rhonchi Chest: symmetric movement, nontender Heart: regular rate and rhythm, normal S1, S2 no murmurs or rubs Abdomen: soft, mild tenderness to deep palpation LLQ, nondistended, normal bowel sounds Pelvic: External: No lesions, normal Speculum: Cervix normal, normal cervical os, normal vaginal discharge, no retained tampon Bimanual: No cervical motion tenderness, no foreign bodies, no uterine tenderness, no adnexal tenderness Back: no vertebral tenderness, no CVAT Extremities: no deformities, moves all extremities symmetrically Neuro: Awake, alert, oriented, normal speech, cranial nerves intact, moves all extremities symmetrically Psych: Pleasant, cooperative Medical Decision Making Medical Decision Making MDM Narrative: 44-year-old female with a PMH significant for?pericardial effusion, restrictive lung disease, HTN, hhi-ackduhm-mtdphqitf type 2 diabetes, peripheral neuropathy, migraines, GERD, morbid obesity, somatoform disorder, PTSD, borderline personality disorder, and chronically bed-bound who presents to the ED with concerns for retained tampon, suprapubic pain and burning on urination x 3 days. Denies fevers, chills, N/V/D. Per patient and [employer]PERINTENDENT OPERATIONS DIVISION at the bedside, pt. had tampon inserted last by staff, however they are not aware of the tampon ever being removed. They report having a recent exam for this at [facility] ED without findings. Patient states she would like more than just a pelvic exam to ensure there is no retained tampon, she is concerned for toxic shock syndrome. Patient is afebrile, vital signs normal. Distended abdomen with slight tenderness to deep palpation at LLQ, no CVA tenderness appreciated. Pelvic exam was unremarkable no retained tampon. Differential diagnosis: ?Includes but is not limited to retained tampon, bacterial vaginosis, cystitis Course: 17:08 My independent interpretation of labs are as follows: WBC 8.9, HGB 11.6, HCT 34.7. Carbon dioxide slightly elevated at 30, AST 44, ALT 41. UA positive for blood, nitrates, leukocyte esterase, microscopic shows RBCs >20, WBCs 20-50, squamous cells 6-10, bacteria 4+. Given patient's presentation, physical exam, laboratory findings, urinalysis and micro analysis patient has a urinary tract infection. Treated with Macrobid 100 mg, Pyridium 200 mg p.o.. Prescribed Macrobid 100 mg b.i.d. x5 days, Pyridium 200 mg TID PRN x3 days for dysuria. Given printed and verbal instructions for discharge home. Admission/Observation Consideration of admission/observation: Escalation of care including admission/observation considered (Yes) Lab Data [facility] Lab Attestation statement: I reviewed the patient's lab results. 03/12/25 14:56 03/12/25 14:56 Labs: Lab Results 03/12/25 Range/Units 14:56 WBC 8.9 (4.8-10.8) X10*3/uL RBC 3.85 L (4.20-5.50) X10*6/uL Hgb 11.6 L (12.0-16.0) g/dl Hct 34.7 L (37.0-47.0) % MCV 90.1 (80.0-98.0) fL MCH 30.1 (27.0-33.0) pg MCHC 33.4 (31.0-35.0) g/dl RDW 14.0 (11.0-16.0) % Plt Count 218 (160-400) X10*3/uL MPV 11.4 (9.4-12.3) fL Immature Gran % (Auto) 0.5 H (0.0-0.4) % Neut % (Auto) 67.9 (45-73) % Lymph % (Auto) 21.1 (20-40) % Mills % (Auto) 6.1 (2-11) % Eos % (Auto) 3.6 (0-4) % Baso % (Auto) 0.8 (0-2) % Lymph # (Auto) 1.9 (1.2-4.9) X10*3/uL Mills # (Auto) 0.5 (0.1-1.2) X10*3/uL Eos # (Auto) 0.3 (0.0-0.4) X10*3/uL Baso # (Auto) 0.1 (0.0-0.2) X10*3/uL Abs Immat Gran (auto) 0.04 H (0.00-0.03) X10*3/uL Absolute Neuts (auto) 6.0 (2.0-8.3) x10*3/uL Absolute Nucleated RBC 0.000 (0.0-0.012) X10*3/uL Nucleated RBC % (auto) 0.0 (0.0-0.2) /100WBC Sodium 141 (135-145) mmol/L Potassium 4.6 D (3.3-5.1) mmol/L Chloride 102 (96-108) mmol/L Carbon Dioxide 30 H (22-29) mmol/L Anion Gap 14 (12-20) BUN 14 (9-16) mg/dL Creatinine 0.86 (0.5-1.4) mg/dL Estim Creat Clear Calc 84.7 Estimated GFR > 60 Random Glucose 98 (60-115) mg/dL Calcium 10.1 D (8.4-10.2) mg/dL Total Bilirubin 0.3 (0.0-1.0) mg/dL AST 44 H (5-31) U/L ALT 41 H (0-31) U/L Alkaline Phosphatase 117 (39-117) U/L Total Protein 7.4 (6.5-8.0) g/dL Albumin 4.4 (3.5-5.0) g/dL Independent Historian Clinical information obtained from an independent historian. History obtained from or confirmed by: Other ([employer]PER[employer]ENT [employer]PERATIONS DIV[employer]) External Record Review External record reviewed: Inpatient record Prescription Management I considered prescription management with: Pain Medication (Pyridium) and Antibiotic (Macrobid) Chronic Conditions Patient?s care impacted by: Diabetes and Hypertension Discharge Plan Discharge Clinical Impression: UTI (urinary tract infection) Qualifiers: Urinary tract infection type: acute cystitis Hematuria presence: with hematuria Qualified Code(s): N30.01 - Acute cystitis with hematuria Patient Disposition: Home, Self-Care Instructions: Urinary Tract Infection in Women (DC) Additional Instructions: Your blood work was unremarkable today. Your urine was consistent for an infection. I prescribed an antibiotic, Macrobid 100 mg twice daily for 5 days for this infection. Make sure to finish the entire course of the antibiotics. I also prescribed Pyridium 200 mg 3 times daily as needed for painful urination. You had a speculum pelvic exam today and there was no retained tampon found. I encouraged the use of menstrual pads instead of tampons. Follow-up with your doctor in 2 days. Please return to the emergency department if your symptoms get worse or if you develop any symptoms that are concerning to you. Prescriptions: New nitrofurantoin monohyd/m-cryst [Macrobid] 100 mg capsule 100 mg PO Q12H 5 Days Qty: 10 0RF Rx Instructions: must administer with a meal/food phenazopyridine [Pyridium] 200 mg tablet 200 mg PO TID PRN (Reason: Burning with urination) 3 Days Qty: 9 0RF No Action gabapentin 600 mg tablet 600 mg PO QID sumatriptan succinate 100 mg tablet 100 mg PO NEEDED clonazepam 0.5 mg tablet 0.5 mg PO BID baclofen 20 mg tablet 20 mg PO QID calcium carbonate 600 mg calcium (1,500 mg) tablet 600 mg PO BID PRN (Reason: indigestion) ergocalciferol (vitamin D2) 1,250 mcg (50,000 unit) capsule 1,250 mcg PO MO propranolol 20 mg tablet 10 mg PO TID metformin 500 mg tablet extended release 24 hr 500 mg PO BID olanzapine 20 mg tablet 20 mg PO BEDTIME bupropion HCl 300 mg tablet extended release 24 hr 300 mg PO DAILY duloxetine 20 mg capsule,delayed release(DR/EC) 20 mg PO BID multivit with min-folic acid [Multivitamin Gummies] 200 mcg Tablet,Chewable 2 tab PO BEDTIME magnesium citrate 83.3 mg Tablet,Chewable 83.3 mg PO DAILY Zepbound 2.5 mg/0.5 mL pen injector 2.5 mg subcut QWEEK Rx Instructions: for 4 weeks Print Language: St Helenian
[2025-03-12 15:30] LABS: Alanine Aminotransferase 41 U/L (0-31); Albumin Level 4.4 g/dL (3.5-5.0); Alkaline Phosphatase 117 U/L (39-117); Anion Gap 14 (12-20); Aspartate Amino Transferase 44 U/L (5-31); Bilirubin Total 0.3 mg/dL (0.0-1.0); Blood Urea Nitrogen 14 mg/dL (9-16); Calcium 10.1 mg/dL (8.4-10.2); Carbon Dioxide 30 mmol/L (22-29); Chloride 102 mmol/L (96-108); Creatinine Clr Calc Pharmacy 84.7; Estimated Glomerular Filt Rate > 60; Glucose Random 98 mg/dL (60-115); Potassium 4.6 mmol/L (3.3-5.1); Sodium 141 mmol/L (135-145); Total Protein 7.4 g/dL (6.5-8.0)
[2025-03-12 16:00] VITALS: BP 109/67; PULSE 63; RESP 12; TEMP 36.9; O2SAT 99
[2025-03-12 16:13] LABS: Appearance Urine Cloudy; Color Urine Yellow; Glucose Urine UA Negative (Negative); Leukocyte Esterase Urine Moderate (2+) (Negative); Nitrite Urine Positive (Negative); PH 7.5 (5.0-9.0); UMIC TRIGGER UACC YES; Urine Blood Small (1+) (Negative); Urine Ketones Negative (Negative); Urine Protein Trace mg/dL (Neg-Trace)
[2025-03-12 16:17] LABS: Bacteria Urine 4+ (None Seen); Hyaline Casts Urine 0-2 /LPF (0-2); RBC Urine >20 /HPF (0-2); UACC Culture Trigger YES; WBC Urine 21-50 /HPF (0-5)
--- NOTE | 2025-03-12 16:23 | PC.NURSE ---
patient placed on garden tractor mechanic stretcher, pelvis supplies set up for ED providers for exam
--- OUTSIDE RECORDS SUMMARY | 2025-03-12 17:05 | XMS_ITS | Patient Health Record ---
Author Organization [facility] Address [address] [facility] [address] [place], [place] [phone] Support Name Relationship Address Phone Rita Begum Emergency Contact [address] [place] [address] Charline Hernandez Guarantor Unknown Allergies Allergen (clinical [...] Status Risk Notes Problem Vitamin D deficiency (11261673) Vitamin D deficiency, unspecified (E55.9) Active confirmed Problem Anxiety disorder (539149761) Anxiety disorder, unspecified (F41.9) Active confirmed Problem Cramp in lower leg associated with rest (816058515) Sleep related leg cramps (G47.62) Active confirmed Problem Atherosclerosis of renal artery (97096469) Atherosclerosis of renal artery (I70.1) Active confirmed Problem Fibromyalgia (064896972) Fibromyalgia (M79.7) Active confirmed Problem Sara-Danlos syndrome (disorder) (103326197) Sara-Danlos syndrome, 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
[2025-03-12] MEDS: Nitrofurantoin Monohyd/M-Cryst 100 MG CAPSULE PO (17:19)
[2025-03-12] MEDS: Phenazopyridine HCL 200 MG TABLET PO (17:19)
[2025-03-12 19:29] VITALS: BP 110/50; PULSE 64; RESP 12; TEMP 36.9; O2SAT 99
== END 2025-03-12 19:31 | disposition home or self-care (01) ==
PROVIDERS: Emergency Provider Emergency Medicine Emergency Medical Services; PCP Pediatrics
DX: N30.01 Acute cystitis with hematuria (principal); E11.9 Type 2 diabetes mellitus without complications; Z79.899 Other long term (current) drug therapy; Z79.84 Long term (current) use of oral hypoglycemic drugs
CPT/HCPCS: 36415; 80053; 81001; 85025; 87086; 87088; 87186; 99283; 99284

== ENCOUNTER → 2025-03-20 08:39 | Outpatient (REF) | payer OTHER, SELFPAY ==
--- OUTSIDE RECORDS SUMMARY | 2025-03-20 08:59 | XMS_ITS | Patient Health Record ---
Author Organization [facility] Address [address] [place], [place] [address] Support Name Relationship Address Phone Rita Begum Emergency Contact [address] [place] [address] Charline Hernandez Guarantor Unknown Allergies Allergen (clinical [...] Status Risk Notes Problem Vitamin D deficiency (32279631) Vitamin D deficiency, unspecified (E55.9) Active confirmed Problem Anxiety disorder (707368860) Anxiety disorder, unspecified (F41.9) Active confirmed Problem Cramp in lower leg associated with rest (267428855) Sleep related leg cramps (G47.62) Active confirmed Problem Atherosclerosis of renal artery (78127357) Atherosclerosis of renal artery (I70.1) Active confirmed Problem Fibromyalgia (942155450) Fibromyalgia (M79.7) Active confirmed Problem Sara-Danlos syndrome (disorder) (047788316) Sara-Danlos syndrome, 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
== END ==
LOC: HO.SL 08:39
PROVIDERS: PCP Pediatrics; Visit Provider Nurse Practitioner Family
DX: R40.0 Somnolence (principal); R06.83 Snoring
CPT/HCPCS: 95806

== ENCOUNTER → 2025-03-20 09:40 | Outpatient (BNV) | payer OTHER, SELFPAY | PROVIDERS: PCP Pediatrics; Visit Provider Internal Medicine | DX: R40.0 Somnolence (principal); R06.00 Dyspnea, unspecified | CPT/HCPCS: 95806 ==

== ENCOUNTER 2025-04-23 14:01 | Outpatient (AMB) | payer OTHER, SELFPAY ==
--- NOTE | 2025-04-23 14:25 | MHC.OFFVIS ---
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 Zipper Required: No Backup Sawyer: Backup Sawyer Present Allergies ciprofloxacin Allergy (Verified 04/23/25 14:32) Swelling Penicillins Allergy (Verified 04/23/25 14:32) Swelling Medication List - Last Reconciled 04/23/25 by Lit Velez MD baclofen 20 mg PO QID bupropion HCl XL 300 mg PO DAILY calcium carbonate 600 mg PO BID PRN clonazepam 0.5 mg PO BID duloxetine 20 mg PO BID ergocalciferol (vitamin D2) 1,250 mcg PO MO gabapentin 600 mg PO QID magnesium citrate 83.3 mg PO DAILY metformin ER 500 mg PO BID multivit with min-folic acid 200 mcg (Multivitamin Gummies) 2 tabs PO BEDTIME nitrofurantoin monohyd/m-cryst 100 mg (Macrobid) 100 mg PO Q12H 5 days propranolol 10 mg PO TID sumatriptan succinate 100 mg PO NEEDED tirzepatide (weight loss) (Zepbound) 2.5 mg subcut QWEEK HPI Comments Details: [age] year female who is referred to us for tachycardia. 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 Her sister was on the telephone who is a twin sister and also has Sara-Danlos syndrome. At 1 stage Charline was told that she may have had POTS but currently she does not stand and does not have any relevant POTS symptoms. She is sent to us for tachycardia which is based on he home sleep study. The sleep study was done because she was getting confused when she wakes up and also had significant snoring headaches and nightmares. I looked at the home sleep study report and it was reported as no sleep apnea and her average heart rate was 65.6 with highest heart rate during sleep of 255 beats per minute. Lowest heart rate was 38 beats per minute. There are no strips or any clear documentation about duration of the tachycardia. Overall it is quite confusing and unclear. The patient has no symptoms and is denying palpitations, shortness of breath or chest pains. She can not stand anymore and POTS symptoms are irrelevant currently. [facility] Medical History Hypoventilation associated with obesity syndrome Restrictive lung disease Somatoform disorder Migraines Depression Borderline personality disorder DM2 (diabetes mellitus, type 2) PTSD (post-traumatic stress disorder) Bedbound Social History Household Members: None Housing: House Do you presently have visiting nurse or other home services: Yes (hand mold maker services 19/04.) Patient Tobacco Use Status: Former Tobacco user Tobacco use type: Cigarette Cigarette Packs Per Day: 1.0 Years Smoked: 25 years Second Hand Smoke Exposure: No service: No Review of Systems ENT Reports dizziness Card Denies chest pain, Denies chest pain at rest, Denies chest pain with activity, Denies rapid heart rate, Denies pedal edema, Denies edema, Denies leg edema, Denies lightheadedness, Denies palpitations, Denies dyspnea, Denies dyspnea on exertion and Denies orthopnea Resp Denies cough, Denies dyspnea and Denies dyspnea on exertion GI Denies hematochezia and Denies change in stool character Musc Denies abnormal gait, Reports limited range of motion, Reports muscle cramps, Denies muscle weakness, Denies numbness, Denies radiating pain into limb, Denies stiffness and Denies tingling Neuro Denies abnormal gait, Reports dizziness, Denies numbness and Denies tingling Endo Denies palpitations Physical Exam Vital Signs: Last Vital Signs Pulse 66 04/23/25 14:26 BP 114/62 04/23/25 14:26 GENERAL APPEARANCE: in no acute distress, pleasant. On supplemental oxygen. Laying in the stretcher. NECK: no carotid bruit, no jugular venous distention. SKIN: no suspicious lesions, warm and dry. HEART: no murmurs, regular rate and rhythm. LUNGS: clear to auscultation bilaterally. ABDOMEN: soft, nontender. EXTREMITIES: no edema. PERIPHERAL PULSES: equal. Office Procedures EKG Details: Sinus rhythm 66 beats per minute, normal ECG, QTC 402 milliseconds. 25853-Ijafctbjzcrqjqjbd, Complete Assessment & Plan Assessment & Plan (1) Tachycardia: Code(s): R00.0 - Tachycardia, unspecified Category: Medical (2) Confusion: Code(s): R41.0 - Disorientation, unspecified Category: Medical Plan Pleasant 44 year female who is here for question tachycardia noted on home sleep study. Her EKGs in the office is normal. She has no symptoms currently to report. She has nighttime hypoxia which is probably related with obesity hypoventilation. Unsure whether she has any hypercapnia and CO2 retention which leads to confusion in the morning. Her caregiver said that she is not somnolent she just wakes up and is alert but does not know where she is. Her oxygen level at night fluctuates. She has a lot of symptoms of sleep apnea and I think she will follow up with pulmonology to have further assessment and may need a formal sleep study. In terms of this questionable tachycardia-I have advised her to do Holter monitor which we will arrange for her. She had echocardiography recently at [facility] where EF was 55-60% and no significant valvular or pericardial issues were picked up. I have advised the a caregiver that Charline can see us as needed. As the Holter monitor his or comes back we will reach out to the patient. If it is normal then definitely she can see us PRN but if any abnormalities pick then we will discuss further management. Thank you for allowing me to participate in the care of your patient. Please feel free to contact me if you have any questions. Orders: Orders ECG 14 day holter monitor Today R00.0 - Tachycardia, unspecified Coding Level of Care Code New Pt Level 4 (30371) Diagnoses Tachycardia R00.0 Confusion R41.0 CPT Codes EKG - CPT: 07221-Hdeqtzxmdmmnrnfpk, Complete ([id number])
[2025-04-23 14:26] VITALS: BP 114/62; PULSE 66
--- OUTSIDE RECORDS SUMMARY | 2025-04-23 14:44 | XMS_ITS | Encounter Summary ---
Author Organization [facility] Address [address] [place] [address] [place] [address] Phone Care Team Providers Care Fish And Wildlife Warden Name Role Phone Garland Molina CNP Primary Care Provider [phone] Jennifer Teresa MD Unavailable [phone]- [phone] Beronica Simpson MD Primary Care Provider [phone] [phone] Ricardo Crocker Primary Care Provider [phone]- [phone] Reason for Visit * Reason Onset Date Comments Medication Problem 10/31/2021 Medication Refill 11/03/2021 Encounter Details Date Type Department Care Team (Late st Contact Info) Description 10/31/2021 Telephone [facility] [address] [address] Garland Molina CNP [address] [facility], [address] [place] [address] [email or web address] Medication Problem; Medication Refill Social History Tobacco Use Types Packs/Day Years Used Date Smoking Tobacco: Former Cigarettes 9 - 2013 Smokeless Tobacco: Never Alcohol Use Standard Drinks/Week Comments Never 0 (1 standard drink = 0.6 oz pur e alcohol) Comments Unknown Sex and Gender Information Value Date Recorded Sex Assigned at Female 09/02/2021 7:22 AM EST Legal Sex Female 9:24 PM EDT Gender Identity Non-binary 08/30/2024 11:12 AM EST Sexual Orientation Queer 02/23/2023 11 :28 AM EDT Occupation Industry Job Start Date Job End Date Disabled Not on file Not on file Not on file documented as of this encounter Progress Notes * Sheldon Begum RN - 11/03/2021 11:20 AM EST Pt calls and states she has an appointment today for telehealth with [facility] re: her Headaches. Pt states the appt is with [facility], not pain mgmt clinic. Pt also has requested referral to pain clinic. States Haque asked her to seek medication changes with the provider who has prescribed her Sumatriptan, and this is the place she had gone. Tad Haque has recommended neuro referral--pt is agreeable to this. Referral to Dr Kaba pended. * Garland Molina NP - 11/03/2021 10:41 AM EST We can refer her to Dr. Martínez or another neurologist of her choosing. I will not prescribe any controlled substances for her given her other medications. * Sheldon Begum RN - 11/03/2021 10:13 AM EST Pt calls with another question re: Migraine medication Advised as per PCP. Cannot use NSAIDs due to gastritis, recently hospitalized with gastritis due to NSAID use. Uses tylenol at high doses but this does not help VILLANUEVA. Uses Gabapentin 600mg 4x daily, but is very concerned for the potentially dangerous interaction with diazepam. [facility] has done some research and wishes to stop sumatriptan and the gapbapentin and asks if can this be replaced with Tramadol this is not dangerous not like percocet Neuro, Roberta Boo prescribes Baclofen and Gabapentin. Valium is rx'd by psych Dr Verdugo. Sumatriptan recently prescribed by a telehealth portal provider that she used when the mHA began and when she was without insurance, but does not have ongoing relationship with that person. Has had daily headaches for the past month since discharge from hospital. I need my PCP to help me out * Garland Molina NP - 11/01/2021 12:53 PM EST I have never seen Charline in person and do not manage her medications. Whoever has been prescribingher sumatriptan needs to manage this. I recommend a neurologist given her other issues. Please see recent telemedicine visit. * Sheldon Begum RN - 10/31/2021 4:38 PM EST Call from pt Is needing to use sumatriptan daily and neurologist has said that is too much. (Does not see neurologist for VILLANUEVA, happened to be on a telemed re: movement disorder and mentioned her VILLANUEVA and sumatriptan ) Seeking alternative to sumatriptan Can't use beta blockers. Interested is using one of the following: Topiramate Qudexy XR (ext release topiramate) Depakote Already on gabapentin daily To PCP--please advise. * Hollis Wright - 10/31/2021 8:56 AM EST andres ( network control technician ) calling with SUMAtriptan (IMITREX) 100 MG tablet Stating rx is not helping pt with migraines documented in this encounter Plan of Treatment Not on file documented as of this encounter Visit Diagnoses Not on filedocumented in this encounter Care Teams Fish And Wildlife Warden Relationship Specialty Start Date End Date Garland Molina CNP [address] [place] [address], [address] [place] [address] [email or web address] PCP - General Family Medicine 10/15/21 07/12/22 Beronica Simpson MD [address] [place] [address] PCP - General 07/17/22 02/22/23 Ricardo Crocker PA [address] [place] [address] PCP - General Physician Hospitality Workers 02/23/23 Jennifer Teresa MD [address] [place] [address] [email or web address] Insurance Assigned Provider 01/31/22 05/02/22 documented as of this encounter Additional Source Comments The information contained in this document represents components of the legal health record. It is not the complete legal health record.[facility]
--- OUTSIDE RECORDS SUMMARY | 2025-04-23 14:45 | XMS_ITS | Data Portability ---
Author Organization [place] [facility] Address [address] [place] [address] Care Team Providers Care Technical Operations Vice President Name Role Phone AMOR ROSARIO Primary Care Provider Assessment Encounter Date Assessment Date Assessment LastModified by Organization Details LastModified Time 07/04/2022 07/04/2022 INCOMPLETE DO NOT BILL RESCHEDULED [email or web address] Not available 07/04/2022 11:54:31 07/06/2022 07/06/2022 Overview/History : 42 YO F new to DH and new to provider She is being seen today as her 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 Addn patient is concerned as well as she has been unable to drink, eat, stand, get to bathroom, dress herself. She has 24/ MILL DRESSER care. [place] [facility] [place] was [place] 17 [place]. Sister [...] exam at this time d/t her anxiety. -ell teacher and family )as well as pt herself) [...] and takes. -She is handed off to [place] [employer] who knows her and she gets in the ambulance to go with them -Her college close friend chika is going to meet her at the hopsital to help her anxiety and she is going to [facility] whom I did call expect to I called and updated pt sister as pt would like us to do that and the patient, her ell teacher, and pt herself thanks us for our [...] I have accessed patient records on the [employer]. This information was pertinent in my medical decision making today. [email or web address] Not available 07/06/2022 18:04:08 Plan of Treatment [...] Name and Address Organization Details Recorded Time [id number] Product containin g penicilli n (product) medicatio n Not available Not available Not available 07/04/2022 [id number] SNOMED Ada Shah, LIFE AGENT [address], [place], [address], [place] [facility] 10:55:43 [id number] Cipro medicatio n Not available Not available Not available 07/04/2022 87403 3 RxNorm [place] Shah, LIFE AGENT [address], [place], [address], [place] [facility] 10:55:47 Medications [...] CHF N Parkinson's Disease N Cancer N Dementia N Stroke N Depression N Asthma N COPD N Hypothyroidism N High Cholesterol N Rheumatoid Arthritis N Pulmonary Embolism N Hypertension N A-fib N Osteoporosis N Kidney Disease N Gynecological HistoryNo gynecological history recorded. Obstetrics History GPAL:G 0 P 0 0 0 0 Past Encounters Encounter ID Performer Location Encounter Start Date Encounter Closed Date Diagnosis/Indication Diagnosis SNOMED-CT Code Diagnosis ICD10 Code Diagnosis Note [id number] [place] [facility] [address] [place] [address] 07/04/2022 10:50:21 07/04/2022 11:34:19 [id number] BREN[facility] Holder [facility] [address] [place] [address] 07/06/2022 16:25:21 07/07/2022 12:43:22 Tachycardia 3399566 R00.0 Adult fail ure to thrive syndrome 788281453 R62.7 Health Concerns Section Related Observation LastModified by Organization Detai ls LastModified Time None Recorded Concern Status LastModified by Organization Details LastModified Time None Recorded Advance Directives Directive None Recorded Payers Insurance Date Sequence Insurance Name Policy Number Policy Hunter Covered Member ID Hunter Member ID Guarantor Name 07/10/2022 1 *SELF PAY* Charline Hernandez NEED [facility] ID Charline Mary 07/07/2022 1 [place] Charline Rothmaneduarda [id number] Charline Rothmaneduarda 07/03/2022 1 *SELF PAY* Charline Hernandez [id number] Charline Mary 07/21/2022 1 [place] Charline Rothmaneduarda [id number] Charline Mary 09/09/2022 1 [place] Charlinechelo Hernandez [id number] Charlinechelo Hernandez 07/22/2022 1 [facility] (MEDICAID REPLACEMENT - HMO) [id number] Charline Hernandez [id number] Charlinechelo Hernandez 07/07/2022 1 [facility] (MEDICAID REPLACEMENT - HMO) [id number] Charline Hernandez [id number] Charline Hernandez OBGyn Episode No OBEpisode recorded.
--- OUTSIDE RECORDS SUMMARY | 2025-04-23 14:45 | XMS_ITS | Patient Health Record ---
Author Organization [facility] Address [address] [place] [address] [address] [place] [address] Support Name Relationship Address Phone Charline Hernandez Guarantor Unknown Allergies Allergen (clinical drug ingredient) Drug/Non Drug Allergy documented on EMR Reaction Allergy Type Onset Date Status penicillin V Penicillin V Potassium Unknown Drug Allergy Active Reason For Referral No Information Medications Medication SIG (Take, Route, Frequency, Duration) Notes Start Date End Date Status Valium 5 MG 1 tablet as needed O rally TID PRN; Duration: 14 days 08/10/2019 Active Valium 5 MG 1/2 tab po PRN Twice a day; Duration: 30 days 07/27/2019 Active Social History Tobacco [...] Problem Status W/U Status Risk Notes Problem Chronic pain (91343177) Other chronic pain (G89.29) Active confirmed Problem Sciatica (72173412) Lumbago with sciatica, unspecified side (M54.40) Active confirmed Problem Chronic fatigue syndrome (25902917) Chronic fatigue (R53.82) Active confirmed Problem Sara-Danlos syndrome (disorder) (434771291) 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 Problem Polymyalgia rheumatica (30658585) Polymyalgia rheumatica syndrome (M35.3) Active confirmed Problem Akathisia (049330930) Akathisia (G25.71) Active confirmed Plan Of Treatment Pending Test Test Name Order Date Potassium, Serum 05/24/2018 Magnesium, Serum 08/10/2019 Fibrinogen Activity 04/21/2019 Aldolase 04/21/2019 TSH 04/21/2019 TSH 05/17/2018 TSH 08/10/2019 Sedimentation Rate-Westergren 05/17/2018 ELIAS Comprehensive Panel 04/21/2019 ELIAS Comprehensive Panel 08/10/2019 Hepatitis BsAb 08/10/2019 Hepatitis BsAb 04/21/2019 Hepatitis BsAg 04/21/2019 Hepatitis BsAg 08/10/2019 Chem-Comprehensive 08/10/2019 Chem-Comprehensive 12/09/2018 Chem-Comprehensive 04/21/2019 Chem-Comprehensive 05/17/2018 TSH 12/09/2018 HEPATITIS C AB 08/10/2019 HEPATITIS C AB 04/21/2019 CPK Creatine Kinase,Total,Serum 04/21/20 19 *CBC With Differential/Platelet 04/21/20 19 *CBC With Differential/Platelet 12/10/19 19 PT and PTT 04/21/2019 Lyme Ab/Western Blot Reflex 08/10/2019 Lyme Ab/Western Blot Reflex 04/21/2019 Lyme Ab/Western Blot Reflex 12/09/2018 CBC (INCLUDES DIFF/PLT) 08/10/2019 Insurance Providers Payer Name Payer Address Payer Phone Subscriber Number Group Number Insured Name Patient Relationship to Insured Coverage Start Date Coverage End Date [employer] [address] [place], [place] [id number] Charline Osorio Self - patient is the insured Medical (General) History Medical History History ICD Code hx of muscle stiffness and joint stiffne ss of undetermined cause Surgical History Surgery Date(Month/Year) jaw surgery 2004 Hospitalization History Reason Date(Month/Year) stiffness, in hospital several times for this 06/2019
--- OUTSIDE RECORDS SUMMARY | 2025-04-23 14:45 | XMS_ITS | Patient Health Record ---
Author Organization [facility] Address [address] [place] [address] Care Team Providers Care Construction Craft Laborer Name Role Phone Clovistravis Beronica Primary Care Provider Benton barrios HANCOCKLINDSEY Unavailable [phone] Allergies Allergen (clinical drug ingredient) Drug/Non Drug Allergy documented on EMR Reaction Allergy Type Onset Date Status ciprofloxacin Ciprofloxacin Unknown Drug Allergy Active Penicillin Unknown Drug Allergy Active Reason For Referral No Information Medications Medication SIG (Take, Route, Frequency, Duration) Notes Start Date End Date Status Reglan PRN Active diazePAM Muscle relaxant Active Advil prn Active Simethicone Active Excedrin PM Not-Taki ng/P RN Gabapentin 600 mg Active Pepto-Bismol Not-Moose ing/P RN Propranolol HCl Acti ve Tums Not-Taking /P RN Savella Active Pepcid Not-Taking /P RN Baclofen 10 MG/5ML Solution as directed Intrathecal 20 mg Active Mylanta Not-Taking /P RN Cyclobenzaprine HCl Muscle relaxant Not-Taking/P RN Carafate 1 GM Tablet 1 tablet on an empty stomach Orally QID; Duration: 30 day(s) 10/03/2021 Active Ondansetron [address] 1 TABLET UNDER TONGUE EVERY 4-6HR NEEDED FOR NAUSEA QID; Duration: 30 days Active Pantoprazole Sodium 40 MG Tablet Delayed Release TAKE 1 TABLET BY MOUTH TWICE DAILY; Duration: 30 Active Social History Section Notes: Social history documented on 02/11/2021nd reviewed on 07/04/2021 with no change Smoking are you a: previous smoker, 1 pack a day between 14-35 years old Environmental Exposures: An extensive record of environmental exposures at home and at work were obtained: -Wood burning stove: none -Fireplace: none -Visible mold or mildew in the home/work: none -Workplace allergen exposures include: none -Feather pillows on the bed (likely high in dust mites): none -Down comforter on the bed (likely high in dust mites): none -Bedroom carpeting (associated with dust mites): none -Pet: dog -Indoor smoking: no. Social history documented on 02/11/2021 reviewed on 08/25/2021 with no change Smoking are you a: previous smoker, 1 pack a day between 14-35 years old Environmental Exposures: An extensive record of environmental exposures at home and at work were obtained: -Wood burning stove: none -Fireplace: none -Visible mold or mildew in the home/work: none -Workplace allergen exposures include: none -Feather pillows on the bed (likely high in dust mites): none -Down comforter on the bed (likely high in dust mites): none -Bedroom carpeting (associated with dust mites): none -Pet: dog -Indoor smoking: no. Social history documented on 02/11/2021 reviewed on 10/03/2021 with no change Smoking are you a: previous smoker, 1 pack a day between 14-34 years old Environmental Exposures: An extensive record of environmental exposures at home and at work were obtained: -Wood burning stove: none -Fireplace: none -Visible mold or mildew in the home/work: none -Workplace allergen exposures include: none -Feather pillows on the bed (likely high in dust mites): none -Down comforter on the bed (likely high in dust mites): none -Bedroom carpeting (associated with dust mites): none -Pet: dog -Indoor smoking: no. Social history documented on 02/11/2021 Smoking are you a: previous smoker, 1 pack a day between [age] years old Environmental Exposures: An extensive record of environmental exposures at home and at work were obtained: -Wood burning stove: none -Fireplace: none -Visible mold or mildew in the home/work: none -Workplace allergen exposures include: none -Feather pillows on the bed (likely high in dust mites): none -Down comforter on the bed (likely high in dust mites): none -Bedroom carpeting (associated with dust mites): none -Pet: dog -Indoor smoking: no. 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
--- OUTSIDE RECORDS SUMMARY | 2025-04-23 14:45 | XMS_ITS | Patient Health Record ---
Author Organization [facility] Address [address] [facility] [address] [place], [place] [address] Support Name Relationship Address Phone Rita Begum Emergency Contact [address] [place] [address] Charline Hernandez Guarantor Unknown [phone] Allergies Allergen (clinical drug ingredient) Drug/Non Drug Allergy documented on EMR Reaction Allergy Type Onset Date Status ciprofloxacin Cipro Unknown Drug Allergy Act negar penicillin rash Drug Allergy Active Reason For Referral No Information Medications Medication SIG (Take, Route, Frequency, Duration) Notes Start Date End Date Status Valium 10 mg 1 tab(s) orally 3 times a day; Duration: 30 days Active cyclobenzaprine 5 mg 1 tab(s) orally qid; Duration: 30 day(s) 4 times a day Active metoclopramide 5 mg 1 tab(s) orally 4 times a day (before meals and at bedtime); Duration: 12 week(s) as needed Not-Taking Problems Problem Type SNOMED Code ICD Code Onset Dates Problem Status W/U Status Risk Notes Problem Vitamin D deficiency (24409478) Vitamin D deficiency, unspecified (E55.9) Active confirmed Problem Anxiety disorder (160059512) Anxiety disorder, unspecified (F41.9) Active confirmed Problem Cramp in lower leg associated with rest (690682067) Sleep related leg cramps (G47.62) Active confirmed Problem Atherosclerosis of renal artery (19257307) Atherosclerosis of renal artery (I70.1) Active confirmed Problem Fibromyalgia (924563543) Fibromyalgia (M79.7) Active confirmed Problem Sara-Danlos syndrome (disorder) (497748244) Sara-Danlos syndrome, unspecified (Q79.60) Active confirmed Plan [...] BCBS Blue Card [address] [place] [address] [id number] Charline Hernandez Self - patient is the insured Medical (General) History Medical History History ICD 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
== END 2025-04-23 15:26 | disposition home or self-care (01) ==
PROVIDERS: PCP Pediatrics; Visit Provider Internal Medicine Cardiovascular Disease
DX: R00.0 Tachycardia, unspecified (principal); R41.0 Disorientation, unspecified
CPT/HCPCS: 93010; 99214

== ENCOUNTER → 2025-04-23 14:01 | Outpatient (BNVA) | payer OTHER, SELFPAY | PROVIDERS: PCP Pediatrics; Visit Provider Internal Medicine Cardiovascular Disease | DX: Z71.2 Person consulting for explanation of examination or test findings (principal); R41.0 Disorientation, unspecified; R00.0 Tachycardia, unspecified | CPT/HCPCS: 93005; 99212 ==

== ENCOUNTER → 2025-04-30 10:30 | Outpatient (REF) | payer OTHER, SELFPAY ==
--- NOTE | 2025-04-30 10:36 | HM_ITS ---
Conclusion: 1. Patient was monitored for total period of 26 days 2. Baseline was normal sinus rhythm with average heart of 73 beats per minute 3. No significant arrhythmias or pauses noted 4. No patient reported events MTDD
--- OUTSIDE RECORDS SUMMARY | 2025-04-30 11:16 | XMS_ITS | Patient Health Record ---
Author Organization [facility] Address [address] Floor 1 [place] [address] Care Team Providers Care Sql Report Analyst Name Role Phone Clovistravis Beronica Primary Care Provider Benton barrios HANCOCKLINDSEY Unavailable [phone] Allergies Allergen (clinical drug ingredient) Drug/Non Drug [...] Insured Coverage Start Date Coverage End Date [facility] [address] [place] [phone] [id number] Charline Osorio Self - patient is the insured [facility] [employer] [address] [place] [address] [id number] Charline Osorio Self - patient is the insured Medical (General) History Medical History History ICD Code 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
--- OUTSIDE RECORDS SUMMARY | 2025-04-30 11:16 | XMS_ITS | Patient Health Record ---
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 Problem Polymyalgia rheumatica (30458704) Polymyalgia rheumatica syndrome (M35.3) Active confirmed Problem Akathisia (584512487) Akathisia (G25.71) Active confirmed Plan Of Treatment Pending Test Test Name Order Date Potassium, Serum 05/24/2018 Magnesium, Serum 08/10/2019 Fibrinogen Activity 04/21/2019 Aldolase 04/21/2019 TSH 04/21/2019 TSH 08/10/2019 TSH 05/17/2018 Sedimentation Rate-Westergren 05/17/2018 ELIAS Comprehensive Panel 08/10/2019 ELIAS Comprehensive Panel 04/21/2019 Hepatitis BsAb 04/21/2019 Hepatitis BsAb 08/10/2019 Hepatitis BsAg 08/10/2019 Hepatitis BsAg 04/21/2019 Chem-Comprehensive 04/21/2019 Chem-Comprehensive 08/10/2019 Chem-Comprehensive 05/17/2018 Chem-Comprehensive 12/09/2018 TSH 12/09/2018 HEPATITIS C AB 08/10/2019 HEPATITIS [...] End Date [employer] [facility] [address] [place], [place] [id number] Charline Osorio Self - patient is the insured Medical (General) History Medical History History ICD Code hx of muscle stiffness and joint stiffne ss of undetermined cause Surgical History Surgery Date(Month/Year) jaw surgery 2004 Hospitalization History Reason Date(Month/Year) stiffness, in hospital several times for this 06/2019
--- OUTSIDE RECORDS SUMMARY | 2025-04-30 11:16 | XMS_ITS | Encounter Summary ---
Author Organization [facility] Address [address] [place] [address] [place] [address] Phone Care Team Providers Care Skein Yarn Dyer Name Role Phone Garland Molina CNP Primary Care Provider [phone] [phone] Jennifer Teresa MD Unavailable [phone]- [phone] Beronica Simpson MD Primary Care Provider [phone] -[phone] Ricardo Crocker Primary Care Provider +1- [phone] Reason for Visit * Reason Onset Date Comments Medication Problem 10/31/2021 Medication Refill 11/03/2021 Encounter Details Date Type Department Care Team (Late st Contact Info) Description 10/31/2021 Telephone [facility] [address] [address] Garland Molina CNP [address] [facility] [place] [address] [email or web address] Medication Problem; Medication Refill [...] has an appointment today for telehealth with [facility] re: her Headaches. Pt states the appt is with [facility] Urgent care, not pain mgmt clinic. Pt [...] for the potentially dangerous interaction with diazepam. [facility] has done some research and wishes to [...] - 10/31/2021 8:56 AM EST andres ( security intern ) calling with SUMAtriptan (IMITREX) 100 MG tablet Stating rx is not helping pt with migraines documented in this encounter Plan of Treatment Not on file documented as of this encounter Visit Diagnoses Not on filedocumented in this encounter Care Teams Skein Yarn Dyer Relationship Specialty Start Date End Date Garland Molina CNP [address] [place] [address], [address] [place] [address] [email or web address] PCP - General Family Medicine 10/15/21 07/12/22 Beronica Simpson MD [address] [place] [address] PCP - General 07/17/22 02/22/23 Ricardo Crocker PA [address] [place] [address] PCP - General Physician Glaze Mixer 02/23/23 Jennifer Teresa MD [address] [place] [id number] [email or web address] Insurance Assigned Provider 01/31/22 05/02/22 documented as of this encounter Additional Source Comments The information contained in this document represents components of the legal health record. It is not the complete legal health record.[facility]
--- OUTSIDE RECORDS SUMMARY | 2025-04-30 11:16 | XMS_ITS | Patient Health Record ---
Author Organization [facility] Address [address] [facility] [address] [place], [place] [id number] Support Name Relationship Address Phone Rita Begum Emergency Contact [address] [place] [address] Charline Hernandez Guarantor Unknown Allergies Allergen (clinical [...] Status Risk Notes Problem Vitamin D deficiency (47256676) Vitamin D deficiency, unspecified (E55.9) Active confirmed Problem Anxiety disorder (473331000) Anxiety disorder, unspecified (F41.9) Active confirmed Problem Cramp in lower leg associated with rest (517286848) Sleep related leg cramps (G47.62) Active confirmed Problem Atherosclerosis of renal artery (17572705) Atherosclerosis of renal artery (I70.1) Active confirmed Problem Fibromyalgia (968933569) Fibromyalgia (M79.7) Active confirmed Problem Sara-Danlos syndrome, unspecified (Q79.60) Active confirmed Plan [...] BCBS Blue Card [address] [place] [phone] [id number] Charline Hernandez Self - patient is the insured Medical (General) History Medical History History 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
== END ==
LOC: HO.CARD 10:30
PROVIDERS: PCP Pediatrics; Visit Provider Internal Medicine Cardiovascular Disease
DX: R00.0 Tachycardia, unspecified (principal)
CPT/HCPCS: 93246

== ENCOUNTER → 2025-04-30 10:36 | Outpatient (BNV) | payer OTHER, SELFPAY | PROVIDERS: PCP Pediatrics; Visit Provider Internal Medicine Cardiovascular Disease | DX: R00.0 Tachycardia, unspecified (principal) | CPT/HCPCS: 93248 ==

== ENCOUNTER 2025-05-22 12:53 | Outpatient (AMB) | payer OTHER, SELFPAY ==
--- NOTE | 2025-05-22 13:01 | A.OFFVIS_ITS ---
Vital Signs 05/22/25 13:02 BP 118/64 Blood Pressure Location Rt brachial Position Sitting Pulse 79 Pulse Source Pulse Oximeter Pulse Oximetry (%) 96 Oxygen Delivery Method Nasal Cannula Oxygen Flow Rate 2.5 Intake Visit Reasons: Dyspnea Parasitologist Required: No Accompanied by: frozen food department manager Allergies ciprofloxacin Allergy (Verified 05/22/25 13:03) Swelling Penicillins Allergy (Verified 05/22/25 13:03) Swelling Medication List - Last Reconciled 05/22/25 by Liz Josue LPN baclofen 20 mg PO QID bupropion HCl XL 300 mg PO DAILY calcium carbonate 600 mg PO BID PRN clonazepam 0.5 mg PO BID duloxetine 20 mg PO BID ergocalciferol (vitamin D2) 1,250 mcg PO MO gabapentin 600 mg PO QID magnesium citrate 83.3 mg PO DAILY metformin ER 500 mg PO BID multivit with min-folic acid 200 mcg (Multivitamin Gummies) 2 tabs PO BEDTIME nitrofurantoin monohyd/m-cryst 100 mg (Macrobid) 100 mg PO Q12H 5 days propranolol 10 mg PO TID sumatriptan succinate 100 mg PO NEEDED tirzepatide (weight loss) (Zepbound) 2.5 mg subcut QWEEK HPI HPI Dyspnea: Details: Charline is a pleasant 45 year old female, former 25 pack year smoker, with underlying HTN, DMII, peripheral neuropathy, migraine, GERD, morbid obesity, somatoform disorder, PTSD, borderline personality, and chronically bed-bound came in by ambulance. She is accompanied by one of her supervisor travel information center, Charline. Reviewed prior records which document nonambulatory status back to 2021 in which she had a prolonged hospital stay at [facility]. Per report patient has been bedbound for many weeks secondary to weakness from gastritis causing her to have decreased PO intake and failure to thrive. At that time diagnosed with underlying somatoform disorder, previously under the care of neuropsychiatry. She has multiple TELESALES AGENT who provide 24 hour care. Today she arrives via stretcher and accompanied by TELESALES AGENTNatalie. She was initially referred by PCP for pulmonary evaluation and had established with Dr. Uribe however requested female provider. He had sent for venous blood gases which did not reveal significant CO2 retention. Unknown weight, as patient has not been weighed in quite some time. Appears morbidly obese. Previously on Ozempic, now on Zepbound unsure of effectiveness. She was seen inpatient at [facility] and displayed symptoms suggestive of OSBALDO/OHS. She also had new onset hypoxia on July 2024 admission and has been using 2- 3L supplemental oxygen continuously except 1-2 hours per day. She notes checking oxygen saturation at home, TELESALES AGENT noted since the last visit, overall improvements and questioning frequency of continued supplemental oxygen. She also notes increased timing in an upright position. They report oxygen has decreased into the upper 80s and patient recovers well with applying 2L supplemental oxygen. She continues to use 2L supplemental oxygen NOC. CTA 08/20 negative for CTA however recommendations made for repeat CTA due to suboptimal study. At the last visit she was sent for home sleep study as well as CTA and presents to review results. She denies any dyspnea, wheezing or chest tightness continues to report intermittent cough. She denies any visits to urgent care or hospitalizations since the last visit. [facility] Medical History Hypoventilation associated with obesity syndrome Restrictive lung disease Somatoform disorder Migraines Depression Borderline personality disorder DM2 (diabetes mellitus, type 2) PTSD (post-traumatic stress disorder) Bedbound Social History Household Members: None Housing: House Do you presently have visiting nurse or other home services: Yes (frozen food department manager services 19/04.) Patient Tobacco Use Status: Former Tobacco user Tobacco use type: Cigarette Cigarette Packs Per Day: 1.0 Years Smoked: 25 years Second Hand Smoke Exposure: No service: No Review of Systems Const Denies chills, Reports daytime sleepiness, Denies excessive sweating, Denies fever(s), Denies night sweats and Reports weakness Eyes Denies dry eyes, Denies irritation and Denies itchy eyes ENT Reports Normal hearing present, Denies nasal congestion, Denies nasal discharge, Denies post nasal drip and Denies sore throat Card Denies chest pain, Denies chest pain at rest, Denies chest pain with activity, Denies claudication, Denies leg edema, Denies dyspnea, Denies dyspnea on exertion, Denies orthopnea and Denies paroxysmal nocturnal dyspnea Resp Denies chest congestion, Denies excessive phlegm production, Denies pain on inspiration, Denies pain with cough, Denies dyspnea, Denies dyspnea on exertion, Denies stridor and Denies wheezing Musc Denies myalgias Neuro Reports Normal hearing present and Reports weakness Endo Denies excessive sweating Freddie/Lymph Denies lymphadenopathy Aller/Immun Denies itchy eyes, Denies seasonal rhinorrhea and Denies wheezing Physical Exam Vital Signs: Last Vital Signs Pulse 79 05/22/25 13:02 BP 118/64 05/22/25 13:02 Pulse Ox 96 05/22/25 13:02 Oxygen Delivery Method Nasal Cannula 05/22/25 13:02 Oxygen Flow Rate 2.5 05/22/25 13:02 Const Other: confined to stretcher in lateral position, obese abdomen General: cooperative, no acute distress and alert Nutritional Appearance: obese Orientation/consciousness: patient oriented x3 Limitations: physical limitations HEENT Head: Yes normal to inspection, Yes normocephalic and Yes atraumatic Ears: hearing grossly normal bilaterally and external ears normal Eyes Eyelids: Yes eyelids normal Sclerae: sclerae normal EOM: EOMs intact bilaterally Chest Chest palpation & inspection: normal inspection of the chest Resp Effort & Inspection: normal respiratory effort, able to speak in complete sentences, no audible wheezes, no cough, no stridor, not tachypneic, no tripod positioning and no use of accessory muscles Auscultation: diminished lung sounds Cardio Jugular venous distension: no JVD Rate: regular rate Rhythm: regular rhythm Skin Other: warm, dry General skin exam: no rashes or lesions noted Neuro General: patient oriented x3 Cranial nerves: Yes Normal hearing present Cognition (Neuro): normal cognition Extrem Other: contracted BLE General: Yes normal to inspection, Yes no clubbing, cyanosis or edema and Yes no pedal edema Psych Appearance: grossly normal and well kempt Speech and movement: Normal speech and movement present and Clear speech present Affect: normal affect Attitude: cooperative Thought process: Normal thought process present Thought content: Normal thought content present Results Reviewed Results Reviewed: [address] [address] [address] Scan Report Signed Patient: Charline Hernandez MR#: [id number] : 1980 Acct:[id number] Age/Sex: 44 / F ADM Date: 03/08/25 Loc: HO.CT Attending Dr: Myrtle Combs ELECTROENCEPHALOGRAM TECHNOLOGIST Ordering Physician: Myrtle Combs NP Date of Service: 03/08/25 Procedure(s): CT angio chest PE protocol Accession Number(s): [id number] cc: Maisha Rowland MD; Myrtle Combs ELECTROENCEPHALOGRAM TECHNOLOGIST~ Report Number: [id number]: Total DLP = 232.00 mGy-cm CLINICAL HISTORY: R09.02 - Hypoxemia pt is paraplegic and contracted. Pt could not raise her arms nor hold her breath. The HU trigger could not read acurately due to artifact. CT angiography chest with contrast. 3D Postprocessing. Comparison: None Findings: Nondiagnostic study. Pulmonary arteries are not adequately opacified due to technical issues. Patient is unable to raise her arm or hold her breath and contrast triggering can not performed. Pulmonary artery is normal in caliber. Normal size heart. No pericardial effusion. Thoracic aorta is normal in caliber. The visualized thyroid and mediastinum are unremarkable. Subsegmental atelectasis in the left lower lobe. Lungs are otherwise clear. No pleural effusion or pneumothorax. Hepatic steatosis. Splenomegaly measuring 15.3 cm in the AP dimension. The bones are intact. IMPRESSION: 1. Nondiagnostic pulmonary CTA due to technical factors and inadequate contrast opacification of pulmonary arteries. 2. Subsegmental atelectasis in the left lower lobe otherwise no acute thoracic findings. 3. Splenomegaly. This document has been electronically signed by: Neva Salazar MD on 03/08/2025 18:05:57 Dictated By: Neva Salazar MD Signed By: <Electronically signed by Neva Salazar MD in OV> 03/08/251805 DD/ 180 TD/TT: 03/08/251804 Junior Account Executive: Assessment & Plan Assessment & Plan (1) Hypoxia: Code(s): R09.02 - Hypoxemia Category: Medical (2) Restrictive lung disease: Code(s): J98.4 - Other disorders of lung Category: Medical (3) Morbid obesity: Code(s): E66.01 - Morbid (severe) obesity due to excess calories Category: Medical (4) Physical deconditioning: Code(s): R53.81 - Other malaise Category: Medical (5) Bedbound: Comment: BECAUSE OF MORBID OBESITY AND ALSO WEAKNESS OF LOWER EXTREMITIES SHE REMAINS BED CONFINED. Code(s): Z74.01 - Bed confinement status Category: Medical (6) Daytime somnolence: Code(s): R40.0 - Somnolence Category: Medical Plan During visit oxygen removed to assess need at rest as unable to perform 6MWT. Patient maintained >92% on room air however when patient stopped talking, oxygen did decrease to 89% and as soon as she began talking oxygen increased to 98% on room air, likely related to poor inspiration and morbid obesity. Discussed importance of maintaining >92% and continued need for supplemental oxygen 2L as well as 2L NOC. Reviewed home sleep study which was negative for sleep apnea however there was minimal nocturnal hypoxemia, low as 70%, less than 88% for 0.9 minutes with average oxygen saturation 94%. There is also note of significant variations in heart rate ranging from 38 to 255 beats per minute in which she was evaluated by cardiology and recently underwent holter monitor. Given persistent symptoms of OSBALDO, will send for in lab PSG. Discussed importance of weight loss as well as working with PT more frequently to be able to maintain an upright position for longer than the reported few minutes per day. Emphasized importance of using incentive spirometer and breathing exercises. Reviewed CTA which report stated nondiagnostic pulmonary CTA due to technical factors and inadequate contrast opacification of pulmonary arteries. There was note of subsegmental atelectasis in the left lower lobe otherwise no acute thoracic findings. Will send for DDimer, if elevated then will send for VQ scan as CTA did not provide sufficient information. All questions were answered and patient is in agreement of plan. Will follow up to review results or sooner if needed. Coding Level of Care Code Est Pt Level 4 (56617) Complex EM visit Add On G2211 Diagnoses Hypoxia R09.02 Restrictive lung disease J98.4 Morbid obesity E66.01 Physical deconditioning R53.81 Bedbound Z74.01 Daytime somnolence R40.0
[2025-05-22 13:02] VITALS: BP 118/64; PULSE 79; O2SAT 96
--- OUTSIDE RECORDS SUMMARY | 2025-05-22 13:36 | XMS_ITS | Encounter Summary ---
Author Organization [facility] Address [address] [place] [address] [place] [address] Phone Care Team Providers Care Raw Stock Machine Loader Name Role Phone Garland Molina CNP Primary Care Provider +1 -[phone] Jennifer Teresa MD Unavailable +1- [phone] Beronica Simpson MD Primary Care Provider +1 -[phone] Ricardo Crocker Primary Care Provider +1- [phone] Reason for Visit * Reason Onset Date Comments Medication Problem 10/31/2021 Medication Refill 11/03/2021 Encounter Details Date Type Department Care Team (Late st Contact Info) Description 10/31/2021 Telephone [facility] [address] [address] Garland Molina CNP [address] [facility] [place] [address] [email or web address] Medication Problem; Medication Refill Social History Tobacco [...] has an appointment today for telehealth with [facility] re: her Headaches. Pt states the appt is with [facility] Urgent care, not pain mgmt clinic. [...] for the potentially dangerous interaction with diazepam. [facility] has done some research and wishes [...] - 10/31/2021 8:56 AM EST andres ( stoker installation mechanic ) calling with SUMAtriptan (IMITREX) 100 MG tablet Stating rx is not helping pt with migraines documented in this encounter Plan of Treatment Not on file documented as of this encounter Visit Diagnoses Not on filedocumented in this encounter Care Teams Raw Stock Machine Loader Relationship Specialty Start Date End Date Garland Molina CNP [address] [place] [address], [address] [place] [address] [email or web address] PCP - General Family Medicine 10/15/21 07/12/22 Beronica Simpson MD [address] [place] [address] PCP - General 07/17/22 02/22/23 Ricardo Crocker PA [address] [place] [address] PCP - General Physician Cardiac Exercise Physiologist 02/23/23 Jennifer Teresa MD [address] [place] [id number] [email or web address] Insurance Assigned Provider 01/31/22 05/02/22 documented as of this encounter Additional Source Comments The information contained in this document represents components of the legal health record. It is not the complete legal health record.[facility]
--- OUTSIDE RECORDS SUMMARY | 2025-05-22 13:36 | XMS_ITS | Encounter Summary ---
Author Organization [facility] Address [address] [place] [address] Phone Care Team Providers Care Print Buyer Name Role Phone Conrad Gustafson MD Primary Care Provider [phone] Garland Molina CNP Primary Care Provider [phone] Jennifer Teresa MD Unavailable [phone] Beronica Simpson MD Primary Care Provider [phone] Ricardo Crocker Primary Care Provider [phone]- [phone] Encounter Details Date Type Department Care Team (Late st Contact Info) Description 08/15/2021 Procedure Pass [facility], Ct Scan - [address] [address] Social History Tobacco Use Types Packs/Day Years Used Date Smoking Tobacco: Former Cigarettes 98 - 2013 Smokeless Tobacco: Never Alcohol Use [...] on file documented as of this encounter Plan of Treatment Not on file documented as of this encounter Visit Diagnoses Not on filedocumented in this encounter Additional Health Concerns Infection Onset Date Last Indicated Resolved Time CoV-Risk 09/01/2021 09/01/2021 09/11/2021 1:23 AM EST documented as of this encounter Care Teams Print Buyer Relationship Specialty Start Date End Date Conrad Gustafson MD [address] [place] [address] [address] [place] [address] PCP - General Family Medicine 04/23/21 10/14/21 Garland Molina CNP [address] [facility] [place] [address] [email or web address] PCP - General Family Medicine 10/15/21 07/12/22 Beronica Simpson MD [address] [place] [address] PCP - General 07/17/22 02/22/23 Ricardo Crocker PA [address] [place] [address] PCP - General Physician Silk Presser 02/23/23 Jennifer Teresa MD [address] [facility] [address] [place] [address] [email or web address] Insurance Assigned Provider 01/31/22 05/02/22 documented as of this encounter Additional Source Comments The information contained in this document represents components of the legal health record. It is not the complete legal health record.[facility]
--- OUTSIDE RECORDS SUMMARY | 2025-05-22 13:36 | XMS_ITS | Patient Health Record ---
Author Organization [facility] Address [address] [facility] Floor 1 [place] [address] Care Team Providers Care Hub Bander Name Role Phone Clovistravis Beronica Primary Care Provider Betnon barrios HANCOCKLINDSEY Unavailable [phone] Allergies Allergen (clinical drug ingredient) Drug/Non Drug [...] Status Risk Notes Problem Gastroesophageal reflux disease (392779154) GERD (K21.9) Active confirmed Plan Of Treatment Pending Test Test Name Order Date CREATININE 02/11/2021 [employer], EIA, STOOL 02/11 Insurance Providers Payer Name Payer Address Payer Phone Subscriber Number Group Number Insured Name Patient Relationship to Insured Coverage Start Date Coverage End Date [facility] [address] [place] [address] [id number] Charline Osorio Self - patient is the insured [facility] DIRECT PLAN [address] [employer] [place] [place] [address] [id number] Charline Osorio Self - patient is the insured Medical (General) History Medical History History ICD Code 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
--- OUTSIDE RECORDS SUMMARY | 2025-05-22 13:36 | XMS_ITS | Encounter Summary ---
Author Organization [facility] Address [address] [place] [address] Phone Care Team Providers Care Gastroenterology Physician Name Role Phone Ricardo Crocker Primary Care Provider [phone] Encounter Details Date Type Department Care Team (Late st Contact Info) Description 08/30/2024 Procedure Pass [facility], Ct Scan - [address] [address] Social History Tobacco Use Types Packs/Day Years Used Date Smoking Tobacco: Former Cigarettes 1 2013 Smokeless Tobacco: Never Alcohol Use Standard Drinks/Week Comments Never 0 (1 standard drink = 0.6 oz pur e alcohol) Education Answer Date Recorded Are you interested in more education? Not on pablo e 01/22/2023 Are you concerned about learning? Not on file 01/22/2023 No 01/22/2023 No 01/22/2023 Digital Access Answer Date Recorded No 02/19/2023 No 02/19/2023 Reliable internet access at home? Not on file 02/19/2023 Device with a working camera? Not on file Intimate Partner Violence Answer Date R ecorded Are you denied basic needs s uch as food, clothing, or medical care? No 08/30/2024 In the past 12 months have y ou been in a relationship with a person who hurts, threatens, or tries to control you? No 08/30/2024 Are you denied basic needs s uch as food, clothing, or medical care? No 08/30/2024 In the past 12 months have y ou been in a relationship with a person who hurts, threatens, or tries to control you? No 08/30/2024 Comments Unknown Sex and Gender Information Value Date Recorded Sex Assigned at Female 09/02/2021 7:22 AM EST Legal Sex Female 9:24 PM EDT Gender Identity Non-binary 08/30/2024 11:12 AM EST Sexual Orientation Queer 02/23/2023 11 :28 AM EDT Occupation Industry Job Start Date Job End Date Disabled Not on file Not on file Not on file documented as of this encounter Functional Status * Calculated C-SSRS Risk Score (Lifetime/Recent) Answer Date of Assessment Author No Risk Indicated 08/30/2024 11:12 AM Kristyn Rdz RN * Challenge Suicide Severity Rating Scale (Screener/Recent Self-Report) Question Answer Date of Assessment Author 1. Wish to be (Past 1 Month) No 08/30/2024 11:12 AM Kristyn Rdz RN 2. Non-Specific Active Suici jarad Thoughts (Past 1 Month) No 08/30/2024 11:12 AM Johana Rdz RN 6. Suicidal Behavior (Lifetime) No 11:12 AM Kristyn Rdz RN documented as of this encounter Plan of Treatment Not on file documented as of this encounter Visit Diagnoses Not on filedocumented in this encounter Care Teams Gastroenterology Physician Relationship Specialty Start Date End Date Ricardo Crocker PA [address] [place] [address] PCP - General Physician Cardiac Sonographer 02/23/23 documented as of this encounter Additional Source Comments The information contained in this document represents components of the legal health record. It is not the complete legal health record.[facility]
--- OUTSIDE RECORDS SUMMARY | 2025-05-22 13:37 | XMS_ITS | Encounter Summary ---
Author Organization [facility] Address [address] [place] [address] Phone Care Team Providers Care Certified Coatings Inspector Name Role Phone Conrad Gustafson MD Primary Care Provider [phone] Garland Molina CNP Primary Care Provider [phone] Jennifer Teresa MD Unavailable [phone] Beronica Simpson MD Primary Care Provider [phone] Ricardo Crocker Primary Care Provider [phone]- [phone] Encounter Details Date Type Department Care Team (Late st Contact Info) Description 09/01/2021 Procedure Pass [facility], Ct Scan - [address] [address] Social History Tobacco Use Types Packs/Day Years Used Date Smoking Tobacco: Former Cigarettes 989 - 2013 Smokeless Tobacco: Never Alcohol Use [...] Date of Assessment Author No Risk Indicated 09/02/2021 7:20 AM Samreen Soliman RN * [place] Suicide Severity Rating Scale (Screener/Recent Self-Report) Question Answer Date of Assessment Author 1. Wish to be (Past 1 Month) No 021 7:20 AM Samreen Soliman RN 2. Non-Specific Active Suici jarad Thoughts (Past 1 Month) No 09/02/2021 7:20 AM Brittany Soliman RN 6. Suicidal Behavior (Lifetime) No 7:20 AM Samreen Soliman RN documented as of this encounter Plan of Treatment Not on file documented as of this encounter Visit Diagnoses Not on filedocumented in this encounter Additional Health Concerns Infection Onset Date Last Indicated Resolved Time CoV-Risk 09/01/2021 09/01/2021 09/11/2021 1:23 AM EST documented as of this encounter Care Teams Certified Coatings Inspector Relationship Specialty Start Date End Date Conrad Gustafson MD [address] [place] [address] PCP - General Family Medicine 04/23/21 10/14/21 Garland Molina CNP [address] [place], [place] [id number] [place] [address] PCP - General Family Medicine 10/15/21 07/12/22 Beronica Simpson MD [address] [place] [address] PCP - General 07/17/22 02/22/23 Ricardo Crocker PA [address] [place] [address] PCP - General Physician Corrections Identification Technician 02/23/23 Jennifer Teresa MD [address] [place] [address] [email or web address] Insurance Assigned Provider 01/31/22 05/02/22 documented as of this encounter Additional Source Comments The information contained in this document represents components of the legal health record. It is not the complete legal health record.[facility]
--- OUTSIDE RECORDS SUMMARY | 2025-05-22 13:37 | XMS_ITS | Encounter Summary ---
Author Organization [facility] Address [address] [place] [address] Phone Care Team Providers Care Supervisor Motor Vehicle Assembly Name Role Phone Beronica Simpson MD Primary Care Provider [phone] Ricardo Crocker Primary Care Provider [phone]- [phone] Encounter Details Date Type Department Care Team (Late st Contact Info) Description 07/15/2022 Procedure Pass [facility] Admitting Dept Virtual Department [address] [place] [address] Social History Tobacco Use Types Packs/Day Years Used Date Smoking Tobacco: Former Cigarettes 2013 Smokeless Tobacco: Never Alcohol Use Standard [...] on filedocumented in this encounter Care Teams Supervisor Motor Vehicle Assembly Relationship Specialty Start Date End Date Beronica Simpson MD [address] [place] [address] PCP - General 07/17/22 02/22/23 Ricardo Crocker PA [address] [place] [address] PCP - General Physician Mounter Hand 02/23/23 documented as of this encounter Additional Source Comments The information contained in this document represents components of the legal health record. It is not the complete legal health record.[facility]
--- OUTSIDE RECORDS SUMMARY | 2025-05-22 13:37 | XMS_ITS | Encounter Summary ---
Author Organization [facility] Address [address] [place] [address] [place] [address] Phone Care Team Providers Care Surveillance Investigator Name Role Phone Garland Molina CNP Primary Care Provider [phone] Beronica Simpson MD Primary Care Provider [phone] Ricardo Crocker Primary Care Provider [phone]- [phone] Encounter Details Date Type Department Care Team (Late st Contact Info) Description 07/11/2022 Procedure Pass [facility], Ct Scan - [address] [id number] Social History Tobacco Use Types Packs/Day Years [...] on filedocumented in this encounter Care Teams Surveillance Investigator Relationship Specialty Start Date End Date Garland Molina CNP [address] [facility] [place] [address] [email or web address] PCP - General Family Medicine 10/15/21 07/12/22 Beronica Simpson MD [address] [place] [address] PCP - General 07/17/22 02/22/23 Ricardo Crocker PA [address] [place] [address] PCP - General Physician Office Employee 02/23/23 documented as of this encounter Additional Source Comments The information contained in this document represents components of the legal health record. It is not the complete legal health record.[facility]
--- OUTSIDE RECORDS SUMMARY | 2025-05-22 13:37 | XMS_ITS | Patient Health Record ---
Author Organization [facility] Address [address] [facility] [address] [place], [place] [id number] Support Name Relationship Address Phone Rita Begum Emergency Contact [address] [place] [address] Charline Hernandez Guarantor Unknown Allergies Allergen (clinical [...] Status Risk Notes Problem Vitamin D deficiency (45615291) Vitamin D deficiency, unspecified (E55.9) Active confirmed Problem Anxiety disorder (604082507) Anxiety disorder, unspecified (F41.9) Active confirmed Problem Cramp in lower leg associated with rest (240658145) Sleep related leg cramps (G47.62) Active confirmed Problem Atherosclerosis of renal artery (16946636) Atherosclerosis of renal artery (I70.1) Active confirmed Problem Fibromyalgia (770033644) Fibromyalgia (M79.7) Active confirmed Problem 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
--- OUTSIDE RECORDS SUMMARY | 2025-05-22 13:37 | XMS_ITS | Patient Health Record ---
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 Problem Polymyalgia rheumatica (37184252) Polymyalgia rheumatica syndrome (M35.3) Active confirmed Problem Akathisia (436004404) Akathisia (G25.71) Active confirmed Plan Of Treatment Pending Test Test Name Order Date Potassium, Serum 05/24/2018 Magnesium, Serum 08/10/2019 Fibrinogen Activity 04/21/2019 Aldolase 04/21/2019 TSH 04/21/2019 TSH 08/10/2019 TSH 05/17/2018 Sedimentation Rate-Westergren 05/17/2018 ELIAS Comprehensive Panel 08/10/2019 ELIAS Comprehensive Panel 04/21/2019 Hepatitis BsAb 04/21/2019 Hepatitis BsAb 08/10/2019 Hepatitis BsAg 08/10/2019 Hepatitis BsAg 04/21/2019 Chem-Comprehensive 04/21/2019 Chem-Comprehensive 12/09/2018 Chem-Comprehensive 08/10/2019 Chem-Comprehensive 05/17/2018 TSH 12/09/2018 HEPATITIS C AB [...] End Date [employer] [facility] [address] [place], [place] [id number] Charline Osorio Self - patient is the insured Medical (General) History Medical History History ICD Code hx of muscle stiffness and joint stiffne ss of undetermined cause Surgical History Surgery Date(Month/Year) jaw surgery 2004 Hospitalization History Reason Date(Month/Year) stiffness, in hospital several times for this 06/2019
--- OUTSIDE RECORDS SUMMARY | 2025-05-22 13:37 | XMS_ITS | Clinical Summary ---
Author Organization [facility] Address [address] [place] [address] Phone Care Team Providers Care Care Services Manager Name Role Phone Ricardo Crocker Primary Care Provider +1- [phone] Allergies Active Allergy Reactions Criticality Noted Date Comments Amoxicillin 02/18/2020 Ciprofloxacin Hcl 03/03/2021 Penicillins 03/03/2021 Quinolones 09/15/2020 Other Reaction(s): risk of tendon repture Metoclopramide Hcl 07/10/2022 Patient states I am allergic to reglan and anything else that causes akathesia Medications diazePAM (VALIUM) 5 MG tablet Take 5 mg by mouth daily. Verified with PDMP, prescribed by doc in [place] Active baclofen (LIORESAL) 10 MG tablet Take 10 mg by mouth daily. Pt states she is prescribed this by an [place] Roberta Boo No records available 10/15/19 Active DULoxetine (CYMBALTA) 20 MG capsule Take 20 mg by mouth daily. 10/14/19 22 Active magnesium oxide 500 mg Cap Take 500 mg by mouth daily. 10/01/19 22 Active clonazePAM (KLONOPIN) 0.5 MG disintegrating tablet Take 0.5 mg by mouth 2 (two) times a day as needed. 07/19/20 22 Active ascorbic acid, vitamin C, (VITAMIN C) 500 mg ChewIndications:pr otein-calorie malnutrition Take 1 tablet (500 mg total) by mouth 2 (two) times a day. Indications: caloric undernutrition 90 tablet 3 08/18/20 22 Active magnesium citrate 85 mg Chew Take 1 tablet by mouth daily. 90 tablet 3 08/18/20 Active OLANZapine (ZYPREXA ZYDIS) 5 MG disintegrating tablet Take 0.5 tablets (2.5 mg total) by mouth daily as needed ([place], abdominal pain). 7 tablet 1 08/18/20 Active pantoprazole (PROTONIX) 40 MG tablet Take 1 tablet (40 mg total) by mouth 2 (two) times a day. 90 tablet 3 08/18/20 Active sucralfate (CARAFATE) 100 mg/mL suspension Take 10 mL (1 g total) by mouth 4 (four) times a day. 414 mL 3 08/18/20 Active ondansetron (ZOFRAN-ODT) 4 MG disintegrating tablet Take 1 tablet (4 mg total) by mouth every 8 (eight) hours as needed for nausea. 90 tablet 3 08/18/20 Active Active Problems Problem Noted Date Diagnosed Date Electrolyte abnormality 07/25/2022 Assessment & Plan (07/27/2022 10:29 AM EDT): # hypoK, hypophos, c/f refeeding # Hemoconcentration # Starvation ketoacidosis Electrolyte imbalances, hemocontration and AG are likely driven by poor PO intake over several days. - BID lytes given risk for refeeding - Replete electrolytes as needed - consider nutrition c/s if pt becomes more willing to engage Failure to thrive in adult 07/25/2022 Assessment & Plan (07/25/2022 11:36 PM EDT): # Failure to thrive # Functional GI symptoms Declining functional status is more than likely attributed to limited PO intake. This seems to be an issue that has evolved over several months with still unclear etiology. Recent abdominal CTA without remarkable findings. Given no acute change in her abdominal symptoms, will not repeat. - Trial PO intake to assess symptoms - Can consider involving GI for further input on working diagnosis and additional treatment strategies - Continue home omeprazole, sucralfate High anion gap metabolic acidosis 07/11/2022 Assessment & Plan (07/15/2022 8:45 PM EDT): Anion gap stable Patient is continuing refusal to eat with multiple functional complaints to preclude her attempting to even swallow an ice chip. -case d/w psych who is following Psychiatric disorder 07/11/2022 Assessment & Plan (07/27/2022 10:41 AM EDT): Suspect that underlying psychiatric disorder is playing a significant role in decline. Does not seem to have engaged well in outpatient therapy and will need to consider more intensive options. - Continue duloxetine 20mg daily, baclofen 10mg daily (for spasticity) - continue home diazepam 5 mg (switched to IV as refusing PO meds and requested IV) - continue home clonazepam 0.5 BID and 0.5 daily PRN - does appear that pt takes both diazepam and clonazepam on review of PDMP. - appreciate psychiatry involvement Assessment & Plan (07/16/2022 7:23 PM EDT): Records from [facility] as well as [place] specialist reviewed. 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 Today, her complaints persist which make no physiologic sense such as inability to swallow an ice chip because it causes severe abdominal pain and vomiting. She actively refuses straightening of her arms claiming a movement disorder that freezes them. She is able to move her fingers and her wrist, and able to abduct her arm at the shoulder but refuses and resists attempt to straighten elbow. She claims that she has been drinking fluids overnight but the nurses states she refuses oral fluids. Patient then complains they had offered her the wrong fluids, or at the wrong time of day. 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 Dr. Yamile Barnes, covering psychiatry has been contacted and case has been reviewed. Question of competency and inpatient placement is to be reviewed. 07/12, patient ate tofu drank liquids yesterday. Followed by excruciating pain . 07/14, she has reportedly not had anything to eat or drink. Continues to have severe pain . Aspirin EGD, this was discussed with both psych and GI neither of whom feel this is clinically indicated as she does not have symptoms of foreign body in her esophagus. She refused labs in the morning but did accept them towards the afternoon. Her labs are normal. 07/14-fluids discontinued 07/16-tolerating small amounts of water and oral Ativan -Oral mag, oral potassium -rpt labs in am -iv ppi and zofran -trial oral benzos -She has agreed to do a modified barium swallow, scheduled for tomorrow if negative, will plan to discharge Other chronic pain 10/27/2021 Abnormal movement 10/27/2021 Assessment & Plan (07/15/2022 8:45 PM EDT): These have not been witnessed personally pt has repeated episodes of question of involuntary movements; per records she states akathisia. Her complaints and exam seem to be functional. She persistently complains she cannot move her arms but gesticulates normally during the conversation. 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 This complaint by patient should be disregarded Spasticity 03/03/2021 Encounters Date Type Department Care Team Description 03/07/2025 1:51 PM EDT - 03/07/2025 3:45 PM EDT Emergency [facility] [address] [place] [address] Discharge Disposition: Home or Self Care from Last 3 Months Immunizations Immunization Administration Dates Next Due COVID-19 (Pre-07/19) Pfizer Vaccine, mRNA, PF 01/03/2021,12/12/2020 Influenza Quadrivalent Prese rvative Free IM 08/18/2022(Deferred: Contraindication),07/17/2022(Deferred: Patient Refused) Family History Medical History Relation Comments Lower GI bleeding Father of this. Lung cancer Father with mets to bra in and liver Colon cancer Maternal Aunt Coronary artery disease Maternal Grandfather CAB G x 4 Lung cancer Maternal Grandfather Heart disease Maternal Grandmother Diabetes type II Maternal Uncle Hyperlipidemia Mother Hypertension Mother Mitral valve prolapse Mother Parkinson's disease Paternal Grandfather of pneumonia Breast cancer Paternal Grandmother witih recur rence. Heart attack Paternal Grandmother Sraa-Danlos syndrome Sister Heart murmur Sister Glaucoma Neg Hx Macular degeneration Neg Hx Stroke Neg Hx Relation Status Comments Father (Age 70) Maternal Aunt Alive Maternal Grandfather Maternal Grandmother Maternal Uncle Alive Mother Alive Paternal Grandfather (Age 97) Paternal Grandmother (Age 85) Sister Alive Social History Tobacco Use Types Packs/Day Years Used Date Smoking Tobacco: Former Cigarettes 989 - 2013 Smokeless Tobacco: Never Tobacco Cessation:Counseling Given: Not Answered Alcohol Use Standard Drinks/Week Comments Never 0 (1 standard drink = 0.6 oz pur e alcohol) Education Answer Date Recorded Are you interested in more education? Not on pablo e 01/22/2023 Are you concerned about learning? Not on file 01/22/2023 No 01/22/2023 No 01/22/2023 Food Answer Date Recorded Within the past 6 months we worried whether our food would run out before we got money to buy more. Never True 03/07/2025 Within the past 6 months the food we bought just didn't last and we didn't have enough money to get more. Never True Residential Stability Answer Date Recor ded What is your housing situation today? I have eddie sing 03/07/2025 How many times have you move d in the past 12 months? Zero (I did not move) 03/07/2025 Paying for Meds Answer Date Recorded Do you have trouble paying for medicines? No 03/07/2025 Paying Utility Bills Answer Date Record ed Do you have trouble paying your heating or elect ricity bill? No 03/07/2025 Transportation Answer Date Recorded Has the lack of transportati on kept you from medical appointments or from getting medications? No 03/07/2025 Digital Access Answer Date Recorded No 03/07/2025 Yes 03/07/2025 Do you have reliable internet access at home? Ye s 03/07/2025 Do you have a device (e.g., phone, tablet, computer) with a working camera? Yes 03/07/2025 Intimate Partner Violence Answer Date R ecorded Are you denied basic needs s uch as food, clothing, or medical care? No 03/07/2025 In the past 12 months have y ou been in a relationship with a person who hurts, threatens, or tries to control you? No 03/07/2025 Are you denied basic needs s uch as food, clothing, or medical care? No 03/07/2025 In the past 12 months have y ou been in a relationship with a person who hurts, threatens, or tries to control you? No 03/07/2025 Comments Unknown Sex and Gender Information Value Date Recorded Sex Assigned at Female 09/02/2021 7:22 AM EST Legal Sex Female 9:24 PM EDT Gender Identity Non-binary 08/30/2024 11:12 AM EST Sexual Orientation Queer 02/23/2023 11 :28 AM EDT Occupation Industry Job Start Date Job End Date Disabled Not on file Not on file Not on file Last Filed Vital Signs Vital Sign Reading Time Taken Comments Blood Pressure 110/70 03/07/2025 3:30 PM EDT Pulse 66 03/07/2025 2:04 PM EDT Temperature 36.1 C (97 F) 03/07/2025 3:30 PM EDT Respiratory Rate 16 03/07/2025 3:30 PM EDT Oxygen Saturation 95% 03/07/2025 3:30 PM EDT Inhaled Oxygen Concentration - - Weight 124.7 kg (275 lb) 03/07/2025 2:04 PM EDT Height 175.3 cm (5' 9 ) 03/07/2025 2:04 PM EDT Body Mass Index 40.61 03/07/2025 2:04 PM EDT Plan of Treatment Health Maintenance Due Date Last Done Comments Adult Td,Tdap Booster 1979 LIPID PANEL 1979 DEPRESSION SCREENING 1991 HIV ONE-TIME SCREENING (18-6 5 YEARS) 1997 PAP SMEAR 2000 MAMMOGRAM 2019 COLOGUARD 2024 COLONOSCOPY 2024 COLORECTAL CANCER SCREENING 2024 FIT TEST 2024 FOBT 2024 SIGMOIDOSCOPY 2024 VIRTUAL COLONOSCOPY 2024 COVID-19 VACCINE ( - 2023-2 5 season) 2024 10/21/2021, 01/03/2021, 12/12/2020 SCREENING FOR DIABETES 08/16/2025 08/16/2022 SMOKING STATUS SCREENING (Every 5 Years) 03/07/2030 03/07/2025 HEPATITIS C SCREENING Completed 09/01/2019 HEPATITIS A VACCINES Aged Out No long er eligible based on patient's age to complete this topic HIB VACCINES Aged Out No longer eligi ble based on patient's age to complete this topic MENINGOCOCCAL VACCINES (ACWY) Aged Out No longer eligible based on patient's age to complete this topic MENINGOCOCCAL VACCINES (B) Aged Out N o longer eligible based on patient's age to complete this topic PNEUMOCOCCAL VACCINES (0-49 years) Aged Out No longer eligible b ased on patient's age to complete this topic Medical Devices Not on file Insurance HEALTHY PARTNERSHIP ACO HE[employer]Y [employer]NER[employer]IP ACO HEALTHY PARTNERSHIP ACO PARTNERSHIP ACO ACO PARTNERSHIP ACO Advance Directives For more information, please contact: [phone] (9AM - 5PM [facility], Wednesday-Wednesday) * DNR OK to Intubate (Latest Code Status on File) Date Activated Date Inactivated Comments 07/28/2022 7:33 PM Question Answer Comments Code Status Confirmed With: Patient * Full Code Date Activated Date Inactivated Comments 07/27/2022 4:33 PM 07/28/2022 7:33 PM Question Answer Comments Code Status Confirmed With: Patient * Full Code Date Activated Date Inactivated Comments 07/11/2022 4:25 AM 07/27/2022 4:33 PM Question Answer Comments Code Status Confirmed With: Patient Care Teams Care Services Manager Relationship Specialty Start Date End Date Ricardo Crocker PA [address] [place] [address] PCP - General Physician Sleeve Maker 02/23/23 Additional Source Comments The information contained in this document represents components of the legal health record. It is not the complete legal health record.[facility]
== END 2025-05-22 13:49 | disposition home or self-care (01) ==
LOC: HO.HPSW 12:54
PROVIDERS: PCP Pediatrics; Visit Provider Nurse Practitioner Family
DX: R09.02 Hypoxemia (principal); J98.4 Other disorders of lung; E66.01 Morbid (severe) obesity due to excess calories; R53.81 Other malaise; Z74.01 Bed confinement status; R40.0 Somnolence
CPT/HCPCS: 99214; G2211

== ENCOUNTER → 2025-05-22 12:53 | Outpatient (BNVA) | payer OTHER, SELFPAY | PROVIDERS: PCP Pediatrics; Visit Provider Nurse Practitioner Family | DX: R09.02 Hypoxemia (principal); J98.4 Other disorders of lung; E66.01 Morbid (severe) obesity due to excess calories; R53.81 Other malaise; Z74.01 Bed confinement status; R40.0 Somnolence | CPT/HCPCS: 99212 ==

== ENCOUNTER → 2025-06-26 19:30 | Outpatient (REF) | payer OTHER, SELFPAY ==
--- OUTSIDE RECORDS SUMMARY | 2025-06-26 21:37 | XMS_ITS | Patient Health Record ---
Author Organization [facility] Network Address [address] [facility] Floor [address] [place] [address] Care Team Providers Care Gis Physical Scientist Name Role Phone Clovistravis Beronica Primary Care Provider Unavail able LINDSEY HANCOCK Unavailable [phone] Allergies Allergen (clinical drug ingredient) Drug/Non Drug Allergy documented on EMR Reaction Allergy Type Onset Date Status Information temporarily unavailable Ciprofloxacin Unknown Drug Allergy Active Information temporarily unavailable Penicillin Unknown Drug Allergy Active Reason For [...] Problem Status W/U Status Risk Notes Problem Information temporarily unavailable GERD (K21.9) Active confirmed Plan Of Treatment Pending Test Test Name Order Date CREATININE 02/11/2021 HELICOBACTER PYLORI AG, EIA, STOOL 02/11 Insurance Providers Payer Name Payer Address Payer Phone Subscriber Number Group Number Insured Name Patient Relationship to Insured Coverage Start Date Coverage End Date [facility] [address] [place] [address] [id number] Charline Osorio Self - patient is the insured [facility] [address] [place] [address] [id number] Charline Osorio Self - patient is the insured Medical (General) History Medical History History ICD Code 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
--- OUTSIDE RECORDS SUMMARY | 2025-06-26 21:37 | XMS_ITS | Encounter Summary ---
Author Organization [facility] Address [address] [place] [address] Phone Care Team Providers Care Operations Staff Specialist Security Name Role Phone Conrad Gustafson MD Primary Care Provider [phone] Garland Molina CNP Primary Care Provider [phone] Jennifer Teresa MD Unavailable [phone]- [phone] Beronica Simpson MD Primary Care Provider [phone] -[phone] Ricardo Crocker Primary Care Provider [phone]- [phone] Encounter Details Date Type Department Care Team (Late st Contact Info) Description 08/15/2021 Procedure Pass [facility], Ct Scan - [address] [address] Social History Tobacco Use Types Packs/Day Years [...] documented as of this encounter Care Teams Operations Staff Specialist Security Relationship Specialty Start Date End Date Conrad Gustafson MD [address] [place] [address] [address] [place] [address] PCP - General Family Medicine 04/23/21 10/14/21 Garland Molina CNP [address] [facility] [place] [address] [email or web address] PCP - General Family Medicine 10/15/21 07/12/22 Beronica Simpson MD [address] [place] [address] PCP - General 07/17/22 02/22/23 Ricardo Crocker PA [address] [place] [address] PCP - General Physician Speaker Mounter 02/23/23 Jennifer Teresa MD [address] [facility] [address] [place] [address] [email or web address] Insurance Assigned Provider 01/31/22 05/02/22 documented as of this encounter Additional Source Comments The information contained in this document represents components of the legal health record. It is not the complete legal health record.[facility]
--- OUTSIDE RECORDS SUMMARY | 2025-06-26 21:37 | XMS_ITS | Encounter Summary ---
Author Organization [facility] Address [address] [place] [address] Phone Care Team Providers Care Weight Reducing Technician Name Role Phone Conrad Gustafson MD Primary Care Provider [phone] Garland Molina CNP Primary Care Provider [phone] Jennifer Teresa MD Unavailable [phone]- [phone] Beronica Simpson MD Primary Care Provider [phone] Ricardo Crocker Primary Care Provider +1- [phone] Encounter Details Date Type Department Care Team (Late st Contact Info) Description 09/01/2021 Procedure Pass [facility], Ct Scan - [address] [address] Social History Tobacco Use Types Packs/Day Years [...] 09/02/2021 7:20 AM Samreen Soliman RN * English Suicide Severity Rating Scale (Screener/Recent Self-Report) Question [...] documented as of this encounter Care Teams Weight Reducing Technician Relationship Specialty Start Date End Date Conrad Gustafson MD [address] [place] [address] PCP - General Family Medicine 04/23/21 10/14/21 Garland Molina CNP [address] [place], [place] [id number] [place] [address] [email or web address] PCP - General Family Medicine 10/15/21 07/12/22 Beronica Simpson MD [address] [place] [address] PCP - General 07/17/22 02/22/23 Ricardo Crocker PA [address] [place] [address] PCP - General Physician Information Specialist 02/23/23 Jennifer Teresa MD [address] [place] [address] [email or web address] Insurance Assigned Provider 01/31/22 05/02/22 documented as of this encounter Additional Source Comments The information contained in this document represents components of the legal health record. It is not the complete legal health record.[facility]
--- OUTSIDE RECORDS SUMMARY | 2025-06-26 21:37 | XMS_ITS | Encounter Summary ---
Author Organization [facility] Address [address] [place] [address] Phone Care Team Providers Care Spray Drier Operator Name Role Phone Beronica Simpson MD Primary Care Provider [phone] Ricardo Crocker Primary Care Provider [phone]- [phone] Encounter Details Date Type Department Care Team (Late st Contact Info) Description 07/15/2022 Procedure Pass [facility] Endoscopy Admitting Dept Virtual Department [address] [place] [address] Social History Tobacco Use Types Packs/Day Years [...] on filedocumented in this encounter Care Teams Spray Drier Operator Relationship Specialty Start Date End Date Beronica Simpson MD [address] [place] [address] PCP - General 07/17/22 02/22/23 Ricardo Crocker PA [address] [place] [address] PCP - General Physician Ent Physician 02/23/23 documented as of this encounter Additional Source Comments The information contained in this document represents components of the legal health record. It is not the complete legal health record.[facility]
--- OUTSIDE RECORDS SUMMARY | 2025-06-26 21:37 | XMS_ITS | Encounter Summary ---
Author Organization [facility] Address [address] [place] [address] [place] [address] Phone Care Team Providers Care Ballroom Dance Instructor Name Role Phone Garland Molina CNP Primary Care Provider [phone] Beronica Simpson MD Primary Care Provider [phone] Ricardo Crocker Primary Care Provider [phone]- [phone] Encounter Details Date Type Department Care Team (Late st Contact Info) Description 07/11/2022 Procedure Pass [facility], Ct Scan - [facility] [address] [place], [place] [id number] Social History Tobacco Use Types Packs/Day Years [...] on filedocumented in this encounter Care Teams Ballroom Dance Instructor Relationship Specialty Start Date End Date Garland Molina CNP [address] [facility] [place], [place] [id number] [email or web address] PCP - General Family Medicine 10/15/21 07/12/22 Beronica Simpson MD [address] [place] [address] PCP - General 07/17/22 02/22/23 Ricardo Crocker PA [address] [place] [address] PCP - General Physician Dock Builder 02/23/23 documented as of this encounter Additional Source Comments The information contained in this document represents components of the legal health record. It is not the complete legal health record.[facility]
--- OUTSIDE RECORDS SUMMARY | 2025-06-26 21:37 | XMS_ITS | Encounter Summary ---
Author Organization [facility] Address [address] [place] [address] Phone Care Team Providers Care Science Tutor Name Role Phone Ricardo Crocker Primary Care Provider [phone]- [phone] Encounter Details Date Type Department Care Team (Late st Contact Info) Description 08/30/2024 Procedure Pass [facility], Ct Scan - [address] [address] Social History Tobacco Use Types Packs/Day Years [...] 08/30/2024 11:12 AM Kristyn Rdz RN * [place] Suicide Severity Rating Scale (Screener/Recent Self-Report) Question [...] on filedocumented in this encounter Care Teams Science Tutor Relationship Specialty Start Date End Date Ricardo Crocker PA [address] [place] [address] PCP - General Physician Actuary Clerk 02/23/23 documented as of this encounter Additional Source Comments The information contained in this document represents components of the legal health record. It is not the complete legal health record.[facility]
--- OUTSIDE RECORDS SUMMARY | 2025-06-26 21:37 | XMS_ITS | Patient Health Record ---
Author Organization [facility] Address [address] [place] [address] [address] [place] [address] Support Name Relationship Address Phone Charline Hernandez Guarantor Unknown Allergies Allergen (clinical drug ingredient) Drug/Non Drug Allergy documented on EMR Reaction Allergy Type Onset Date Status Information temporarily unavailable Penicillin V Potassium Unknown Drug Allergy Activ e Reason For Referral No Information Medications Medication [...] Status Risk Notes Problem Information temporarily unavailable Other chronic pain (G89.29) Active confirmed Problem Information temporarily unavailable Lumbago with sciatica, unspecified side (M54.40) Active confirmed Problem Information temporarily unavailable Chronic fatigue (R53.82) Active confirmed Problem Information temporarily unavailable 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 Problem Information temporarily unavailable Polymyalgia rheumatica syndrome (M35.3) Active confirmed Problem Information temporarily unavailable Akathisia (G25.71) Active confirmed Plan Of Treatment [...] Coverage Start Date Coverage End Date [id number] [address] [place], [place] [id number] Charline Osorio Self - patient is the insured Medical (General) History Medical History History ICD Code hx of muscle stiffness and joint stiffne ss of undetermined cause Surgical History Surgery Date(Month/Year) jaw surgery 2003 Hospitalization History Reason Date(Month/Year) stiffness, in hospital several times for this 06/2019
--- OUTSIDE RECORDS SUMMARY | 2025-06-26 21:37 | XMS_ITS | Encounter Summary ---
Author Organization [facility] Address [address] [place] [address] [place] [address] Phone Care Team Providers Care Cyber Analyst Name Role Phone Garland Molina CNP Primary Care Provider [phone] Jennifer Teresa MD Unavailable [phone]- [phone] Beronica Simpson MD Primary Care Provider [phone] Ricardo Crocker Primary Care Provider +1- [phone] Reason for Visit * Reason Onset Date Comments Medication Problem 10/31/2021 Medication Refill 11/03/2021 Encounter Details Date Type Department Care Team (Late st Contact Info) Description 10/31/2021 Telephone [facility] [address] [address] Garland Molina CNP [address] [facility] [place] [address] [email or web address] Medication Problem; Medication Refill Social History Tobacco [...] has an appointment today for telehealth with [facility] re: her Headaches. Pt states the appt is with [facility], not pain mgmt clinic. [...] for the potentially dangerous interaction with diazepam. [facility] has done some research and wishes [...] - 10/31/2021 8:56 AM EST andres ( business and services instructor ) calling with SUMAtriptan (IMITREX) 100 MG tablet Stating rx is not helping pt with migraines documented in this encounter Plan of Treatment Not on file documented as of this encounter Visit Diagnoses Not on filedocumented in this encounter Care Teams Cyber Analyst Relationship Specialty Start Date End Date Garland Molina CNP [address] [place] [address], [address] [place] [address] [email or web address] PCP - General Family Medicine 10/15/21 07/12/22 Beronica Simpson MD [address] [place] [address] PCP - General 07/17/22 02/22/23 Ricardo Crocker PA [address] [place] [address] PCP - General Physician Generation Technologist 02/23/23 Jennifer Teresa MD [address] [place] [id number] [email or web address] Insurance Assigned Provider 01/31/22 05/02/22 documented as of this encounter Additional Source Comments The information contained in this document represents components of the legal health record. It is not the complete legal health record.[facility]
--- OUTSIDE RECORDS SUMMARY | 2025-06-26 21:38 | XMS_ITS | Patient Health Record ---
Author Organization [facility] Address [address] [place], [place] [address] Support Name Relationship Address Phone Rita Begum Emergency Contact [address] [place] [address] Charline Hernandez Guarantor Unknown Allergies Allergen (clinical drug ingredient) Drug/Non Drug Allergy documented on EMR Reaction Allergy Type Onset Date Status Information temporarily unavailable Cipro Unknown Drug Allergy Active Information temporarily unavailable penicillin rash Drug Allergy Active Reason For [...] Status Risk Notes Problem Information temporarily unavailable Vitamin D deficiency, unspecified (E55.9) Active confirmed Problem Information temporarily unavailable Anxiety disorder, unspecified (F41.9) Active confirmed Problem Information temporarily unavailable Sleep related leg cramps (G47.62) Active confirmed Problem Information temporarily unavailable Atherosclerosis of renal artery (I70.1) Active confirmed Problem Information temporarily unavailable Fibromyalgia (M79.7) Active confirmed Problem Information temporarily unavailable Sara-Danlos syndrome, 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
--- OUTSIDE RECORDS SUMMARY | 2025-06-26 21:38 | XMS_ITS | Clinical Summary ---
Author Organization [facility] Address [address] [place] [address] Phone Care Team Providers Care Senior Project Architect Name Role Phone Ricardo Crocker Primary Care Provider [phone]- [phone] Allergies Active Allergy Reactions Criticality Noted Date Comments Amoxicillin 02/18/2020 Ciprofloxacin Hcl 03/03/2021 Penicillins 03/03/2021 Quinolones 09/15/2020 Other Reaction(s): risk of tendon repture Metoclopramide Hcl 07/10/2022 Patient states I am allergic to reglan and anything else that causes akathesia Medications diazePAM (VALIUM) 5 MG tablet Take 5 mg by mouth daily. Verified with PDMP, prescribed by doc in [place] Active baclofen (LIORESAL) 10 MG tablet Take 10 mg by mouth daily. Pt states she is prescribed this by an MD in [place] Dr. Roberta Boo No records available 10/15/19 [...] Plan (07/16/2022 7:23 PM EDT): Records from [facility] as well as [place] specialist reviewed. She carries a diagnosis of [...] afternoon. Her labs are normal. 07/14-fluids discontinued 10/20-tolerating small amounts of water and oral Ativan [...] by patient should be disregarded Spasticity 03/03/2021 Immunizations Immunization Administration Dates Next Due COVID-19 [...] witih recur rence. Heart attack Paternal Grandmother Sara-Danlos syndrome Sister Heart murmur Sister Glaucoma Neg [...] FOBT 2024 SIGMOIDOSCOPY 2024 VIRTUAL COLONOSCOPY 2024 INFLUENZA VACCINE (#1) 2025 COVID-19 VACCINE (2024-2 6 season) 2025 10/21/2021, 01/03/2021, 12/12/2020 SCREENING FOR DIABETES 08/16/2025 [...] topic Medical Devices Not on file Insurance ACO ACO PARTNERSHIP ACO HEALTHY PARTNERSHIP ACO ACO PARTNERSHIP ACO Advance Directives For more information, please contact: [phone] (9AM - 5PM [facility], Wednesday-Wednesday) * DNR OK to Intubate [...] Code Status Confirmed With: Patient Care Teams Senior Project Architect Relationship Specialty Start Date End Date Ricardo Crocker PA [address] [place] [address] PCP - General Physician Safety Spec 02/23/23 Additional Source Comments The information contained in this document represents components of the legal health record. It is not the complete legal health record.[facility]
== END ==
LOC: HO.SL 19:30
PROVIDERS: PCP Pediatrics; Visit Provider Nurse Practitioner Family
DX: R40.0 Somnolence (principal); E66.2 Morbid (severe) obesity with alveolar hypoventilation
CPT/HCPCS: 95810

== ENCOUNTER → 2025-06-26 21:28 | Outpatient (BNV) | payer OTHER, SELFPAY | PROVIDERS: PCP Pediatrics; Visit Provider Internal Medicine | DX: G47.33 Obstructive sleep apnea (adult) (pediatric) (principal) | CPT/HCPCS: 95810 ==

== ENCOUNTER 2025-08-03 12:50 | Outpatient (AMB) | payer OTHER, SELFPAY ==
--- NOTE | 2025-08-03 12:56 | A.OFFVIS_ITS ---
Vital Signs 08/03/25 13:02 Height 5 ft 1 in BMI Reason not done Patient refused/unable BP 100/62 Blood Pressure Location Rt brachial Position Supine Pulse 77 Pulse Source Pulse Oximeter Pulse Oximetry (%) 92 Oxygen Delivery Method Room Air Intake Visit Reasons: Dyspnea Allergies ciprofloxacin Allergy (Verified 08/03/25 13:04) Swelling Penicillins Allergy (Verified 08/03/25 13:04) Swelling HPI HPI Dyspnea: Details: Charline is a pleasant 45 year old female, former 25 pack year smoker, with underlying HTN, DMII, peripheral neuropathy, migraine, GERD, morbid obesity, somatoform disorder, PTSD, borderline personality, and chronically bed-bound came in by ambulance. She is accompanied by one of her physicians and surgeons. Reviewed prior records which document nonambulatory status back to 2021 in which she had a prolonged hospital stay at [facility]. Per report patient has been bedbound for many weeks secondary to weakness from gastritis causing her to have decreased PO intake and failure to thrive. At that time diagnosed with underlying somatoform disorder, previously under the care of neuropsychiatry. She has multiple NURSE PRACTITIONER HOME ASSESSMENTS who provide 24 hour care. Today she arrives via stretcher and accompanied by NURSE PRACTITIONER HOME ASSESSMENTS. She was initially referred by PCP for pulmonary evaluation and had established with Dr. Uribe however requested female provider. He had sent for venous blood gases which did not reveal significant CO2 retention. Unknown weight, as patient has not been weighed in quite some time. Appears morbidly obese. Previously on Ozempic, then Zepbound unsure of effectiveness, now on Trulicity. She was seen inpatient at [facility] and displayed symptoms suggestive of OSBALDO/OHS. Prior home sleep study negative and was sent for in lab PSG. Home sleep study did demonstrate significant heart rate variability, recent work up with cardiology revealed normal holter monitoring. She also had new onset hypoxia on July 2024 admission and has been using 2- 3L supplemental oxygen continuously except 1-2 hours per day. She notes checking oxygen saturation at home, now able to take O2 off for 4 hours per day, sats staying around 97%. She also notes increased timing in an upright position depending on staff, approximately 4 hours at a time a few times per week as well as physical therapy. She denies any dyspnea, wheezing or chest tightness c ontinues to report intermittent cough. She denies any visits to urgent care or hospitalizations since the last visit. [facility] Medical History Hypoventilation associated with obesity syndrome Restrictive lung disease Somatoform disorder Migraines Depression Borderline personality disorder DM2 (diabetes mellitus, type 2) PTSD (post-traumatic stress disorder) Bedbound Social History Household Members: None Housing: House Do you presently have visiting nurse or other home services: Yes ([facility] 19/04[facility] Patient Tobacco Use Status: Former Tobacco user Tobacco use type: Cigarette Cigarette Packs Per Day: 1.0 Years Smoked: 25 years Second Hand Smoke Exposure: No service: No Review of Systems Const Denies chills, Reports daytime sleepiness, Denies excessive sweating, Denies fever(s), Denies night sweats and Reports weakness Eyes Denies dry eyes, Denies irritation and Denies itchy eyes ENT Reports Normal hearing present, Denies nasal congestion, Denies nasal discharge, Denies post nasal drip and Denies sore throat Card Denies chest pain, Denies chest pain at rest, Denies chest pain with activity, Denies claudication, Denies leg edema, Denies dyspnea, Denies dyspnea on exertion, Denies orthopnea and Denies paroxysmal nocturnal dyspnea Resp Denies chest congestion, Denies excessive phlegm production, Denies pain on inspiration, Denies pain with cough, Denies dyspnea, Denies dyspnea on exertion, Denies stridor and Denies wheezing Musc Denies myalgias Neuro Reports Normal hearing present and Reports weakness Endo Denies excessive sweating Freddie/Lymph Denies lymphadenopathy Aller/Immun Denies itchy eyes, Denies seasonal rhinorrhea and Denies wheezing Physical Exam Vital Signs: Last Vital Signs Pulse 77 08/03/25 13:02 BP 100/62 08/03/25 13:02 Pulse Ox 92 08/03/25 13:02 Oxygen Delivery Method Room Air 08/03/25 13:02 Const Other: confined to stretcher in lateral position, obese abdomen General: cooperative, no acute distress and alert Nutritional Appearance: obese Orientation/consciousness: patient oriented x3 Limitations: physical limitations HEENT Head: Yes normal to inspection, Yes normocephalic and Yes atraumatic Ears: hearing grossly normal bilaterally and external ears normal Eyes Eyelids: Yes eyelids normal Sclerae: sclerae normal EOM: EOMs intact bilaterally Chest Chest palpation & inspection: normal inspection of the chest Resp Effort & Inspection: normal respiratory effort, able to speak in complete sentences, no audible wheezes, no cough, no stridor, not tachypneic, no tripod positioning and no use of accessory muscles Auscultation: diminished lung sounds Cardio Jugular venous distension: no JVD Rate: regular rate Rhythm: regular rhythm Skin Other: warm, dry General skin exam: no rashes or lesions noted Neuro General: patient oriented x3 Cranial nerves: Yes Normal hearing present Cognition (Neuro): normal cognition Extrem Other: contracted BLE General: Yes normal to inspection, Yes no clubbing, cyanosis or edema and Yes no pedal edema Psych Appearance: grossly normal and well kempt Speech and movement: Normal speech and movement present and Clear speech present Affect: normal affect Attitude: cooperative Thought process: Normal thought process present Thought content: Normal thought content present Assessment & Plan Assessment & Plan (1) Obstructive sleep apnea: Code(s): G47.33 - Obstructive sleep apnea (adult) (pediatric) Category: Medical (2) Hypoxia: Code(s): R09.02 - Hypoxemia Category: Medical (3) Restrictive lung disease: Code(s): J98.4 - Other disorders of lung Category: Medical (4) Morbid obesity: Code(s): E66.01 - Morbid (severe) obesity due to excess calories Category: Medical (5) Physical deconditioning: Code(s): R53.81 - Other malaise Category: Medical (6) Bedbound: Comment: BECAUSE OF MORBID OBESITY AND ALSO WEAKNESS OF LOWER EXTREMITIES SHE REMAINS BED CONFINED. Code(s): Z74.01 - Bed confinement status Category: Medical Plan Reviewed in lab PSG which revealed borderline OSBALDO AHI 5.2, however during SAW AHI 17.1, suggesting moderate OSBALDO with mild nocturnal hypoxemia <88% for 11.4 minutes, lowest 71% average 94%. Since patient is quite symptomatic, will start CPAP therapy. Will send in prescription for APAP mode and pressure settings of 5-20 cmH20 with close monitoring for compliance and benefits. Sleep hygiene education reviewed. She is aware if there are any issues with the mask or CPAP machine, she will call the DME/office. Once established on CPAP therapy, will send for overnight oximetry to ensure resolution of nocturnal hypoxemia with CPAP use. Discussed importance of maintaining >92% and continued need for supplemental oxygen 2L during the day. Discussed importance of weight loss as well as working with PT and maintaining an upright position, as she is mostly supine. Emphasized importance of using incentive spirometer and breathing exercises which she has been using. All questions were answered and patient is in agreement of plan. Will follow up in 3 months or sooner if needed. Coding Level of Care Code Est Pt Level 4 (98970) Complex EM visit Add On G2211 Diagnoses Obstructive sleep apnea G47.33 Hypoxia R09.02 Restrictive lung disease J98.4 Morbid obesity E66.01 Physical deconditioning R53.81 Bedbound Z74.01
[2025-08-03 13:02] VITALS: BP 100/62; PULSE 77; O2SAT 92
--- OUTSIDE RECORDS SUMMARY | 2025-08-03 14:58 | XMS_ITS | Patient Health Record ---
Author Organization [facility] Address [address] [facility] [facility] [address] 1 [place] [address] Care Team Providers Care Typing Section Chief Name Role Phone Clovistravis Beronica Primary Care Provider Benton barrios HANCOCKLINDSEY Unavailable [phone] Allergies Allergen (clinical drug ingredient) Drug/Non Drug [...] Status Risk Notes Problem Gastroesophageal reflux disease (572194037) GERD (K21.9) Active confirmed Plan Of Treatment Pending Test Test Name Order Date CREATININE 02/11/2021 HELICO[employer]ER PYL[employer]I [employer], EIA, STOOL 02/11 Insurance Providers Payer Name Payer Address Payer Phone Subscriber Number Group Number Insured Name Patient Relationship to Insured Coverage Start Date Coverage End Date [facility] [address] [place] [phone] [id number] Charline Osorio Self - patient is the insured [facility] DIRECT PLAN [address] [place] [place] [phone] [id number] Charline Osorio Self - patient is the insured Medical (General) History Medical History History ICD Code 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
--- OUTSIDE RECORDS SUMMARY | 2025-08-03 14:58 | XMS_ITS | Patient Health Record ---
Author Organization [facility] Address [address] [place], [place] [address] Support Name Relationship Address Phone Rita Begum Emergency Contact [address] [place] [address] Charline Hernandez Guarantor Unknown [phone] Allergies Allergen (clinical drug ingredient) Drug/Non Drug [...] Status Risk Notes Problem Vitamin D deficiency (33043860) Vitamin D deficiency, unspecified (E55.9) Active confirmed Problem Anxiety disorder (845706064) Anxiety disorder, unspecified (F41.9) Active confirmed Problem Cramp in lower leg associated with rest (275721557) Sleep related leg cramps (G47.62) Active confirmed Problem Atherosclerosis of renal artery (07462533) Atherosclerosis of renal artery (I70.1) Active confirmed Problem Fibromyalgia (007638418) Fibromyalgia (M79.7) Active confirmed Problem 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
--- OUTSIDE RECORDS SUMMARY | 2025-08-03 14:58 | XMS_ITS | Data Portability ---
Author Organization [place] [facility] Address [address] [place] [address] Care Team Providers Care Physician Underwriter Name Role Phone AMOR ROSARIO Primary Care Provider Assessment Encounter Date Assessment Date Assessment LastModified by Organization Details LastModified Time 07/04/2022 07/04/2022 INCOMPLETE DO NOT BILL RESCHEDULED lnovia Not available 07/04/2022 11:54:31 07/06/2022 07/06/2022 Overview/History : 42 YO F new to DH and new to provider She is being seen today as her INDUSTRIAL ENGINEERING ANALYST aides and family are very concerned about patient well being. Addn patient is concerned as well as she has been unable to drink, eat, stand, get to bathroom, dress herself. She has 24/7 INDUSTRIAL ENGINEERING ANALYST care. Was recently in hospital, [facility], and was there for [...] exam at this time d/t her anxiety. -tool planner and family )as well as pt herself) [...] and takes. -She is handed off to [facility] [employer] who knows her and she gets in the ambulance to go with them -Her college close friend chika is going to meet her at the hopsital to help her anxiety and she is going to [facility] whom I did call expect to I called and updated pt sister as pt would like us to do that and the patient, her tool planner, and pt herself thanks us for our [...] I have accessed patient records on the [employer]. This information was pertinent in [...] Name and Address Organization Details Recorded Time 804080 Product containin g penicilli n (product) medicatio n Not available Not available Not available 07/04/2022 69801 8001 SNOMED Ada Shah, INDEPENDENT JEWELER [address], [place], [address], [place] [facility] 10:55:43 [id number] Cipro medicatio n Not available Not available Not available 07/04/2022 30019 3 RxNorm Ada Shah, INDEPENDENT JEWELER [address], [place], [address], [place] [facility] 10:55:47 [...] N Cancer N Stroke N Dementia N Asthma N Hypothyroidism N Depression N COPD N High Cholesterol N Rheumatoid Arthritis N Pulmonary Embolism N Hypertension N A-fib N Osteoporosis N Kidney Disease N Gynecological HistoryNo gynecological history recorded. Obstetrics History GPAL:G 0 P 0 0 0 0 Past Encounters Encounter ID Performer Location Encounter Start Date Encounter Closed Date Diagnosis/Indication Diagnosis SNOMED-CT Code Diagnosis ICD10 Code Diagnosis IMO Codes Diagnosis Note [id number] Ada Shah NP [facility] [address] [place] [address] 07/04/2022 10:50:21 07/04/2022 11:34:19 [id number] BRENDA Holder [facility] [address] [place] [address] 07/06/2022 16:25:21 07/07/2022 12:43:22 Tachycardia 9602832 R00.0 Adult fail ure to thrive syndrome 715775407 R62.7 Health Concerns Section Related Observation LastModified [...] Rothmaneduarda 07/07/2022 1 [place] Charline Rothmaneduarda [id number] Charline Rothmaneduarda 07/03/2022 1 *SELF PAY* Charline Rothmaneduarda [id number] Charline Rothmaneduarda 07/21/2022 1 [place] Charline Rothmanjenaeberg [id number] Charline Rothmaneduarda 09/09/2022 1 [place] Charline Rothmaneduarda [id number] Charline Mary 07/22/2022 1 [facility] (MEDICAID REPLACEMENT - HMO) [id number] Charlinechelo Hernandez [id number] Charlinechelo Hernandez 07/07/2022 1 [facility] (MEDICAID REPLACEMENT - HMO) [id number] Charline Hernandez [id number] Charline Hernandez Notes Date Note Type Note Provider Name and Address Organization Details Recorded Time 07/04/2022 text/html 42 yo f who presents for possible UTI and wanting blood work. Ada Shah NP [address] [place], [address], [place] [facility] 07/04/2022 11:54:43 07/06/2022 text/html 42 YO F new to DH and new to providerShe is being seen today as her INDUSTRIAL ENGINEERING ANALYST aides and family are very concerned about patient well being. Robynn patient is concerned as well as she has been unable to drink, eat, stand, get to bathroom, dress herself. She has 24/7 INDUSTRIAL ENGINEERING ANALYST care. Was recently in hospital, [facility], and was there for [...] hospital level care. BRENDA Bolton [address] [place], [address], [place] [facility] 07/06/2022 18:04:19 OBGyn Episode No OBEpisode recorded.
--- OUTSIDE RECORDS SUMMARY | 2025-08-03 14:58 | XMS_ITS | Patient Health Record ---
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 Problem Polymyalgia rheumatica (33646322) Polymyalgia rheumatica syndrome (M35.3) Active confirmed Problem Akathisia (490089117) Akathisia (G25.71) Active confirmed Plan Of Treatment Pending Test Test Name Order Date Potassium, Serum 05/24/2018 Magnesium, Serum 08/10/2019 Fibrinogen Activity 04/21/2019 Aldolase 04/21/2019 TSH 08/10/2019 TSH 04/21/2019 TSH 05/17/2018 Sedimentation Rate-Westergren 05/17/2018 ELIAS Comprehensive Panel 04/21/2019 ELIAS Comprehensive Panel 08/10/2019 Hepatitis BsAb 08/10/2019 Hepatitis BsAb 04/21/2019 Hepatitis BsAg 04/21/2019 Hepatitis BsAg 08/10/2019 Chem-Comprehensive 08/10/2019 Chem-Comprehensive 04/21/2019 Chem-Comprehensive 12/09/2018 Chem-Comprehensive 05/17/2018 TSH 12/09/2018 HEPATITIS C AB 04/21/2019 HEPATITIS [...] End Date [employer] [address] [place], [place] [id number] Charline Osorio Self - patient is the insured Medical (General) History Medical History History ICD Code hx of muscle stiffness and joint stiffne ss of undetermined cause Surgical History Surgery Date(Month/Year) jaw surgery 2004 Hospitalization History Reason Date(Month/Year) stiffness, in hospital several times for this 06/2019
== END 2025-08-03 13:40 | disposition home or self-care (01) ==
LOC: HO.HPSW 12:50
PROVIDERS: PCP Pediatrics; Visit Provider Nurse Practitioner Family
DX: G47.33 Obstructive sleep apnea (adult) (pediatric) (principal); R09.02 Hypoxemia; J98.4 Other disorders of lung; E66.01 Morbid (severe) obesity due to excess calories; R53.81 Other malaise; Z74.01 Bed confinement status
CPT/HCPCS: 99214; G2211

== ENCOUNTER → 2025-08-03 12:50 | Outpatient (BNVA) | payer OTHER, SELFPAY | PROVIDERS: PCP Pediatrics; Visit Provider Nurse Practitioner Family | DX: J98.4 Other disorders of lung (principal); R09.02 Hypoxemia; G47.33 Obstructive sleep apnea (adult) (pediatric); F45.9 Somatoform disorder, unspecified; R53.81 Other malaise; E66.01 Morbid (severe) obesity due to excess calories; Z74.01 Bed confinement status | CPT/HCPCS: 99212 ==